=== PATIENT | female | born 1995 | race Caucasian/White ===

== ENCOUNTER 2016-11-11 06:00 | Inpatient (IN) | payer OTHER ==
[2016-11-11] MEDS ORDERED: CARBOPROST TROMETHAMINE 250 MCG/ML 1 ML AMP IM PRN (07:31)
[2016-11-11] MEDS ORDERED: LIDOCAINE 1% (PF) 10 MG/ML (30 ML SDV) SQ PRN (07:31)
[2016-11-11] MEDS ORDERED: OXYTOCIN 10 UNIT/ML 1 ML VIAL IM PRN (07:31)
[2016-11-11] MEDS ORDERED: TERBUTALINE 1 MG/ML VIAL SQ PRN (07:31)
[2016-11-11] MEDS ORDERED: METHYLERGONOVINE 0.2 MG/ML 1 ML AMP IM PRN (07:31)
[2016-11-11] MEDS: LACTATED RINGERS 1,000 ML IV SCH ×4 (07:44→23:07)
[2016-11-11] MEDS ORDERED: OXYTOCIN 30 UNITS/500 ML NS 30 UNIT in SALINE 1 500ML.BAG IV SCH ×2 (07:45→20:45)
[2016-11-11 08:23] VITALS: BMI 33.2
[2016-11-11 08:43] LABS: Basophils % (A) 0 %; Eosinophils # (A) 0.2 k/uL (0-0.7); Eosinophils % (A) 2 %; HCT 36.8 % (34.0-46.0); HDW 2.55; HGB 11.9 gm/dL (11.4-16.0); Large Platelets Flag Moderate; Luc # (Auto) 0.24; Luc % (Auto) 3; Lymphocytes # (A) 2.8 k/uL (1.0-4.8); Lymphocytes % (A) 30 %; MCH 29.5 pg (25.0-35.0); MCHC 32.3 g/dL (31.0-37.0); MCV 91.3 fL (80.0-100.0); Monocytes # (A) 0.5 k/uL (0-1.0); Monocytes % (A) 5 %; Neutrophils # (A) 5.6 k/uL (1.3-7.7); Neutrophils % (A) 60 %; RBC 4.03 m/uL (3.80-5.40); RDW 14.2 % (11.5-15.5); WBC 9.3 k/uL (3.8-10.6); WBC (Perox) 10.04
--- NOTE | 2016-11-11 08:46 | P.HPOB ---
History of Present Illness H&P Date: 11/11/16 Chief Complaint: IUP term: grade III placenta Jennifer is a 21-year-old at 39 weeks gestation arise for induction of labor. Her cervix is dilated to 1 cm she's 8% effaced -2 station. Artificial rupture membranes was performed and clear fluid is noted. Her course has been, K by a great 3 placenta in the latter part of the for which she is receiving nonstress tests. Otherwise she is feeling well at this time and had no other significant problems with the . Her pertinent labs did include A- blood type Rh antibody was negative rubella was nonimmune hepatitis B surface antigen as well as RPR were both negative. Group B strep was also negative. Assessment intrauterine at term. Plan expect spontaneous vaginal delivery and she plans use epidural for analgesia. Past Medical History Past Medical History: Asthma Additional Past Medical History / Comment(s): allergies History of Any Multi-Drug Resistant Organisms: None Reported Past Surgical History: No Surgical Hx Reported Past Anesthesia/Blood Transfusion Reactions: No Reported Reaction Past Psychological History: No Psychological Hx Reported Smoking Status: Former smoker Past Alcohol Use History: None Reported Past Drug Use History: None Reported - Past Family History Mother Family Medical History: Asthma Medications and Allergies Home Medications Medication Instructions Recorded Confirmed Type Albuterol Sulfate [Proair Hfa] 2 puff INHALATION RT-QID PRN 04/15/16 10/10/16 History Fluticasone/Salmeterol [Advair 1 puff INHALATION RT-BID 04/15/16 10/10/16 History 500-50 Diskus] Pnv with Ca,No.72/Iron/FA 1 tab PO DAILY 10/10/16 10/10/16 History [ Plus Tablet] Allergies Allergy/AdvReac Type Severity Reaction Status Date / Time cat dander Allergy Unknown Verified 10/10/16 00:42 dandelion (Taraxacum Allergy Unknown Verified 10/10/16 00:42 officinale) dog dander Allergy Unknown Verified 10/10/16 00:42 grass pollen Allergy Unknown Verified 10/10/16 00:42 mold Allergy Unknown Verified 10/10/16 00:42 oak Allergy Unknown Verified 10/10/16 00:42 peanut Allergy Unknown Verified 10/10/16 00:42 peas Allergy Unknown Verified 10/10/16 00:42 DUST Allergy Unknown Uncoded 10/10/16 00:42 PINE TREES Allergy Unknown Uncoded 10/10/16 00:42 Exam Osteopathic Statement: *. No significant issues noted on an osteopathic structural exam other than those noted in the History and Physical/Consult. - Vital Signs Vital signs: Vital Signs Temp Pulse Resp BP 11/11/16 07:30 97.0 F L 74 16 103/65 Intake and Output 11/10/16 11/11/16 11/11/16 22:59 06:59 14:59 Other: Weight 72.121 kg Patient Weight 11/12/16 06:59 Weight 72.121 kg - OBG Physical Exam Breast: both: normal (no masses) Abdomen: bowel sounds normal, no diffuse tenderness, no bruit present, no guarding noted, no hepatomegaly, no splenomegaly, no mass Vulva: both: normal Vagina: normal moisture, no discharge Cervix: no lesion, no discharge Uterus: normal size, normal contour Adnexa: both: normal Anus/Rectum: normal perianal skin, no rectal mass, no hemorrhoids, heme negative
[2016-11-11 09:18] LABS: Large Platelets Present; Manual Review Performed
[2016-11-11] MEDS: BUTORPHANOL 1 MG/ML 1 ML VIAL IV PRN ×3 (11:49→18:32)
[2016-11-11] MEDS ORDERED: ceFAZolin 2 GM in SODIUM CHLORIDE 0.9% 100 ML IVPB ONE (19:44)
[2016-11-11] MEDS ORDERED: CITRIC ACID-SODIUM CITRATE 15 ML CUP PO ONE (19:44)
[2016-11-11] MEDS ORDERED: MORPHINE SULFATE (PF) 0.3 MG/0.3 ML SYR ONE (20:01)
[2016-11-11] MEDS ORDERED: ePHEDrine 50 MG/ML 1 ML AMP ONE (20:01)
[2016-11-11] MEDS ORDERED: fentaNYL (PF) 50 MCG/ML 2 ML AMP ONE (20:01)
[2016-11-11] MEDS ORDERED: ONDANSETRON 4 MG/2 ML VIAL ONE (20:01)
[2016-11-11] MEDS ORDERED: OXYTOCIN 10 UNIT/ML 1 ML VIAL IM ONE (20:01)
[2016-11-11] MEDS ORDERED: Acetaminophen-Codeine 300-30mg TAB PO PRN (20:40)
[2016-11-11] MEDS ORDERED: SIMETHICONE 80 MG CHEWABLE PO PRN (20:40)
[2016-11-11] MEDS ORDERED: diphenhydrAMINE 50 MG/ML 1 ML VIAL IVP PRN ×2 (20:40)
[2016-11-11] MEDS ORDERED: diphenhydrAMINE 25 MG CAP PO PRN (20:40)
[2016-11-11] MEDS ORDERED: MEASLES-MUMPS-RUBELLA VACC/PF 12,500 UNIT/0.5 ML VIAL SQ ONE (20:40)
[2016-11-11] MEDS ORDERED: ACETAMINOPHEN TAB 325 MG TAB PO PRN (20:40)
[2016-11-11] MEDS ORDERED: diphenhydrAMINE 50 MG CAP PO PRN (20:40)
[2016-11-11] MEDS ORDERED: ZOLPIDEM 5 MG TAB PO PRN (20:40)
[2016-11-11] MEDS ORDERED: METOCLOPRAMIDE 5 MG/ML 2 ML VIAL IVP PRN (20:40)
--- NOTE | 2016-11-11 20:45 | P.OP ---
Date of Procedure: 11/11/16 Preoperative Diagnosis: Intrauterine at 39 weeks with grade 3 placenta: Arrested dilatation Postoperative Diagnosis: Same Procedure(s) Performed: Primary low transverse section from Pfannenstiel Anesthesia: spinal Surgeon: Evan Verdin Edi Specialist #1: Kelli Krause Estimated Blood Loss (ml): 400 IV fluids (ml): 1,000 Urine output (ml): 100 Pathology: other (Placenta) Condition: stable Disposition: floor Operative Findings: Female scores of 9 and 10 at one and 5 minutes Plover weight was 6 lbs. 15 oz. baby was delivered from left occiput transverse position with a cord around the body Description of Procedure: Patient was taken to the operating suite where a spinal anesthetic was found to be adequate. She was prepped and draped in the normal sterile fashion and placed in the dorsal supine position with leftward tilt. Initially a Pfannenstiel skin incision was made and this incision was then carried through to underlying layer of the fashion with second knife. Fascia was then nicked in the midline and this opening was extended laterally with Torrez scissors. Superior and inferior aspect of this incision were then grasped tented up and bluntly and sharply dissected off the rectus muscles. Rectus muscles were then divided the midline and sharp dissection through the peritoneum was made. This opening was then extended superiorly and inferiorly with good visualization of both bowel bladder. Bladder blade was then placed vesicouterine peritoneum was identified and grasped with pickups. Was entered sharply with Metzenbaum scissors and extended across face of the uterus. Bladder flap was then digitally created. Knife was then used to incise uterus this opening was then created fully with hemostat and then was bluntly extended. Head was then atraumatically delivered and mouth nares were bulb suctioned. Interim posterior shoulders were then delivered gentle downward and upward traction followed by the remainder the baby. Umbilical cord was clamped and cut in usual fashion an nursery personnel was present to assume care. Placenta was then delivered intact Pitocin was added to the IV uterus was exteriorized cleared of clots and debris and closed in 2 layers with 0 Vicryl suture. Once excellent hemostasis was obtained 3-0 Vicryl was used to reapproximate the bladder flap. Blood and debris was suctioned from the posterior cul-de-sac and the uterus was reinserted into the abdomen. Peritoneal layer was then closed with 0 Vicryl suture fascial layer was closed with 0 Vicryl suture one layer of 3-0 Vicryl was placed in deep subcuticular tissues reapproximate the skin and close the space and skin was closed with 3-0 Vicryl on a Shabbir needle. Sponge, lap, needle counts were all correct 2 and patient was taken to the recovery room in stable and satisfactory condition.
[2016-11-12] MEDS ORDERED: Rhogam IMMUNE GLOBULIN 1,500 UNIT/1 ML IM ONE (03:59)
[2016-11-12] MEDS: KETOROLAC 30 MG/ML 1 ML VIAL IVP PRN ×4 (04:28→23:38)
[2016-11-12] MEDS: LACTATED RINGERS 1,000 ML IV SCH (07:59)
[2016-11-12] MEDS: SENNOSIDES-DOCUSATE SODIUM 1 EACH TAB PO SCH ×2 (08:28→20:30)
--- NOTE | 2016-11-12 08:46 | P.PNOBGPC ---
Subjective - Subjective Principal diagnosis: Postop day 1 Interval history: Jennifer seen and evaluated. She is ambulating, voiding and she is tolerating her diet this time. Vital signs are stable and she is afebrile. Her regular, lungs clear, extremities without pain. Assessment postop day 1. Plan continue current care. Objective - Vital Signs Latest vital signs: Vital Signs Temp Pulse Resp BP Pulse Ox 11/12/16 08:00 97.4 F L 68 17 106/64 97 11/12/16 03:30 99.0 F 73 14 99/69 11/11/16 22:55 97.5 F L 75 16 105/58 11/11/16 22:25 100 16 135/61 11/11/16 21:55 87 16 101/57 11/11/16 21:40 82 16 119/67 11/11/16 21:25 88 16 112/54 11/11/16 21:10 108 H 16 126/66 11/11/16 20:55 97.5 F L 96 16 120/69 Intake and Output 11/11/16 11/12/16 11/12/16 22:59 06:59 14:59 Intake Total 1000 Output Total 2000 Balance -1000 Intake: IV 1000 Lactated Ringers 1,000 ml 1000 @ 125 mls/hr IV .Q8H KAYODE Rx#:[id number] Output: Urine 2000 Uretheral ([place]) 1400 Other: # Voids 0 - Exam Lungs: bilateral: normal Chest: Normal S1, Normal S2 Extremities: Present: normal Abdomen: Present: normal appearance, soft. Absent: distention, tenderness Incision: Present: normal, dry, intact Uterus: Present: normal, firm
[2016-11-12 09:56] LABS: Basophils % (A) 0 %; CH 29.9; CHCM 32.6; Eosinophils # (A) 0.1 k/uL (0-0.7); Eosinophils % (A) 1 %; HCT 33.9 % (34.0-46.0); HDW 2.48; HGB 11.1 gm/dL (11.4-16.0); Large Platelets Flag Moderate; Luc # (Auto) 0.16; Luc % (Auto) 2; Lymphocytes # (A) 1.7 k/uL (1.0-4.8); Lymphocytes % (A) 19 %; MCH 30.1 pg (25.0-35.0); MCHC 32.7 g/dL (31.0-37.0); Mean Platelet Volume 11.5; Monocytes # (A) 0.5 k/uL (0-1.0); Monocytes % (A) 6 %; Neutrophils # (A) 6.4 k/uL (1.3-7.7); Neutrophils % (A) 72 %; RBC 3.68 m/uL (3.80-5.40); RDW 14.2 % (11.5-15.5); WBC (Perox) 9.23
--- NOTE | 2016-11-12 10:12 | P.PN ---
Progress Note - Text 0720 Anesthesia POD 1. Patient is status post section under final anesthesia with intra-thecal preservative free morphine re-100 g. Moderate pruritus, good post-op analgesia, and O headache or other complications.
[2016-11-12 11:24] LABS: Large Platelets Present; Manual Review Performed
[2016-11-12] MEDS: Acetaminophen-Codeine 300-30mg TAB PO PRN (20:30)
[2016-11-13] MEDS: Acetaminophen-Codeine 300-30mg TAB PO PRN (03:51)
[2016-11-13] MEDS: SENNOSIDES-DOCUSATE SODIUM 1 EACH TAB PO SCH ×2 (07:50→20:49)
[2016-11-13] MEDS: IBUPROFEN 600 MG TAB PO PRN ×2 (08:12→17:00)
--- NOTE | 2016-11-13 08:44 | P.PNOBGPC ---
Subjective - Subjective Principal diagnosis: Postoperative day 2 Interval history: Overall Jennifer is doing well. She is able to ambulate and void. She is tolerating her diet. She does report pain pills that she is on her not controlled her pain is well she would like we'll therefore switch her to [place]. Otherwise her vital signs are stable and she is afebrile. Objective - Vital Signs Latest vital signs: Vital Signs Temp Pulse Resp BP Pulse Ox 11/13/16 07:48 98.2 F 66 16 111/68 11/13/16 04:00 97.5 F L 84 16 114/69 11/13/16 00:00 98.1 F 78 16 97/56 11/12/16 20:00 98.4 F 62 16 99/59 11/12/16 16:00 97.4 F L 77 17 99/63 96 11/12/16 12:00 97.9 F 71 19 99/52 96 Intake and Output 11/12/16 11/13/16 11/13/16 22:59 06:59 14:59 Other: # Voids 2 2 - Exam Lungs: bilateral: normal Chest: Normal S1, Normal S2 Extremities: Present: normal Abdomen: Present: normal appearance, soft. Absent: distention, tenderness Incision: Present: normal, dry, intact Uterus: Present: normal, firm - Labs Labs: Abnormal Lab Results - Last 24 Hours (Table) 11/12/16 Range/Units 09:13 RBC 3.68 L (3.80-5.40) m/uL Hgb 11.1 L (11.4-16.0) gm/dL Hct 33.9 L (34.0-46.0) % Plt Count 123 L (150-450) k/uL
[2016-11-13] MEDS ORDERED: HYDROcodone/APAP 5-325MG 1 EACH TAB PO PRN (08:45)
[2016-11-13] MEDS: HYDROcodone/APAP 5-325MG 1 EACH TAB PO PRN ×2 (12:39→20:48)
[2016-11-14] MEDS: HYDROcodone/APAP 5-325MG 1 EACH TAB PO PRN ×3 (01:03→22:05)
[2016-11-14] MEDS: SENNOSIDES-DOCUSATE SODIUM 1 EACH TAB PO SCH ×2 (07:27→19:56)
--- NOTE | 2016-11-14 10:40 | P.PNOBGPC ---
Subjective - Subjective Principal diagnosis: Postop day 3 Interval history: Patient overall is doing well. She is ambulating, voiding and tolerating her diet. However she does voice that she still has significant pain that she has difficulty after meeting hour after to our's after taking pain medicine as pain comes back is very bad. She would like to stay until tomorrow and see if we get her pain is better under control. Vital signs otherwise stable she is afebrile. Heart regular, lungs clear, extremities without pain. Abdomen is soft uterus is firm incision is clean dry and intact. Objective - Vital Signs Latest vital signs: Vital Signs Temp Pulse Resp BP Pulse Ox 11/14/16 07:27 97.8 F 76 16 110/71 11/14/16 00:00 97.8 F 66 16 120/69 97 11/13/16 15:42 98.0 F 63 16 102/60 - Exam Lungs: bilateral: normal Chest: Normal S1, Normal S2 Extremities: Present: normal Abdomen: Present: normal appearance, soft. Absent: distention, tenderness Incision: Present: normal, dry, intact Uterus: Present: normal, firm
[2016-11-14] MEDS: IBUPROFEN 600 MG TAB PO PRN ×2 (10:48→15:41)
[2016-11-15] MEDS: IBUPROFEN 600 MG TAB PO PRN ×2 (03:43→12:56)
--- NOTE | 2016-11-15 05:45 | P.DS ---
Providers Date of admission: 11/11/16 07:09 Expected date of discharge: 11/15/16 Attending physician: Evan Verdin Primary care physician: Andrew Loja - Discharge Diagnosis(es) (1) delivery delivered Current Visit: Yes Status: Acute Hospital Course: Pt underwent primary low transverse . She had an uncomplicated post operative course. Her pain is controlled with po meds. Tolerating reg diet. Denies N/V, F/C, CP, SOB, calf pain. She will be discharged home POD #4 in stable condition to follow up with Dr Verdin in 1 week. Plan - Discharge Summary New Discharge Prescriptions: HYDROcodone/APAP 5-325MG [[place] 5-325] 1 tab PO Q4HR PRN #30 tab PRN Reason: Pain Ibuprofen [Motrin] 600 mg PO Q6HR PRN #30 tab PRN Reason: Pain Discharge Medication List Albuterol Sulfate [Proair Hfa] 2 puff INHALATION RT-QID PRN 04/15/16 [History] Fluticasone/Salmeterol [Advair 500-50 Diskus] 1 puff INHALATION RT-BID 04/15/16 [History] Pnv with Ca,No.72/Iron/FA [ Plus Tablet] 1 tab PO DAILY 10/10/16 [ History] HYDROcodone/APAP 5-325MG [[place] 5-325] 1 tab PO Q4HR PRN #30 tab 11/14/16 [Rx] Ibuprofen [Motrin] 600 mg PO Q6HR PRN #30 tab 11/14/16 [Rx] Follow up Appointment(s)/Referral(s): Evan Verdin DO [Doctor of Osteopathic Medicine] - 1 Week Activity/Diet/Wound Care/Special Instructions: No heavy lifting limited stairs and driving and pelvic rest. If any high temperatures, heavy bleeding, or severe pain, Discharge Disposition: HOME SELF-CARE
[2016-11-15] MEDS: HYDROcodone/APAP 5-325MG 1 EACH TAB PO PRN (08:22)
[2016-11-15] MEDS: SENNOSIDES-DOCUSATE SODIUM 1 EACH TAB PO SCH (08:22)
[2016-11-15 08:58] VITALS: BP 110/70; PULSE 68; RESP 20; TEMP 97.2
== END 2016-11-15 15:15 | disposition home or self-care (01) | DRG 766 ==
LOC: 4FBP 07:09
PROVIDERS: ADMIT Obstetrics & Gynecology; ATTEND Obstetrics & Gynecology
PROC: 3E0R3CZ (ICD-10-PCS; principal; 2016-11-11 20:00)
PROC: 00HU33Z Insertion of Infusion Device into Spinal Canal, Percutaneous Approach (ICD-10-PCS; principal; 2016-11-11 20:00)
PROC: 10D00Z1 Extraction of Products of Conception, Low, Open Approach (ICD-10-PCS; principal; 2016-11-11 20:00)
PROC: 3E033VJ Introduction of Other Hormone into Peripheral Vein, Percutaneous Approach (ICD-10-PCS; principal; 2016-11-11 20:00)
PROC: 10907ZC Drainage of Amniotic Fluid, Therapeutic from Products of Conception, Via Natural or Artificial Opening (ICD-10-PCS; principal; 2016-11-11 20:00)
DX: O62.1 Secondary uterine inertia (principal); J45.909 Unspecified asthma, uncomplicated; O43.893 Other placental disorders, third trimester; Z37.0 Single live birth; Z87.891 Personal history of nicotine dependence; Z3A.39 39 weeks gestation of pregnancy; O99.52 Diseases of the respiratory system complicating childbirth; Z79.899 Other long term (current) drug therapy
CPT/HCPCS: 85025; 85461; 88307; 90707

== ENCOUNTER 2017-03-15 23:01 | Emergency (ER) | payer OTHER ==
[2017-03-15 23:40] VITALS: BP 104/64; PULSE 72; RESP 18; TEMP 97.3
--- NOTE | 2017-03-16 01:14 | ED ---
ENT HPI - General Chief complaint: ENT Stated complaint: wants tonsils checked Time Seen by Provider: 03/16/17 00:31 Source: patient, RN notes reviewed, old records reviewed Mode of arrival: ambulatory Limitations: no limitations - History of Present Illness Initial comments: 21 year old female with sore throat for 2 days, chills no recorded fever. PAtient is concerned because she has a baby and does not want it to be sick. Patient reports difficult and painful to swallow, denies any history of sick contacts. Patient has no cough, shortness of breath, nausea, vomiting, chest pain, headache, dizziness. - Related Data Home Medications Medication Instructions Recorded Confirmed Albuterol Sulfate [Proair Hfa] 2 puff INHALATION RT-QID PRN 04/15/16 03/15/17 Fluticasone/Salmeterol [Advair 1 puff INHALATION RT-BID 04/15/16 03/15/17 500-50 Diskus] Pnv,Calcium 72/Iron/Folic Acid 1 tab PO DAILY 10/10/16 03/15/17 [ Plus Tablet] Previous Rx's Medication Instructions Recorded Azithromycin [Zithromax Z-pack] 250 mg PO DIRECTED #6 tab 03/16/17 Allergies Allergy/AdvReac Type Severity Reaction Status Date / Time cat dander Allergy Unknown Verified 10/10/16 00:42 dandelion (Taraxacum Allergy Unknown Verified 10/10/16 00:42 officinale) dog dander Allergy Unknown Verified 10/10/16 00:42 grass pollen Allergy Unknown Verified 10/10/16 00:42 mold Allergy Unknown Verified 10/10/16 00:42 oak Allergy Unknown Verified 10/10/16 00:42 peanut Allergy Unknown Verified 10/10/16 00:42 peas Allergy Unknown Verified 10/10/16 00:42 DUST Allergy Unknown Uncoded 10/10/16 00:42 PINE TREES Allergy Unknown Uncoded 10/10/16 00:42 Review of Systems ROS Statement: Those systems with pertinent positive or pertinent negative responses have been documented in the HPI. ROS Other: All systems not noted in ROS Statement are negative. Past Medical History Past Medical History: Asthma Additional Past Medical History / Comment(s): allergies History of Any Multi-Drug Resistant Organisms: None Reported Past Surgical History: Section Past Anesthesia/Blood Transfusion Reactions: No Reported Reaction Past Psychological History: No Psychological Hx Reported Smoking Status: Former smoker Past Alcohol Use History: Occasional Past Drug Use History: None Reported - Past Family History Mother Family Medical History: Asthma General Exam - General Exam Comments Initial Comments: This is a well appearing 21 year old female, no distress. Limitations: no limitations General appearance: alert, in no apparent distress Head exam: Present: atraumatic, normocephalic, normal inspection Eye exam: Present: normal appearance, PERRL, EOMI. Absent: scleral icterus, conjunctival injection, periorbital swelling ENT exam: Present: normal oropharynx, mucous membranes moist. Absent: normal exam (erythematous oropharynx, white exudates. ) Neck exam: Present: normal inspection. Absent: tenderness, meningismus, lymphadenopathy Respiratory exam: Present: normal lung sounds bilaterally. Absent: respiratory distress, wheezes, rales, rhonchi, stridor Cardiovascular Exam: Present: regular rate, normal rhythm, normal heart sounds. Absent: systolic murmur, diastolic murmur, rubs, gallop, clicks GI/Abdominal exam: Present: soft, normal bowel sounds. Absent: distended, tenderness, guarding, rebound, rigid Extremities exam: Present: normal inspection, full ROM, normal capillary refill. Absent: tenderness, pedal edema, joint swelling, calf tenderness Back exam: Present: normal inspection Neurological exam: Present: alert, oriented X3, CN II-XII intact Psychiatric exam: Present: normal affect, normal mood Skin exam: Present: warm, dry, intact, normal color. Absent: rash Course Vital Signs 03/15/17 03/16/17 23:36 01:30 Temperature 97.3 F L 97.3 F L Pulse Rate 72 72 Respiratory 18 18 Rate Blood Pressure 104/64 104/64 O2 Sat by Pulse 97 97 Oximetry Medical Decision Making - Medical Decision Making This is a 21 year old female, with 2 days of sore throat and chills. Patient has erytheatous oropharynx with white exudates. Patient rapid strep is negative , given appearance of tonsils, patient will be started on azithromycin. Discussed follow up with PCP. Return parameters discussed. - Lab Data Lab Results 03/16/17 Range/Units 00:51 Group A Strep Rapid Negative (Negative) Disposition Clinical Impression: Pharyngitis Disposition: HOME SELF-CARE Condition: Good Instructions: Pharyngitis (ED) Additional Instructions: Patient advised to rest, increase fluids. Take cough drops and throat lozenges as needed. Completely anabiotic prescription. Follow-up with primary care provider if symptoms continue to persist. Prescriptions: Azithromycin [Zithromax Z-pack] 250 mg PO DIRECTED #6 tab Referrals: Andrew Loja DO [Primary Care Provider] - 1-2 days Time of Disposition: 01:14
== END 2017-03-16 01:30 | disposition home or self-care (01) ==
LOC: EC 23:01
DX: J02.9 Acute pharyngitis, unspecified (principal); J45.909 Unspecified asthma, uncomplicated; Z79.51 Long term (current) use of inhaled steroids; Z91.010 Allergy to peanuts; Z91.048 Other nonmedicinal substance allergy status
CPT/HCPCS: 87081; 87430; 99283

== ENCOUNTER → 2018-03-31 | Outpatient (CLI) | payer OTHER ==
[2018-03-31 20:24] LABS: Hepatitis A Antibody IgM Non-Reactive (Non-Reactive); Hepatitis B Core IgM Non-Reactive (Non-Reactive)
[2018-03-31 21:14] LABS: HIV AB P24 Non-Reactive (Non-Reactive); HIV P24 AG Non-Reactive (Non-Reactive)
== END | disposition home or self-care (01) ==
LOC: LABWHC1 14:53
PROVIDERS: ATTEND Physician Assistant
DX: Z11.3 Encounter for screening for infections with a predominantly sexual mode of transmission (principal)
CPT/HCPCS: 36415; 80074; 86780; 87390

== ENCOUNTER 2018-04-06 18:06 | Emergency (ER) | payer OTHER ==
[2018-04-06 18:34] VITALS: BP 124/82; PULSE 77; RESP 18; TEMP 98.2
--- NOTE | 2018-04-06 19:21 | ED ---
General Adult HPI - General Chief complaint: Urogenital Stated complaint: POSS STD Time Seen by Provider: 04/06/18 19:04 Source: patient, RN notes reviewed Mode of arrival: ambulatory Limitations: no limitations - History of Present Illness Initial comments: 22-year-old female presents to the emergency department for STD testing patient had complete STD panel drawn last week. Patient was prophylactically treated for gonorrhea and Chlamydia already. Patient states she only tested positive for a blood draw of herpes simplex virus. Patient is wondering if this means she has genital herpes and is here for a second opinion. She states the people at her doctor's office who told her she had herpes simplex virus left eye her and did not explain to her what it meant. Patient denies any symptoms at this time. Patient denies burning with urination or any pain. No discharge. Patient has no other complaints at this time including shortness of breath, chest pain, abdominal pain, nausea or vomiting, headache, or visual changes. - Related Data Home Medications Medication Instructions Recorded Confirmed Albuterol Sulfate [Proair Hfa] 2 puff INHALATION RT-QID PRN 04/15/16 03/15/17 Fluticasone/Salmeterol [Advair 1 puff INHALATION RT-BID 04/15/16 03/15/17 500-50 Diskus] Pnv,Calcium 72/Iron/Folic Acid 1 tab PO DAILY 10/10/16 03/15/17 [ Plus Tablet] Previous Rx's Medication Instructions Recorded Azithromycin [Zithromax Z-pack] 250 mg PO DIRECTED #6 tab 03/16/17 Allergies Allergy/AdvReac Type Severity Reaction Status Date / Time cat dander Allergy Unknown Verified 10/10/16 00:42 dandelion (Taraxacum Allergy Unknown Verified 10/10/16 00:42 officinale) dog dander Allergy Unknown Verified 10/10/16 00:42 grass pollen Allergy Unknown Verified 10/10/16 00:42 mold Allergy Unknown Verified 10/10/16 00:42 oak Allergy Unknown Verified 10/10/16 00:42 peanut Allergy Unknown Verified 10/10/16 00:42 peas Allergy Unknown Verified 10/10/16 00:42 DUST Allergy Unknown Uncoded 10/10/16 00:42 PINE TREES Allergy Unknown Uncoded 10/10/16 00:42 Review of Systems ROS Statement: Those systems with pertinent positive or pertinent negative responses have been documented in the HPI. ROS Other: All systems not noted in ROS Statement are negative. Past Medical History Past Medical History: Asthma Additional Past Medical History / Comment(s): allergies History of Any Multi-Drug Resistant Organisms: None Reported Past Surgical History: Section Past Anesthesia/Blood Transfusion Reactions: No Reported Reaction Past Psychological History: No Psychological Hx Reported Smoking Status: Former smoker Past Alcohol Use History: Occasional Past Drug Use History: None Reported - Past Family History Mother Family Medical History: Asthma General Exam Limitations: no limitations General appearance: alert, in no apparent distress Head exam: Present: atraumatic, normocephalic, normal inspection Eye exam: Present: normal appearance, PERRL, EOMI. Absent: scleral icterus, conjunctival injection, periorbital swelling ENT exam: Present: normal exam, mucous membranes moist Neck exam: Present: normal inspection. Absent: tenderness, meningismus, lymphadenopathy Respiratory exam: Present: normal lung sounds bilaterally. Absent: respiratory distress, wheezes, rales, rhonchi, stridor Cardiovascular Exam: Present: regular rate, normal rhythm, normal heart sounds. Absent: systolic murmur, diastolic murmur, rubs, gallop, clicks Course Vital Signs 04/06/18 18:31 Temperature 98.2 F Pulse Rate 77 Respiratory 18 Rate Blood Pressure 124/82 O2 Sat by Pulse 99 Oximetry Medical Decision Making - Medical Decision Making 22-year-old female presents to the emergency department for STD testing. Patient has been treated prophylactically for gonorrhea and Chlamydia 1 week ago. Patient has no symptoms at this time. Patient had a complete STD testing done including HIV. Patient tested positive for a blood draw of HSV and is concerned she might have genital herpes. Patient denies any sores. Patient states her doctor's office told her she tested positive for HSV in her blood but did not describe what it meant. I educated patient that if she develops sores she needs to get a swab of a sore. Otherwise, a blood draw for HSV does not differentiate genital herpes from different strain of herpes. I offered to redraw blood to retest for STDs which she had originally come to the ER for. Patient declines at this time because she now understands the HSV testing. She also declines because she does not want to pay for all the testing again. She does not want repeat prophylactic treatment because she is not having any symptoms. She will come back if she develops any symptoms or any other concerns. Otherwise she will follow-up with primary care or health department in one to 2 days. Disposition Clinical Impression: Normal exam Disposition: HOME SELF-CARE Condition: Good Additional Instructions: Please follow up with primary care provider in one to 2 days. You may also go to the health department if you have any other concerns. Return to the emergency department if you have any worsening symptoms. Is patient prescribed a controlled substance at d/c from ED?: No Referrals: Andrew Loja DO [Primary Care Provider] - 1-2 days Time of Disposition: 19:21
== END 2018-04-06 19:27 | disposition home or self-care (01) ==
LOC: EC 18:06
DX: Z03.89 Encounter for observation for other suspected diseases and conditions ruled out (principal); J45.909 Unspecified asthma, uncomplicated; Z87.891 Personal history of nicotine dependence; Z79.51 Long term (current) use of inhaled steroids; Z91.010 Allergy to peanuts; Z91.018 Allergy to other foods; Z91.048 Other nonmedicinal substance allergy status; Z91.09 Other allergy status, other than to drugs and biological substances
CPT/HCPCS: 99282

== ENCOUNTER → 2018-11-28 | Outpatient (CLI) | payer OTHER ==
[2018-11-28 17:02] LABS: Basophils % (A) 1 %; Eosinophils # (A) 0.1 k/uL (0-0.7); Eosinophils % (A) 2 %; HCT 45.2 % (34.0-46.0); HGB 15.1 gm/dL (11.4-16.0); Lymphocytes # (A) 1.3 k/uL (1.0-4.8); Lymphocytes % (A) 19 %; MCH 30.6 pg (25.0-35.0); MCHC 33.4 g/dL (31.0-37.0); MCV 91.6 fL (80.0-100.0); Mean Platelet Volume 9.6; Monocytes # (A) 0.4 k/uL (0-1.0); Monocytes % (A) 6 %; Neutrophils % (A) 72 %; Platelet Count 175 k/uL (150-450); RBC 4.93 m/uL (3.80-5.40); RDW 12.7 % (11.5-15.5)
[2018-11-28 17:13] LABS: ALT 23 U/L (9-52); AST 16 U/L (14-36); Albumin 4.9 g/dL (3.5-5.0); Alkaline Phosphatase 51 U/L (38-126); Anion Gap 9 mmol/L; Blood Urea Nitrogen 10 mg/dL (7-17); Calcium 10.1 mg/dL (8.4-10.2); Carbon Dioxide 26 mmol/L (22-30); Chloride 105 mmol/L (98-107); Glucose 94 mg/dL (74-99); Potassium 3.9 mmol/L (3.5-5.1); Sodium 140 mmol/L (137-145); Total Bilirubin 0.3 mg/dL (0.2-1.3); Total Protein 7.8 g/dL (6.3-8.2)
[2018-11-28 17:31] LABS: T4, Free (Free Thyroxine) 0.92 ng/dL (0.78-2.19)
--- NOTE | 2018-11-29 09:26 | XR ---
EXAMINATION TYPE: XR chest 2V DATE OF EXAM: 11/28/2018 COMPARISON: NONE TECHNIQUE: PA and lateral views submitted. HISTORY: Cough FINDINGS: The lungs are clear and there is no pneumothorax, pleural effusion, or focal pneumonia. IMPRESSION: 1. No acute process.
== END | disposition home or self-care (01) ==
LOC: RADXRMAIN 16:23
PROVIDERS: ATTEND Physician Assistant
DX: R05 Cough (principal); R82.79 Other abnormal findings on microbiological examination of urine; R63.4 Abnormal weight loss
CPT/HCPCS: 71046; 80053; 84439; 84443; 85025; 87086

== ENCOUNTER 2019-01-18 17:17 | Emergency (ER) | payer OTHER ==
[2019-01-18 17:26] VITALS: BP 122/83; PULSE 100; RESP 18; TEMP 97.8
[2019-01-18 17:52] LABS: Amorphous Sediment,Urine Rare /hpf; Appearance,Urine Clear (Clear); Bilirubin,Urine Negative (Negative); Blood,Urine Negative (Negative); Color,Urine Yellow; Glucose,Urine (UA) Negative (Negative); Ketones,Urine Negative (Negative); Leukocyte Esterase,Urine Small (Negative); Mucus,Urine Many /hpf; Nitrite,Urine Negative (Negative); PH, Urine 6.5 (5.0-8.0); Protein,Urine Negative (Negative); RBC,Urine <1 /hpf (0-5); Specific Gravity,Urine 1.019 (1.001-1.035); Squamous Epithelial Cell,Urine 4 /hpf (0-4); Urobilinogen,Urine <2.0 mg/dL (<2.0); WBC,Urine 1 /hpf (0-5)
--- NOTE | 2019-01-18 17:56 | ED ---
Female Urogenital HPI - General Chief complaint: Vaginal Bleeding Stated complaint: Poss Miscarriage Time Seen by Provider: 01/18/19 17:31 Source: patient Mode of arrival: ambulatory Limitations: no limitations - History of Present Illness Initial comments: 23-year-old female with no past medical history presents today for chief complaint of vaginal bleeding. Patient states that she had her period at the end of December about a month ago. She states she began having abdominal cramping yesterday bilaterally she states he felt similar to period cramps. Patient denies any severe abdominal pain. Patient states she began to bleed, for the past 2 days shortly after the cramping. Patient states she passed something that looked like it could possibly have been a baby, and she said she experienced clotting. Patient presented for test. Patient denies taking test prior to arrival. Patient denies any skin pain today. Patient denies heavy vaginal bleeding. Patient states she goes through 3 pads a day. Patient denies any recent fever, chills, shortness of breath, chest pain, back pain, abdominal pain, nausea or vomiting, numbness or tingling, vaginal discharge, dysuria or hematuria, constipation or diarrhea, headaches or visual changes, or any other complaints. - Related Data Home Medications Medication Instructions Recorded Confirmed Albuterol Sulfate [Proair Hfa] 2 puff INHALATION RT-QID PRN 04/15/16 01/18/19 Fluticasone/Salmeterol [Advair 1 puff INHALATION RT-BID 04/15/16 01/18/19 500-50 Diskus] Fluticasone Nasal [place] [Flonase 2 spray EA NOSTRIL BID 01/18/19 01/18/19 Nasal [place]] Montelukast [Singulair] 10 mg PO HS 01/18/19 01/18/19 Allergies Allergy/AdvReac Type Severity Reaction Status Date / Time cat dander Allergy Unknown Verified 01/18/19 17:40 dandelion (Taraxacum Allergy Unknown Verified 01/18/19 17:40 officinale) dog dander Allergy Unknown Verified 01/18/19 17:40 grass pollen Allergy Unknown Verified 01/18/19 17:40 mold Allergy Unknown Verified 01/18/19 17:40 oak Allergy Unknown Verified 01/18/19 17:40 peanut Allergy Unknown Verified 01/18/19 17:40 peas Allergy Unknown Verified 01/18/19 17:40 DUST Allergy Unknown Uncoded 01/18/19 17:26 PINE TREES Allergy Unknown Uncoded 01/18/19 17:26 Review of Systems ROS Statement: Those systems with pertinent positive or pertinent negative responses have been documented in the HPI. ROS Other: All systems not noted in ROS Statement are negative. Past Medical History Past Medical History: Asthma Additional Past Medical History / Comment(s): allergies History of Any Multi-Drug Resistant Organisms: None Reported Past Surgical History: Section Past Anesthesia/Blood Transfusion Reactions: No Reported Reaction Past Psychological History: No Psychological Hx Reported Smoking Status: Former smoker Past Alcohol Use History: Occasional Past Drug Use History: None Reported - Past Family History Mother Family Medical History: Asthma General Exam - General Exam Comments Initial Comments: General: The patient is awake and alert, in no distress, and does not appear acutely ill. Eye: Pupils are equal, round and reactive to light, extra-ocular movements are intact. No nystagmus. There is normal conjunctiva bilaterally. No signs of icterus. Ears, nose, mouth and throat: There are moist mucous membranes and no oral lesions. Neck: The neck is supple, there is no tenderness or JVD. Cardiovascular: There is a regular rate and rhythm. No murmur, rub or gallop is appreciated. Respiratory: Lungs are clear to auscultation, respirations are non-labored, breath sounds are equal. No wheezes, stridor, rales, or rhonchi. Gastrointestinal: Soft, non-distended, non-tender abdomen without masses or organomegaly noted. There is no rebound or guarding present. No CVA tenderness. Bowel sounds are unremarkable. Musculoskeletal: Normal ROM, no tenderness. Strength 5/5. Sensation intact. Radial pulses equal bilaterally 2+. Neurological: A&O x 3. CN II-XII intact, There are no obvious motor or sensory deficits. Coordination appears grossly intact. Speech is normal. Skin: Skin is warm and dry and no rashes or lesions are noted. Psychiatric: Cooperative, appropriate mood & affect, normal judgment. Limitations: no limitations Course Vital Signs 01/18/19 17:23 Temperature 97.8 F Pulse Rate 100 Respiratory 18 Rate Blood Pressure 122/83 O2 Sat by Pulse 100 Oximetry Medical Decision Making - Medical Decision Making 23-year-old female presenting for vaginal bleeding. No significant tenderness on examination. Patient. About a month prior. Patient states cramping is similar to previous periods. She showed temperature from abnormal tissue. Appeared to be blood clot. Vital signs within normal limits. Patient's urine hCG negative. Patient will be discharged with outpatient primary care follow- up. Discussed the case attempted prior Dr. Munoz prior to patient's discharge. Agreeable plan. Patient denies any questions, states she has satisfied with care and agreeable discharge. - Lab Data Lab Results 01/18/19 01/18/19 Range/Units 17:32 17:32 Urine Color Yellow Urine Appearance Clear (Clear) Urine pH 6.5 (5.0-8.0) Ur Specific [place] 1.019 (1.001-1.035) Urine Protein Negative (Negative) Urine Glucose (UA) Negative (Negative) Urine Ketones Negative (Negative) Urine Blood Negative (Negative) Urine Nitrite Negative (Negative) Urine Bilirubin Negative (Negative) Urine Urobilinogen <2.0 (<2.0) mg/dL Ur Leukocyte Esterase Small H (Negative) Urine RBC <1 (0-5) /hpf Urine WBC 1 (0-5) /hpf Ur Squamous Epith Cells 4 (0-4) /hpf Amorphous Sediment Rare H (None) /hpf Urine Mucus Many H (None) /hpf Urine HCG, Qual Not Detected (Not Detectd) Disposition Clinical Impression: Vaginal bleeding Disposition: HOME SELF-CARE Condition: Good Instructions (If sedation given, give patient instructions): Menstruation (ED) Additional Instructions: Please use medication as discussed. Please follow-up with family doctor in the next 2 days. Please return to emergency room if the symptoms increase or worsen or for any other concerns. Is patient prescribed a controlled substance at d/c from ED?: No Referrals: Andrew Loja DO [Primary Care Provider] - 1-2 days Time of Disposition: 17:56
== END 2019-01-18 18:13 | disposition home or self-care (01) ==
LOC: EC 17:17
DX: N93.9 Abnormal uterine and vaginal bleeding, unspecified (principal); Z32.02 Encounter for pregnancy test, result negative; J45.909 Unspecified asthma, uncomplicated; Z79.51 Long term (current) use of inhaled steroids; Z79.899 Other long term (current) drug therapy; Z91.09 Other allergy status, other than to drugs and biological substances; Z91.018 Allergy to other foods; Z88.8 Allergy status to other drugs, medicaments and biological substances; Z91.010 Allergy to peanuts; Z87.891 Personal history of nicotine dependence
CPT/HCPCS: 81001; 81025; 99284

== ENCOUNTER 2019-02-11 18:33 | Emergency (ER) | payer OTHER ==
[2019-02-11 18:39] VITALS: BP 101/63; PULSE 100; RESP 18; TEMP 98.3
[2019-02-11] MEDS ORDERED: CEPHALEXIN 500MG STARTER PACK 4 CAP BTL PO STA (19:02)
[2019-02-11] MEDS ORDERED: SULFAMETH-TMP DS STARTER PACK 2 TAB BTL PO STA (19:02)
--- NOTE | 2019-02-11 19:06 | ED ---
General Adult HPI - General Chief complaint: Recheck/Abnormal Lab/Rx Stated complaint: poss infected suture rt ring finger Time Seen by Provider: 02/11/19 18:42 Source: patient, RN notes reviewed Mode of arrival: ambulatory Limitations: no limitations - History of Present Illness Initial comments: 23-year-old female presents to the emergency department for a chief complaint of infection noted to the right fourth digit. Patient states she had a laceration sutured and came to have the sutures removed. Patient states it has looked infected and a few days after sutures were applied. Patient has had sutures in for 13 days, stated she did not realize it was that long. She states this laceration occurred when she cut her finger on sharp edge of a plate when she was doing dishes. Denies any spreading redness up the finger. Denies any difficulty moving the finger. denies fevers or chills. Patient has no other complaints at this time including shortness of breath, chest pain, abdominal pain, nausea or vomiting, headache, or visual changes. - Related Data Home Medications Medication Instructions Recorded Confirmed Albuterol Sulfate [Proair Hfa] 2 puff INHALATION RT-QID PRN 04/15/16 01/18/19 Fluticasone/Salmeterol [Advair 1 puff INHALATION RT-BID 04/15/16 01/18/19 500-50 Diskus] Fluticasone Nasal [place] [Flonase 2 spray EA NOSTRIL BID 01/18/19 01/18/19 Nasal [place]] Montelukast [Singulair] 10 mg PO HS 01/18/19 01/18/19 Previous Rx's Medication Instructions Recorded Cephalexin [Keflex] 500 mg PO Q6HR 10 Days cap 02/11/19 Sulfamethox-Tmp 800-160Mg [Bactrim 1 tab PO Q12HR #20 tab 02/11/19 DS 800-160 mg] Allergies Allergy/AdvReac Type Severity Reaction Status Date / Time cat dander Allergy Unknown Verified 02/11/19 18:39 dandelion (Taraxacum Allergy Unknown Verified 02/11/19 18:39 officinale) dog dander Allergy Unknown Verified 02/11/19 18:39 grass pollen Allergy Unknown Verified 02/11/19 18:39 mold Allergy Unknown Verified 02/11/19 18:39 oak Allergy Unknown Verified 04/13/19 18:39 peanut Allergy Unknown Verified 02/11/19 18:39 peas Allergy Unknown Verified 02/11/19 18:39 DUST Allergy Unknown Uncoded 02/11/19 18:39 PINE TREES Allergy Unknown Uncoded 02/11/19 18:39 Review of Systems ROS Statement: Those systems with pertinent positive or pertinent negative responses have been documented in the HPI. ROS Other: All systems not noted in ROS Statement are negative. Past Medical History Past Medical History: Asthma Additional Past Medical History / Comment(s): allergies History of Any Multi-Drug Resistant Organisms: None Reported Past Surgical History: Section Past Anesthesia/Blood Transfusion Reactions: No Reported Reaction Past Psychological History: No Psychological Hx Reported Smoking Status: Former smoker Past Alcohol Use History: Occasional Past Drug Use History: None Reported - Past Family History Mother Family Medical History: Asthma General Exam Limitations: no limitations General appearance: alert, in no apparent distress Head exam: Present: atraumatic Eye exam: Present: normal appearance, PERRL, EOMI. Absent: scleral icterus, conjunctival injection, periorbital swelling ENT exam: Present: normal exam, mucous membranes moist Neck exam: Present: normal inspection. Absent: tenderness, meningismus, lymph adenopathy Respiratory exam: Present: normal lung sounds bilaterally. Absent: respiratory distress, wheezes, rales, rhonchi, stridor Cardiovascular Exam: Present: regular rate, normal rhythm, normal heart sounds. Absent: systolic murmur, diastolic murmur, rubs, gallop, clicks GI/Abdominal exam: Present: soft, normal bowel sounds. Absent: distended, tenderness, guarding, rebound, rigid Extremities exam: Present: full ROM (Full range motion of the right third digit including the DIP, PIP, MCP without pain.), tenderness (There is tenderness over the site of infection however no tenderness noted over the flexor tendon.), normal capillary refill (Capillary refill less than 2 seconds of the right fourth digit), other (There is a small laceration noted to the finger pad of the right fourth finger. There is purulent discharge from this area and localized erythema. No streaking or spreading redness. No evidence of cellulitis at this time. ) Neurological exam: Present: alert, oriented X3, CN II-XII intact Psychiatric exam: Present: normal affect, normal mood Course Vital Signs 02/11/19 18:34 Temperature 98.3 F Pulse Rate 100 Respiratory 18 Rate Blood Pressure 101/63 O2 Sat by Pulse 98 Oximetry Medical Decision Making - Medical Decision Making 23-year-old female presents to the emergency department for a chief complaint of infected laceration site over the right fourth finger pad. This does have purulent material as well as some localized edema and erythema. No spreading or streaking redness, no evidence of tendon involvement. First stitch was removed in triage. I personally removed the second stitch without complications or difficulty.X-ray shows mild soft tissue swelling without fracture or evidence of osteomyelitis. No evidence of foreign body when reviewed. Patient was started on Keflex and Bactrim. Discussed strict return parameters including those for cellulitis or tendon involvement or lymphangitis. Discussed returning if she has any worsening symptoms of following up with primary care in 1-2 days for recheck. Disposition Clinical Impression: Infected finger laceration Disposition: HOME SELF-CARE Condition: Good Instructions (If sedation given, give patient instructions): Laceration (ED), Cellulitis (ED) Additional Instructions: Please take antibiotics as directed. Monitor for streaking or spreading redness or pain with bending the finger and return immediately if this occurs. Please follow-up with primary care in 1-2 days for recheck. Return to the emergency department if you have any worsening symptoms. Prescriptions: Sulfamethox-Tmp 800-160Mg [Bactrim DS 800-160 mg] 1 tab PO Q12HR #20 tab Cephalexin [Keflex] 500 mg PO Q6HR 10 Days cap Is patient prescribed a controlled substance at d/c from ED?: No Referrals: Andrew Loja DO [Primary Care Provider] - 1-2 days Time of Disposition: 19:10
--- NOTE | 2019-02-11 19:24 | XR ---
EXAMINATION TYPE: XR finger RT DATE OF EXAM: 02/11/2019 COMPARISON: NONE HISTORY: Infection TECHNIQUE: 3 views FINDINGS: There is soft tissue swelling at the end of the ring finger. I see no fracture nor dislocat ion. There is no focal bone destruction. IMPRESSION: Mild soft tissue swelling. No fracture. No evidence of osteomyelitis.
== END 2019-02-11 19:41 | disposition home or self-care (01) ==
LOC: EC 18:33
DX: T81.41XA Infection following a procedure, superficial incisional surgical site, initial encounter (principal); J45.909 Unspecified asthma, uncomplicated; Z87.891 Personal history of nicotine dependence; Z79.51 Long term (current) use of inhaled steroids; Z79.899 Other long term (current) drug therapy; Z91.048 Other nonmedicinal substance allergy status; Z91.010 Allergy to peanuts; Z91.018 Allergy to other foods
CPT/HCPCS: 99283

== ENCOUNTER → 2019-08-09 | Outpatient (CLI) | payer OTHER ==
[2019-08-09 17:27] LABS: Basophils # (A) 0.1 k/uL (0-0.2); Basophils % (A) 1 %; Eosinophils # (A) 0.2 k/uL (0-0.7); Eosinophils % (A) 3 %; HCT 44.5 % (34.0-46.0); HGB 13.7 gm/dL (11.4-16.0); Lymphocytes # (A) 2.3 k/uL (1.0-4.8); Lymphocytes % (A) 31 %; MCH 29.7 pg (25.0-35.0); MCHC 30.7 g/dL (31.0-37.0); MCV 96.5 fL (80.0-100.0); Mean Platelet Volume 8.9; Monocytes # (A) 0.2 k/uL (0-1.0); Monocytes % (A) 3 %; Neutrophils # (A) 4.3 k/uL (1.3-7.7); Neutrophils % (A) 60 %; Platelet Count 228 k/uL (150-450); RBC 4.61 m/uL (3.80-5.40); RDW 12.4 % (11.5-15.5); WBC 7.3 k/uL (3.8-10.6)
[2019-08-09 17:39] LABS: HCG,Qualitative Serum Not Detected
[2019-08-10 01:10] LABS: ALT 12 U/L (8-44); AST 17 U/L (13-35); African American GFR (CKD) 140.6 (60.0-200.0); Albumin/Globulin Ratio 2.29 (1.60-3.17); Alkaline Phosphatase 45 U/L (41-126); BUN/Creat Ratio 12.86 Ratio (12.00-20.00); Calcium 9.7 mg/dL (8.7-10.3); Carbon Dioxide 26.2 mmol/L (21.6-31.8); Chloride 109 mmol/L (96-109); Globulin 2.1 g/dL (1.6-3.3); Glucose 87 mg/dL (70-110); Potassium 4.3 mmol/L (3.5-5.5); Sodium 141 mmol/L (135-145); Total Bilirubin 0.4 mg/dL (0.3-1.2); Total Protein 6.9 g/dL (6.2-8.2)
[2019-08-10 02:36] LABS: HIV 1 AB Non-Reactive (Non-Reactive); HIV 2 AB Non-Reactive (Non-Reactive); HIV AB P24 Non-Reactive (Non-Reactive); HIV P24 AG Non-Reactive (Non-Reactive)
[2019-08-10 15:09] LABS: C. trachomatis,PCR Negative (Neg,Equiv); Chlamydia trachomatis Source Urine; N. gonorrhoeae,PCR Negative (Neg,Equiv); Neisseria Source Urine
== END ==
LOC: LABWHC1 16:11
PROVIDERS: ATTEND Family Medicine
DX: Z11.3 Encounter for screening for infections with a predominantly sexual mode of transmission (principal); R63.4 Abnormal weight loss
CPT/HCPCS: 36415; 80053; 81025; 84439; 84443; 84703; 85025; 86780; 87390; 87491; 87591

== ENCOUNTER 2020-08-28 16:45 | Inpatient (IN) | payer MEDICAID, OTHER ==
--- NOTE | 2020-08-28 18:03 | ED ---
Psych HPI - General Chief Complaint: Psychiatric Symptoms Stated Complaint: Mental Health Time Seen by Provider: 08/28/20 17:14 Source: patient, RN notes reviewed Mode of arrival: wheelchair - History of Present Illness Initial Comments: this is a 25-year-old female history depression and anxiety who is here today because she states her medications are not working. He states she's been on for quite a while she still feels depressed. Per her mother was present patient locked herself in a room has not been eating very well. His been shaking somewhat. Patient is a 3-year-old child concerned about the mother again taking care of the child. Place modifying factors she denies any drugs or MD Complaint: feels depressed - Related Data Home Medications Medication Instructions Recorded Confirmed Albuterol Sulfate [Proair Hfa] 2 puff INHALATION RT-QID PRN 04/15/16 08/28/20 Montelukast [Singulair] 10 mg PO HS 01/18/19 08/28/20 Escitalopram Oxalate [Lexapro] 15 mg PO DAILY 08/28/20 08/28/20 FLUoxetine HCL [PROzac] 20 mg PO DAILY 08/28/20 08/28/20 Allergies Allergy/AdvReac Type Severity Reaction Status Date / Time cat dander Allergy Unknown Verified 08/28/20 19:26 dandelion (Taraxacum Allergy Unknown Verified 08/28/20 19:26 officinale) dog dander Allergy Unknown Verified 08/28/20 19:26 grass pollen Allergy Unknown Verified 08/28/20 19:26 mold Allergy Unknown Verified 08/28/20 19:26 oak Allergy Unknown Verified 08/28/20 19:26 peanut Allergy Unknown Verified 08/28/20 19:26 peas Allergy Unknown Verified 08/28/20 19:26 DUST Allergy Unknown Uncoded 08/28/20 17:07 PINE TREES Allergy Unknown Uncoded 08/28/20 17:07 Review of Systems ROS Statement: Those systems with pertinent positive or pertinent negative responses have been documented in the HPI. ROS Other: All systems not noted in ROS Statement are negative. Past Medical History Past Medical History: Asthma Additional Past Medical History / Comment(s): allergies History of Any Multi-Drug Resistant Organisms: None Reported Past Surgical History: Section Past Anesthesia/Blood Transfusion Reactions: No Reported Reaction Past Psychological History: No Psychological Hx Reported Smoking Status: Current every day smoker Past Alcohol Use History: Occasional Past Drug Use History: Marijuana - Past Family History Mother Family Medical History: Asthma General Exam - General Exam Comments Initial Comments: this is a well-developed well-nourished awake alert oriented 3 female Limitations: no limitations General appearance: alert, in no apparent distress Head exam: Present: atraumatic, normocephalic, normal inspection Eye exam: Present: normal appearance, PERRL, EOMI. Absent: scleral icterus, conjunctival injection, periorbital swelling ENT exam: Present: normal exam, mucous membranes moist Neck exam: Present: normal inspection. Absent: tenderness, meningismus, lymphadenopathy Respiratory exam: Present: normal lung sounds bilaterally. Absent: respiratory distress, wheezes, rales, rhonchi, stridor Cardiovascular Exam: Present: regular rate, normal rhythm, normal heart sounds. Absent: systolic murmur, diastolic murmur, rubs, gallop, clicks GI/Abdominal exam: Present: soft, normal bowel sounds. Absent: distended, tenderness, guarding, rebound, rigid Extremities exam: Present: normal inspection, full ROM, normal capillary refill. Absent: tenderness, pedal edema, joint swelling, calf tenderness Back exam: Present: normal inspection Neurological exam: Present: alert, oriented X3, CN II-XII intact Psychiatric exam: Present: depressed, flat affect Skin exam: Present: warm, dry, intact, normal color. Absent: rash Course Vital Signs 08/28/20 17:02 Temperature 98.1 F Pulse Rate 106 H Respiratory 18 Rate Blood Pressure 130/86 O2 Sat by Pulse 100 Oximetry Medical Decision Making - Medical Decision Making The patient was evaluated by psychiatric service and will be admitted for inpatient treatment. - Lab Data Lab Results 08/28/20 08/28/20 Range/Units 18:43 18:43 Urine HCG, Qual Not Detected (Not Detectd) Urine Opiates Screen Not Detected (NotDetected) Ur Oxycodone Screen Not Detected (NotDetected) Urine Methadone Screen Not Detected (NotDetected) Ur Propoxyphene Screen Not Detected (NotDetected) Ur Barbiturates Screen Not Detected (NotDetected) U Tricyclic Antidepress Not Detected (NotDetected) Ur Phencyclidine Scrn Not Detected (NotDetected) Ur Amphetamines Screen Not Detected (NotDetected) U Methamphetamines Scrn Not Detected (NotDetected) U Benzodiazepines Scrn Not Detected (NotDetected) Urine Cocaine Screen Not Detected (NotDetected) U Marijuana (THC) Screen Detected H (NotDetected) Disposition Clinical Impression: Depression, Suicidal ideation Disposition: TRANSFER TO PSYCH HOSP/UNIT Condition: Stable
[2020-08-28 19:12] LABS: Amphetamine Screen,Urine Not Detected (NotDetected); Barbiturate Screen,Urine Not Detected (NotDetected); Benzodiazepines Screen,Urine Not Detected (NotDetected); Cocaine Screen,Urine Not Detected (NotDetected); Methadone Screen, Urine Not Detected (NotDetected); Opiate Screen,Urine Not Detected (NotDetected); Oxycodone Screen, Urine Not Detected (NotDetected); Phencyclidine Screen,Urine Not Detected (NotDetected); Tricyclic Antidepressant,Urine Not Detected (NotDetected); Urn Cannabinoid Scrn Detected (NotDetected)
[2020-08-28] MEDS ORDERED: MAGNESIUM HYDROXIDE 2,400 MG/10 ML CUP PO PRN (20:33)
[2020-08-28] MEDS: MONTELUKAST 10 MG TAB PO SCH (21:57)
[2020-08-28] MEDS: ZIPRASIDONE 20 MG VIAL IM PRN (22:26)
--- NOTE | 2020-08-29 01:02 | P.CONS ---
History of Present Illness - Reason for Consult Consult date: 08/29/20 - History of Present Illness Patient is a 25-year-old female with a PMH of mild intermittent asthma and tobacco abuse and depression who presented to the emergency room with complaints of ongoing depressive thoughts. The patient was seen in the mental health unit. She reports that despite taking her medications at home, she continues to feel depressed and wishes to change her medications. She reports smoking 2 packs of cigarettes per day. Denied any additional complaints. Denied any illicit drug use. Reports only social drinking. Denied chest pain, shortness of breath, palpitations, nausea, vomiting. Denied fever, chills, cough, abdominal pain, or diarrhea. Urine toxicology was positive for marijuana Review of Systems Pertinent positives and negatives as discussed in HPI, a complete review of systems was performed and all other systems are negative. Past Medical History Past Medical History: Asthma Additional Past Medical History / Comment(s): allergies History of Any Multi-Drug Resistant Organisms: None Reported Past Surgical History: Section Past Anesthesia/Blood Transfusion Reactions: No Reported Reaction Past Psychological History: No Psychological Hx Reported Smoking Status: Current every day smoker Past Alcohol Use History: Occasional Past Drug Use History: Marijuana - Past Family History Mother Family Medical History: Asthma Medications and Allergies Home Medications Medication Instructions Recorded Confirmed Type Albuterol Sulfate [Proair Hfa] 2 puff INHALATION RT-QID PRN 04/15/16 08/28/20 History Montelukast [Singulair] 10 mg PO HS 01/18/19 08/28/20 History Escitalopram Oxalate [Lexapro] 15 mg PO DAILY 08/28/20 08/28/20 History FLUoxetine HCL [PROzac] 20 mg PO DAILY 08/28/20 08/28/20 History Allergies Allergy/AdvReac Type Severity Reaction Status Date / Time cat dander Allergy Unknown Verified 08/28/20 19:26 dandelion (Taraxacum Allergy Unknown Verified 08/28/20 19:26 officinale) dog dander Allergy Unknown Verified 08/28/20 19:26 grass pollen Allergy Unknown Verified 08/28/20 19:26 mold Allergy Unknown Verified 08/28/20 19:26 oak Allergy Unknown Verified 08/28/20 19:26 peanut Allergy Unknown Verified 08/28/20 19:26 peas Allergy Unknown Verified 08/28/20 19:26 DUST Allergy Unknown Uncoded 08/28/20 17:07 PINE TREES Allergy Unknown Uncoded 08/28/20 17:07 Physical Exam Vitals: Vital Signs Temp Pulse Pulse Resp BP BP Pulse Ox 08/29/20 00:04 98.5 F 68 16 109/83 98 08/28/20 20:51 18 08/28/20 17:02 98.1 F 106 H 18 130/86 100 Intake and Output 08/28/20 08/28/20 08/29/20 14:59 22:59 06:59 Other: Weight 54.431 kg General: non toxic, no distress, appears at stated age, normal weight Derm: no unusual rashes/lesions no unusual ecchymoses, warm, dry Head: atraumatic, normocephalic, symmetric Eyes: EOMI, no lid lag, anicteric sclera, pupils equal round reactive to light ENT: Nose and ears atraumatic, no thrush, no pharyngeal erythema Neck: No thyromegaly, no cervical lymphadenopathy, trachea midline, supple Mouth: no lip lesion, mucus membranes moist Cardiovascular: S1S2 reg, no murmur, positive posterior tibial pulse bilateral, no edema, capillary refill less than 2 seconds Lungs: CTA bilateral, no rhonchi, no rales , no accessory muscle use Abdominal: soft, nontender to palpation, no guarding, no appreciable organomegaly, normal bowel sounds Ext: no gross muscle atrophy, muscle strength 5 out of 5 in all 4 extremities grossly, no contractures, Neuro: CN II-XI grossly intact, light touch intact all 4 extremities, finger to nose within normal limits, Psych: Alert, oriented, flat affect Results Labs: Abnormal Lab Results - Last 24 Hours (Table) 08/28/20 Range/Units 18:43 U Marijuana (THC) Screen Detected H (NotDetected) Assessment and Plan Plan: Tobacco and marijuana abuse -Advised strongly on the importance of cessation Mild intermittent asthma -Albuterol when necessary Depression -as per psychiatry Thank you for allowing us to participate in the care of this patient. We will follow peripherally. Do not hesitate to contact us with questions. Someone can be reached from the [facility] hospitalist group at all hours of the day at [phone].
[2020-08-29] MEDS ORDERED: FLUoxetine HCL 20 MG CAP PO SCH (09:00)
[2020-08-29 09:41] LABS: ALT 11 U/L (4-34); AST 21 U/L (14-36); African American GFR (CKD) >90 (>60 ml/min/1.73 sqM); Albumin 4.6 g/dL (3.5-5.0); Alkaline Phosphatase 48 U/L (38-126); Anion Gap 10 mmol/L; Blood Urea Nitrogen 12 mg/dL (7-17); Calcium 9.9 mg/dL (8.4-10.2); Carbon Dioxide 23 mmol/L (22-30); Chloride 107 mmol/L (98-107); Glucose 117 mg/dL (74-99); Non-African American GFR(CKD) >90 (>60 ml/min/1.73 sqM); Potassium 4.3 mmol/L (3.5-5.1); Sodium 140 mmol/L (137-145); Total Bilirubin 0.6 mg/dL (0.2-1.3); Total Protein 7.6 g/dL (6.3-8.2)
[2020-08-29 09:43] LABS: Basophils # (A) 0.1 k/uL (0-0.2); Basophils % (A) 1 %; Eosinophils # (A) 0.4 k/uL (0-0.7); Eosinophils % (A) 6 %; HCT 46.6 % (34.0-46.0); HGB 14.8 gm/dL (11.4-16.0); Lymphocytes # (A) 3.2 k/uL (1.0-4.8); Lymphocytes % (A) 48 %; MCH 30.4 pg (25.0-35.0); MCHC 31.8 g/dL (31.0-37.0); MCV 95.6 fL (80.0-100.0); Mean Platelet Volume 10.3; Monocytes # (A) 0.3 k/uL (0-1.0); Monocytes % (A) 5 %; Neutrophils # (A) 2.6 k/uL (1.3-7.7); Neutrophils % (A) 38 %; Platelet Count 188 k/uL (150-450); RBC 4.87 m/uL (3.80-5.40); RDW 12.7 % (11.5-15.5); WBC 6.8 k/uL (3.8-10.6)
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
[2020-08-29 11:52] LABS: Cholesterol 117 mg/dL (<200); HDL Cholesterol 33 mg/dL (40-60); LDL Cholesterol,Calculated 70 mg/dL (0-99); Triglycerides 69 mg/dL (<150)
[2020-08-29] MEDS: ZIPRASIDONE 20 MG VIAL IM PRN (15:11)
[2020-08-29] MEDS: LORazepam 2 MG/ML INJ IM PRN (15:13)
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
[2020-08-29 17:36] LABS: Hemoglobin A1C 4.9 % (4.0-6.0)
[2020-08-29] MEDS: MONTELUKAST 10 MG TAB PO SCH (20:45)
[2020-08-29] MEDS ORDERED: OLANZapine 2.5 MG TAB PO SCH (21:00)
[2020-08-29] MEDS ORDERED: HALOPERIDOL LACTATE 5 MG/ML 1 ML VIAL IM STA (21:51)
[2020-08-29] MEDS ORDERED: LORazepam 2 MG/ML INJ IM STA (21:51)
[2020-08-29] MEDS ORDERED: diphenhydrAMINE 50 MG/ML 1 ML VIAL IM STA (21:52)
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
[2020-08-30] MEDS: OLANZapine 5 MG TAB PO SCH ×2 (09:05→21:34)
[2020-08-30] MEDS: ESCITALOPRAM 10 MG TAB PO SCH (09:05)
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
[2020-08-30] MEDS: MONTELUKAST 10 MG TAB PO SCH (21:34)
[2020-08-31] MEDS: ESCITALOPRAM 10 MG TAB PO SCH (07:53)
[2020-08-31] MEDS: OLANZapine 5 MG TAB PO SCH (07:53)
[2020-08-31] MEDS: LORazepam 1 MG TAB PO PRN (12:01)
[2020-08-31] MEDS: NICOTINE 21MG/24HR PATCH TRANSDERM SCH (13:33)
[2020-08-31] MEDS ORDERED: LORazepam 1 MG TAB PO STA (16:31)
[2020-08-31] MEDS: OLANZapine 7.5 MG TAB PO SCH (21:04)
[2020-08-31] MEDS: MONTELUKAST 10 MG TAB PO SCH (21:04)
[2020-09-01] MEDS: NICOTINE 21MG/24HR PATCH TRANSDERM SCH ×2 (08:38→15:19)
[2020-09-01] MEDS: ESCITALOPRAM 10 MG TAB PO SCH (08:38)
[2020-09-01] MEDS: OLANZapine 5 MG TAB PO SCH (08:38)
[2020-09-01] MEDS: LORazepam 1 MG TAB PO PRN ×2 (08:38→16:34)
[2020-09-01] MEDS: ALBUTEROL HFA INHALER INHALATION PRN ×2 (09:49→16:35)
--- NOTE | 2020-09-01 13:06 | P.PN ---
Subjective Progress Note Date: 09/01/20 Principal diagnosis: DIAGNOSIS:Major depression recurrent with psychotic features SUBJECTIVE:"I'm here for medications" When I asked her if she had any questions, problems or requests she stared blankly at the table. She did admit to mild anticholinergic symptoms of dry mouth and dizziness but not blurred vision, constipation or trouble urinating. She says that she does feel less frightened OBJECTIVE: not done due to patients' anxiety Labs:nothing new STAFF REPORT:group report: she wandered in and out with blunted affect and very slow responses She seems confused and disoriented she is not insightful as to why she is here MENTAL STATUS: Appearance: basic ADL'S adequate Gait and station:normal Speech:soft slow and one word responses with frequent thought blocking Eye contact: none Behavior: cooperative Affect:flat No evidence or acknowlegment of voices or delusions Orientation: good to person place and time but not circumstance MEDICATIONS:lexapro 10 Zyprexa 5mg qam and 15 qhs started last night and she slept better and is slightly less anxious. Yesterday she would not come to my office, today she came and asked to be seen. ASSESSMENT:patient is cooperative and still too anxious and frightened and confused but not lethargic PLAN: no change Objective - Vital Signs Vital signs: Vital Signs Temp 98.4 F 08/31/20 18:13 Pulse 80 08/31/20 12:00 Resp 14 08/31/20 06:58 BP 120/70 08/31/20 12:00 Pulse Ox 97 08/29/20 21:55 Intake & Output 08/31/20 09/01/20 09/01/20 19:59 06:59 18:59 Weight 50.6 kg - Labs CBC & Chem 7: 08/29/20 08:42 08/29/20 08:42
[2020-09-01] MEDS: OLANZapine 7.5 MG TAB PO SCH (21:30)
[2020-09-01] MEDS: MONTELUKAST 10 MG TAB PO SCH (21:30)
[2020-09-02] MEDS: OLANZapine 5 MG TAB PO SCH (08:46)
[2020-09-02] MEDS: ESCITALOPRAM 10 MG TAB PO SCH (08:46)
[2020-09-02] MEDS: NICOTINE 21MG/24HR PATCH TRANSDERM SCH (08:46)
[2020-09-02] MEDS: ALBUTEROL HFA INHALER INHALATION PRN (08:51)
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
[2020-09-02] MEDS: LORazepam 1 MG TAB PO PRN (19:02)
[2020-09-02] MEDS: MONTELUKAST 10 MG TAB PO SCH (21:07)
[2020-09-02] MEDS: OLANZapine 7.5 MG TAB PO SCH (21:07)
[2020-09-03] MEDS: ESCITALOPRAM 10 MG TAB PO SCH (08:13)
[2020-09-03] MEDS: OLANZapine 5 MG TAB PO SCH (08:13)
[2020-09-03] MEDS: NICOTINE 21MG/24HR PATCH TRANSDERM SCH ×2 (08:14→21:05)
--- NOTE | 2020-09-03 11:26 | P.PN ---
Progress Note - Text Progress Note Date: 09/03/20 Clinical Problems: Unspecified psychotic disorder, rule out major depressive disorder with psychotic features, rule out schizoaffective disorder, rule out schizophrenia Interim history: I reviewed the medical record, interviewed the patient and discuss her treatment and treatment plan during team meeting. She remained suspicious, guarded and withdrawn. She intermittently attends therapeutic groups and activities. She has been compliant with both Lexapro and Zyprexa. Her father called yesterday and informed nursing staff that her fianc was positive for COVID when he came to the unit over the weekend. She denies symptoms of URI infection. Her temperatures have ranged from 97.9-99.3. Her rapid covert test was negative. Mental status exam: She presented as a short, thin and pale appearing female who had marked psychomotor slowing. She made eye contact and appeared to attend to the interview. She spoke little and had long pauses in response to questions. She appeared guarded but did not express delusional thoughts or beliefs. She showed poverty of thought and poverty of thought content. She did not appear to be responding to internal stimuli. Assessment: The differential diagnosis remains unchanged where her symptom picture milligrams related to a severe depression or nuances of a psychotic disorder. Plan: continue inpatient treatment. Ovtain COVID PCR. continue to monitor temperature every 6 hours. ontinue Lexapro 10 mg daily and Zyprexa 5 mg a.m. and 15 mg at bedtime. ncourage participation in therapeutic groups and activities. Evaluate clinical status response to treatment daily basis.
[2020-09-03] MEDS: ALBUTEROL HFA INHALER INHALATION PRN (11:27)
[2020-09-03] MEDS: ACETAMINOPHEN TAB 325 MG TAB PO PRN (16:50)
[2020-09-03] MEDS: LORazepam 1 MG TAB PO PRN (16:51)
[2020-09-03] MEDS: OLANZapine 7.5 MG TAB PO SCH (20:58)
[2020-09-03] MEDS: MONTELUKAST 10 MG TAB PO SCH (20:58)
[2020-09-04] MEDS: NICOTINE 21MG/24HR PATCH TRANSDERM SCH (08:18)
[2020-09-04] MEDS: ESCITALOPRAM 10 MG TAB PO SCH (08:18)
[2020-09-04] MEDS: OLANZapine 5 MG TAB PO SCH (08:23)
--- NOTE | 2020-09-04 11:12 | P.PN ---
Progress Note - Text Progress Note Date: 09/04/20 Clinical Problems: Unspecified psychotic disorder, rule out major depressive disorder with psychotic features, rule out schizoaffective disorder, rule out schizophrenia Interim history: I reviewed the medical record, interviewed the patient and discuss treatment and treatment plan during team meeting. I also spoke with his mother on the telephone. Her only concern was discharged and she came to my office with a paper bag filled with personal belongings and items such as random bits of paper and used styroform cups. She alleged that "nurse" told her that she can go home today. She did not appear to understand my explanation that we have petitioned the probate Court for involuntary hospitalization. She provided little information during the interview. She seldom answered questions using more than a single word or fragment of a sentence. Nursing reported that she hadn't been compliant with prescribed medications until this morning when she attempted to "cheek" the morning dose of olanzapine. She has a deferral for her probate hearing scheduled for 09/05/2020 Her mother stated that she was doing well until "a couple months ago". The changes that another noticed is that she was more angry. She was scaring less for her personal hygiene and was not maintaining her home. Her mother also complained that she was swearing more. Jennifer also began to refuse to allow her mother to come into her home. Her mother denied that she has had mental health problems in the past. Mental status exam: She presented as a short disheveled-appearing 25-year-old female with long dark unkept hair. She had marked psychomotor slowing. She showed about his speech and poverty of content of speech. She only uttered single words or fragments of sentences. Her affect was labile and she would fluctuate between laughing, smiling and crying. Her thinking was not organized, coherent or goal directed. She did not appear to be responding to internal stimuli. Assessment: She remains confused, labile and has no insight or understanding of her illness or need for treatment. She continues to require inpatient treatment due to the severity of her symptoms and inability to care for herself. Plan: Continue inpatient treatment. Probate hearing pending. Continue olanzapine 15 mg at bedtime and 5 mg in the morning. Continue Lexapro 10 mg daily. Continue to monitor for elopement. Encourage participation in therapeutic groups to activities. Evaluate clinical status response to treatment on a daily basis.
[2020-09-04] MEDS: MONTELUKAST 10 MG TAB PO SCH (19:39)
[2020-09-04] MEDS: OLANZapine 7.5 MG TAB PO SCH (19:40)
[2020-09-05] MEDS: NICOTINE 21MG/24HR PATCH TRANSDERM SCH (08:36)
[2020-09-05] MEDS: ESCITALOPRAM 10 MG TAB PO SCH (08:36)
[2020-09-05] MEDS: OLANZapine 5 MG TAB PO SCH ×2 (08:37→20:35)
[2020-09-05] MEDS: ALBUTEROL HFA INHALER INHALATION PRN ×2 (09:17→20:35)
--- NOTE | 2020-09-05 11:24 | P.PN ---
Progress Note - Text Progress Note Date: 09/05/20 Clinical Problems: Unspecified psychotic disorder, rule out schizoaffective disorder, rule out schizophrenia, rule out major depressive disorder with psychotic features Interim history: I reviewed the medical record, interviewed the patient and discussed her treatment and treatment plan during team meeting. She had a deferral hearing this morning and agreed to treatment. We discussed her noncompliance with prescribed antipsychotic medications. She complained of side effects to the 20 mg dose of Zyprexa. She agreed to comply with a lower dose of 5 mg twice a day. Her stepfather came to the unit unexpectedly yesterday because she called him and told him that we are discharging her. She remains preoccupied about discharge. She is unable to explain the reason for this hospitalization and is unable to explain the agitation and aggressive behavior she demonstrated when she first arrived on the unit. She acknowledged that she felt scared but could not or would not articulate her thoughts or feelings. According to medication record she would only take 7.5 mg of Zyprexa last night. She seldom attends therapeutic groups and activities. During the one activity groups yesterday she left after 30 minutes and demonstrated poor attention and focus. Mental status exam: She presented as a short frail-appearing young female with a thick dark hair. She made eye contact and attended to the interview. She had marked psychomotor slowing and poverty of speech and content of speech. She volunteers little information and her answers to questions were brief. She was anxious and guarded. She did not cry or laughed during this interview. She denied suicidal or homicidal ideation. She did not express clear ideas reference, paranoid ideation or delusions. His thinking was very concrete. Due to the poverty of speech was difficult to evaluate her thought process. She denied hallucinations and did not appear to be responding to internal stimuli. Assessment: She is less labile than on prior encounters but she continued to appear confused, anxious guarded and suspicious. Due to her unusual presentation I'm concerned that her condition may be related more to a psychotic disorder and a mood disorder. Plan: Continue inpatient treatment. Safety precautions. Decrease Zyprexa to 5 mg twice a day. Continue Lexapro 10 mg daily. Encourage participation in therapeutic groups and activities. Evaluate clinical status response to treatment daily basis.
[2020-09-05] MEDS: ACETAMINOPHEN TAB 325 MG TAB PO PRN (15:42)
[2020-09-05] MEDS: MONTELUKAST 10 MG TAB PO SCH (20:35)
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
[2020-09-06] MEDS: ACETAMINOPHEN TAB 325 MG TAB PO PRN ×4 (00:46→22:36)
[2020-09-06] MEDS: ESCITALOPRAM 10 MG TAB PO SCH (09:21)
[2020-09-06] MEDS: OLANZapine 5 MG TAB PO SCH ×2 (09:21→20:47)
[2020-09-06] MEDS: NICOTINE 21MG/24HR PATCH TRANSDERM SCH (09:22)
--- NOTE | 2020-09-06 11:22 | P.PN ---
Progress Note - Text Progress Note Date: 09/06/20 Clinical Problems: Unspecified psychotic disorder, rule out schizoaffective disorder, rule out schizophrenia, rule out major depressive disorder with psychotic features Interim history: I reviewed the medical record, interviewed the patient and discuss her treatment and treatment plan during team meeting. She was withdrawn and childlike today. She refused to get out of bed for the interview. She pulled her blanket up covering her mouth. She answered questions with single words or nodding her head. Her only concern was "going home." She denied side effects to the 5 mg dose of Zyprexa. Treatment staff report that she is childlike during group where she has a need to hug staff and other patients. Staff express concern that her psychosis may be related to to use kratom. Mental status exam: She presented as a short disheveled appearing and pale young female She made eye contact and appeared to attend to interview. She has marked psychomotor slowing and long delays when answering questions. She had a blunted facial expression. Her speech was not spontaneous and had decreased rate, rhythm and volume. Her affect was guarded She did not express suicidal ideation or wishes. She denied depressed clear ideas reference, paranoid ideation or delusions. Her thinking was concrete but her associations appeared goal directed. She did not appear to be responding to internal stimuli. Assessment: She is minimally improve from admission and continues to have poor personal hygiene, marked psychomotor retardation and poor insight. Treatment staff questioning whether her presentation was related to the use of drugs not measured by our standard drug screen. I suspect that her presentation is related to a new onset schizophrenia. Plan: Continue inpatient treatment. Continue seeing precautions. Continue olanzapine 5 mg twice a day. Continue inquire about use of drugs prior to admission. Encourage participation in therapeutic groups and activities. Evaluate clinical status response to treatment on a daily basis.
[2020-09-06 12:55] VITALS: BMI 22.5
[2020-09-06] MEDS: MONTELUKAST 10 MG TAB PO SCH (20:47)
[2020-09-07] MEDS: NICOTINE 21MG/24HR PATCH TRANSDERM SCH (09:09)
[2020-09-07] MEDS: ESCITALOPRAM 10 MG TAB PO SCH (09:09)
[2020-09-07] MEDS: OLANZapine 5 MG TAB PO SCH ×2 (09:10→21:12)
[2020-09-07] MEDS: ACETAMINOPHEN TAB 325 MG TAB PO PRN ×2 (12:35→15:57)
--- NOTE | 2020-09-07 17:02 | PN ---
PROGRESS NOTE DATE OF SERVICE: 09/07/2020 CHIEF COMPLAINT: The patient was still anxious and depressed and feeling overwhelmed. She had suicidal thinking. INTERVAL HISTORY: Patient has been doing fair. She continues with disorganized behavior and thoughts. Yesterday she was out on the unit. She wandered about. She did not attend groups. She would withdrawal at times and choose not to communicate. She slept well last night. Today she has been up. Overall, she has been doing the same. She comes out in the day area. Communication is intermittent. Sometimes she will make disorganized statements. Her main focus is on discharge. When I saw her today initially she declined coming into the office. When I approached her in the jimenez, she said her only concern was the papers that she had, which said she is ready to be discharged. She asked me when she would be discharged. I told her she would not be discharged this weekend and she essentially ended the conversation. Over the next half hour she came to the office door or came into the office 4 or 5 times asking various questions mostly around the idea of discharge. She would respond when ending the conversation. She would leave the office without any hesitation or reluctance, only to come back to the office a few minutes later. Her mood was a little dysphoric relating to the idea that she would not be discharged this weekend. She appears to tolerate her psychotropic medications. MENTAL STATUS: Patient gave fairly good eye contact. At times she had a staring gaze. She did not really answer questions directly, though made repeated comments about discharge. Her affect was intense at times and calmer at other times. Her mood was dysphoric though she could present in a calm manner. She was distressed about being on the unit. Her thoughts continued to be disorganized. She voiced no thoughts of harm. It was difficult to assess for level of orientation, though she was aware of her circumstances and surroundings. ASSESSMENT: I will continue the current diagnosis and treatment plan. I will increase Zyprexa to 10 mg twice a day. It is noted that Dr. James had reduced Zyprexa due to her apparent complaint of side effects, though it is not clear what her specific concerns were. The patient continues to show significant signs of disordered thinking. We will focus on stabilization and discharge planning. MMODL / IJN: [id number] / SHIELA
[2020-09-07] MEDS: MONTELUKAST 10 MG TAB PO SCH (21:12)
[2020-09-07] MEDS: ZIPRASIDONE 20 MG VIAL IM PRN (21:27)
[2020-09-08] MEDS: NICOTINE 21MG/24HR PATCH TRANSDERM SCH (09:15)
[2020-09-08] MEDS: OLANZapine 5 MG TAB PO SCH ×2 (09:15→21:43)
[2020-09-08] MEDS: ESCITALOPRAM 10 MG TAB PO SCH (09:15)
[2020-09-08] MEDS: ACETAMINOPHEN TAB 325 MG TAB PO PRN ×2 (12:33→19:50)
[2020-09-08] MEDS: MONTELUKAST 10 MG TAB PO SCH (21:42)
--- NOTE | 2020-09-09 02:41 | PN ---
PROGRESS NOTE DATE OF SERVICE: 09/08/2020. CHIEF COMPLAINT: The patient was still anxious, depressed and feeling overwhelmed. She had suicidal thinking. INTERVAL HISTORY: The patient continues to remain about the same. She had a quiet day yesterday. She comes out on the unit. She wanders about. 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 She will engage with peers. As far as her interactions with staff, she will insist on the idea that she needs to be discharged "today." She carries her petition papers and believes that is her pathway to be discharged believing the papers say she can be discharged "today." She slept well last night. Today she has been up. She continues to wander. She did attend two groups today. She tends to show some regressive behavior in groups. Overall she seems to have a little quieter manner today compared to yesterday. She seems to be a little less insistent on the idea of needing to leave the hospital immediately. She had no specific complaint or concern when I made efforts to talk with her on the other hand she did not voice any complaints, concerns, questions or issues. For the most part she was more avoidant than anything else of engaging in any kind of conversation. She appears to tolerate her psychotropic medications. MENTAL STATUS: Patient mostly was in the jimenez. I saw her at several different times in the day. I asked her at each time if she would like to come into the office and go through some issues, though she declined. I made efforts to talk to her in the jimenez and asked various questions though she did not engage much in any conversation. Her affect was a little constricted. Overall, she seemed to have a quieter manner today and was less intense about the idea of discharge. Her mood was dysphoric. She seemed somewhat distressed. She continues to show disordered thoughts and behavior. She voiced no thoughts of harm. She was oriented to circumstances and surroundings. ASSESSMENT: I will continue the current diagnosis and treatment plan. I will increase Zyprexa to 5 mg twice a day at 0900 and 1400 hours along with Zyprexa 15 mg at bedtime. The patient continues to show significant thought disorder. It is unclear that she had specific side effects related to the Zyprexa, even though she had made those comments. I attempted to clarify with the patient what concerns she had about her medications. I was not able to get any reliable information. She clearly needs to be on a more therapeutic dose of her antipsychotic. We will focus on stabilization and discharge planning. ELIAZAR / FRANCESCO: [id number] /
[2020-09-09] MEDS: OLANZapine 5 MG TAB PO SCH ×3 (08:40→21:38)
[2020-09-09] MEDS: ESCITALOPRAM 10 MG TAB PO SCH (08:40)
[2020-09-09] MEDS: NICOTINE 21MG/24HR PATCH TRANSDERM SCH (08:40)
[2020-09-09] MEDS ORDERED: OLANZapine 7.5 MG TAB PO SCH (09:00)
--- NOTE | 2020-09-09 11:23 | P.PN ---
Progress Note - Text Progress Note Date: 09/09/20 Clinical Problems: Unspecified psychotic disorder, rule out schizoaffective disorder, rule out schizophrenia, rule out major depressive disorder with psychotic features Interim history: I reviewed the medical record, interviewed the patient and discussed her treatment and treatment plan during team meeting. She complained of depressed and anxious. Her only other concerns was discharge. I attempted to engage in a conversation about the circumstances that led to this hospitalization and the episodes of agitation that resulted in the seclusion or restraint she first arrived on the unit. She was more conversant than on prior interviews. She stated that her mother wanted him hospital because she wasn't doing well. She remembers feeling lonely and depressed. She has limited recollection of the events that transpired when she first arrived on the unit. The covering psychiatrist increased her olanzapine from 10 mg daily to 25 mg daily over the weekend. She denied side effects to the increased dose and remarked that her mood has improved with the increased dose. She denied experie ncing auditory, visual or olfactory hallucinations. She denied experiencing ideas reference, thought insertion, thought broadcasting or thought control. Mental status exam: She presented as a short frail-appearing female who looked her stated age. She was dressed in casual clothes. She made eye contact contact and mostly appeared to be responding to internal stimuli. She had one episode where she became internally preoccupied. Her speech was spontaneous, soft with decreased rate and rhythm. Unlike prior encounters, she spoke in full sentences. Her affect was depressed and not reactive. She did not express suicidal ideation or wishes. She was not paranoid, guarded or suspicious. Her thinking was concrete but her associations appeared goal directed. She demonstrated occasional thought blocking and impairment in attention. I was uncertain whether she was experiencing auditory hallucinations during the brief period where she became internally preoccupied. As mentioned above, she denied experiencing auditory hallucinations. Assessment: She appears moderately improved from admission with decreased confusion and improve verbal expression. She appears depressed and withdrawn. She has no insight or understanding of her illness but is accepting of treatment. Plan: Continue inpatient treatment. She deferred the probate hearing last week. Continue current dose of Zyprexa. Discontinue Lexapro and begin a trial of Effexor for the treatment for depression and depressive symptoms. Encouraged continued participation in therapeutic groups and activities. Evaluate clinical status response to treatment daily basis.
[2020-09-09] MEDS: ACETAMINOPHEN TAB 325 MG TAB PO PRN (17:40)
[2020-09-09] MEDS: MAG HYDROX/AL HYDROX/SIMETH 30 ML CUP PO PRN (17:40)
[2020-09-09] MEDS: ZIPRASIDONE 20 MG VIAL IM PRN (19:57)
[2020-09-09] MEDS: LORazepam 2 MG/ML INJ IM PRN (19:58)
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
[2020-09-09] MEDS: MONTELUKAST 10 MG TAB PO SCH (21:39)
[2020-09-10] MEDS: ACETAMINOPHEN TAB 325 MG TAB PO PRN ×4 (09:21→23:11)
[2020-09-10] MEDS: NICOTINE 21MG/24HR PATCH TRANSDERM SCH (09:21)
[2020-09-10] MEDS: VENLAFAXINE HCL ER 37.5 MG CAP PO SCH (09:21)
[2020-09-10] MEDS: OLANZapine 5 MG TAB PO SCH ×3 (09:22→21:48)
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
[2020-09-10] MEDS: MONTELUKAST 10 MG TAB PO SCH (21:48)
[2020-09-11] MEDS: NICOTINE 21MG/24HR PATCH TRANSDERM SCH (08:58)
[2020-09-11] MEDS: OLANZapine 5 MG TAB PO SCH ×3 (08:59→21:18)
[2020-09-11] MEDS: VENLAFAXINE HCL ER 37.5 MG CAP PO SCH (08:59)
[2020-09-11] MEDS: ACETAMINOPHEN TAB 325 MG TAB PO PRN ×4 (09:19→21:17)
--- NOTE | 2020-09-11 12:09 | P.PN ---
Progress Note - Text Progress Note Date: 09/11/20 Clinical Problems: Unspecified psychotic disorder, rule out schizoaffective disorder, rule out schizophrenia, rule out major depressive disorder with psychotic features Interim history: I reviewed the medical record, interviewed the patient and discussed her treatment and treatment plan during team meeting. She denied problems or concerns alleged that she is feeling "well". She admitted to having a "vague" recollection of the episode of seclusion and restraint but appeared unwilling to discuss her memory. Other than feeling "frustrated" she was unable to explain the reason for having become agitated and aggressive. She intermittently attends therapeutic groups and activities. She slept 4 hours last night. She's been complaining of a headache and has received when necessary doses of Tylenol. Mental status exam: She was casually groomed and pleasant on approach. She made eye contact and attended the interview. Her voice was soft but understandable. She spoke in full sentences and appeared more willing to engage in a conversation. She continues to show moderate psychomotor retardation but did not have long positives in response to questions.. She denied suicidal ideation, wishes or homicidal ideation. She did not express ideas reference, paranoid ideation or delusions. She did not appear paranoid or guarded. Her thinking was concrete. Her thinking was slow but not disorganized. She denied hallucinations and did not appear to responding to internal stimuli. Assessment: She has no insight or understanding. Her mental illness but is cooperating with treatment.. She continues to have signs and symptoms of psychosis with psychomotor source following, thought blocking and concrete thinking. Plan: Continue inpatient treatment. Continue Zyprexa 5 mg twice a day and 50 mg at bedtime. Continue Effexor with titration to a therapeutic dose. Continue Ativan and/or Geodon for agitation or aggression. Encourage participation in therapeutic groups and activities. Evaluate clinical status response to treatment daily basis.
[2020-09-11] MEDS: LORazepam 1 MG TAB PO PRN (16:56)
[2020-09-11] MEDS: MONTELUKAST 10 MG TAB PO SCH (21:17)
[2020-09-12] MEDS: LORazepam 1 MG TAB PO PRN ×2 (00:39→16:06)
[2020-09-12] MEDS: NICOTINE 21MG/24HR PATCH TRANSDERM SCH (09:06)
[2020-09-12] MEDS: VENLAFAXINE HCL ER 75 MG CAP PO SCH (09:06)
[2020-09-12] MEDS: OLANZapine 5 MG TAB PO SCH (09:06)
--- NOTE | 2020-09-12 11:32 | P.PN ---
Progress Note - Text Progress Note Date: 09/12/20 Clinical Problems: Unspecified psychotic disorder, rule out schizoaffective disorder, rule out schizophrenia, rule out major depressive disorder with psychotic features Interim history: I reviewed the medical record, interviewed the patient and discussed her treatment and treatment plan during team meeting. She complained of feeling anxious and tired during the daytime. He was difficult to engage in conversation and she appeared to have difficulty expressing herself. She attributed her increased anxiety to her worries about life. She was unable to identify a particular issue, stress or concern that is contributing to increased anxiety. She alleges she was unable to sleep last night because of her anxiety (according to the nurses report she slept 1 hour last night). She received a note 1 mg dose of Ativan this morning for insomnia. She described feeling increasingly tired and sedated after taking the daytime dose of olanzapine. We discussed treatment options and agreed to modify the dosing so she is only taking 1 in the morning and the majority dose at nighttime. Mental status exam: She was pleasant on approach. She appeared more Judson than on prior encounters. She made eye contact and appeared to attended the interview. Her voice was soft but understandable. She spoke in full sentences and appeared more willing to engage in a conversation. She continues to show moderate psychomotor retardation but did not have long positives in response to questions. She denied suicidal ideation, wishes or homicidal ideation. She did not express ideas reference, paranoid ideation or delusions. She did not appear paranoid or guarded. Her thinking was concrete and slow but not disorganized. She denied hallucinations and did not appear to responding to internal stimuli. Assessment: She has no insight or understanding into her mental illness but has been cooperative with treatment. The daytime sedation is likely due to the daytime dosing of olanzapine. She continues to have signs and symptoms of psychosis with psychomotor source following, thought blocking and concrete thinking. Plan: Continue inpatient treatment. Change Zyprexa to 5 mg morning and 20 mg at bedtime. Hold titration of Effexor to 75 mg daily. Continue Ativan and/or Geodon for agitation or aggression. Encourage participation in therapeutic groups and activities. Evaluate clinical status response to treatment daily basis.
[2020-09-12] MEDS: ACETAMINOPHEN TAB 325 MG TAB PO PRN ×2 (13:44→17:41)
[2020-09-12] MEDS: MONTELUKAST 10 MG TAB PO SCH (20:58)
[2020-09-12] MEDS ORDERED: OLANZapine 10 MG TAB PO SCH (21:00)
[2020-09-13] MEDS: NICOTINE 21MG/24HR PATCH TRANSDERM SCH (08:58)
[2020-09-13] MEDS: VENLAFAXINE HCL ER 75 MG CAP PO SCH (08:58)
[2020-09-13] MEDS ORDERED: OLANZapine 5 MG TAB PO SCH (09:00)
[2020-09-13] MEDS: ACETAMINOPHEN TAB 325 MG TAB PO PRN ×3 (10:35→21:11)
--- NOTE | 2020-09-13 12:10 | P.PN ---
Progress Note - Text Progress Note Date: 09/13/20 Clinical Problems: Unspecified psychotic disorder, rule out schizoaffective disorder, rule out schizophrenia, rule out major depressive disorder with psychotic features Interim history: I reviewed the medical record, interviewed the patient and discussed her treatment and treatment plan during team meeting. Her only concern was discharge and she became tearful when I would not agree to discharge her today. I told her that she appears to be doing better but we are concerned that she is not sleeping very much at night. She complained that she has difficulty sleeping because she is "anxious". When asked her what she was anxious about she replied "being in the hospital." We discussed her discharge and discharge plan during team meeting. health worker was unable to proceed with discharge planning because Jennifer has so far refused to sign a release of information to allow the hospital social worker to speak with her mother. She slept 4 hours last night. According to nursing, she is not napping during the day. She intermittently attends therapeutic groups and activities. She requested Ativan twice for complaints of subjective anxiety. The hospital social worker and I met with her regarding discharge and discharge planning. She signed a release of information for the hospital social worker to speak with her mother. The hospital social worker also spoke to her biological father. Apparently she called her father last night and told him that she has her "paperwork" and requested that a pick her up. Her father also expressed concern about compliance. Mental status exam: She was pleasant on approach, made eye contact and appeared to attend to the interview. Her voice was soft but understandable. She spoke in full sentences and appeared more willing to engage in a conversation. She continues to show moderate psychomotor retardation but did not have long positives in response to questions. She was occasionally tearful during the interview. She complained of subjective anxiety but did not appear tense, nervous or restless. She denied suicidal ideation, wishes or homicidal ideation. She did not express ideas reference, paranoid ideation or delusions. She did not appear paranoid or guarded. Her thinking was concrete and slow but not disorganized. She denied hallucinations and did not appear to responding to internal stimuli. Assessment: She has no insight or understanding into her mental illness but has been cooperative with treatment. I agree with her father's concerned that she will not be compliant with oral medications once she is discharged. She continues to have signs and symptoms of psychosis with psychomotor source following, thought blocking and concrete thinking. Plan: Continue inpatient treatment. Reduce Ativan by mouth 2.5 mg 3 times a day when necessary for anxiety. Begin Abilify 10mg daily with a plan to transition to Maintenna prior to discharge. Taper then discontinue olanzapine. Continue Ativan and/or Geodon for agitation or aggression. Encourage participation in therapeutic groups and activities. Evaluate clinical status response to treatment daily basis.
[2020-09-13] MEDS: MONTELUKAST 10 MG TAB PO SCH (20:08)
[2020-09-13] MEDS: LORazepam 0.5 MG TAB PO PRN (21:11)
[2020-09-13] MEDS: ALBUTEROL HFA INHALER INHALATION PRN (23:07)
[2020-09-14] MEDS: NICOTINE 21MG/24HR PATCH TRANSDERM SCH (09:38)
[2020-09-14] MEDS: OLANZapine 5 MG TAB PO SCH (09:39)
[2020-09-14] MEDS: ACETAMINOPHEN TAB 325 MG TAB PO PRN (09:39)
[2020-09-14] MEDS: VENLAFAXINE HCL ER 75 MG CAP PO SCH (09:39)
[2020-09-14] MEDS: ARIPiprazole 10 MG TAB PO SCH (09:39)
--- NOTE | 2020-09-14 10:18 | P.PN ---
Progress Note - Text Progress Note Date: 09/14/20 Interval history: Patient was seen resting in bed and was agreeable to speak with group underwriter in her room with no one also present. Patient is reporting that she is doing well. She is not reporting any auditory or visualizations. She denies any paranoia or delusions. She reports no delusions of thought insertion, thought projection, or ideas of reference. She has been adherent with her medications is not reporting any significant side effects at this time. She is not reporting any suicidal or homicidal ideation, intention, and/or plan. She reports that she has been eating well and sleeping well. She did receive Ativan 1 time dose last night for elevated anxiety which was effective. Mental status exam: General Appearance: Patient appears to be stated age is alert, directable, and cooperative. Behavior: No agitated behavior. Patient is calm and directable Speech: Patient's speech is nonspontaneous but fluent and nonpressured. Mood/Affect: Mood is "doing okay", affect is congruent and constricted. Suicidality/Homicidality: Patient denies having any suicidal or homicidal ideation intent or plan. Perceptions: Patient denies any auditory or visual hallucinations. Though content/process: There is no evidence of any delusional thought content and thought process is linear and goal-directed. Memory and concentration: AOX3, grossly intact for the purposes of this session Judgment and insight: improving mildly Assessment/Plan: Continue with current diagnosis. Patient continues to meet criteria for inpatient psychiatric admission for symptom stabilization and safety.Patient will be maintained on current psychotropic medication regimen. Monitor for medication compliance and for any psychotropic medication side effects. Will continue to monitor ongoing response to treatment. Encouraged participation in milieu.
[2020-09-14] MEDS: MAG HYDROX/AL HYDROX/SIMETH 30 ML CUP PO PRN (16:40)
[2020-09-14] MEDS: MONTELUKAST 10 MG TAB PO SCH (21:37)
[2020-09-14] MEDS ORDERED: SODIUM CHLORIDE 0.9% 1,000 ML IV ONE (22:33)
[2020-09-15] MEDS: NICOTINE 21MG/24HR PATCH TRANSDERM SCH ×2 (08:46→10:55)
[2020-09-15] MEDS: ARIPiprazole 10 MG TAB PO SCH (08:46)
[2020-09-15] MEDS: VENLAFAXINE HCL ER 75 MG CAP PO SCH (08:46)
[2020-09-15] MEDS: OLANZapine 5 MG TAB PO SCH (08:56)
--- NOTE | 2020-09-15 09:04 | P.PN ---
Progress Note - Text Progress Note Date: 09/15/20 Interval history: Patient was seen resting wandering the halls and was agreeable to speak with the blog writer in the office. Patient is reporting that she is doing well. She is not reporting any auditory or visualizations. She denies any paranoia or delusions. She reports no delusions of thought insertion, thought projection, or ideas of reference. She has been adherent with her medications but reports an episode of emesis last night. The patient also received 1 bolus of normal saline at 2230 on 09/14/2020 over 1 hour due to feeling dizzy and nauseated. She reports that she is feeling better today. She is not reporting any suicidal or homicidal ideation, intention, and/or plan. She reports that she has been eating well and sleeping well. Patient's blood pressure has been also noted to be hypotensive with blood pressure around 84/58. Mental status exam: General Appearance: Patient appears to be stated age is alert, directable, and cooperative. Behavior: No agitated behavior. Patient is calm and directable Speech: Patient's speech is nonspontaneous but fluent and nonpressured. Mood/Affect: Mood is "doing okay", affect is congruent and constricted. Suicidality/Homicidality: Patient denies having any suicidal or homicidal ideation intent or plan. Perceptions: Patient denies any auditory or visual hallucinations. Though content/process: There is no evidence of any delusional thought content and thought process is linear and goal-directed. Memory and concentration: AOX3, grossly intact for the purposes of this session Judgment and insight: improving mildly Assessment/Plan: Continue with current diagnosis. Patient continues to meet joe calix for inpatient psychiatric admission for symptom stabilization and safety. Patient will be maintained on current psychotropic medication regimen. We will hold morning and evening dose of Zyprexa today. Monitor for medication compliance and for any psychotropic medication side effects. Will continue to monitor ongoing response to treatment. Encouraged participation in milieu.
[2020-09-15] MEDS: ACETAMINOPHEN TAB 325 MG TAB PO PRN ×2 (13:02→17:03)
[2020-09-15] MEDS: MONTELUKAST 10 MG TAB PO SCH (20:57)
[2020-09-16] MEDS: ARIPiprazole 10 MG TAB PO SCH ×2 (08:50→09:52)
[2020-09-16] MEDS: NICOTINE 21MG/24HR PATCH TRANSDERM SCH (08:50)
[2020-09-16] MEDS: VENLAFAXINE HCL ER 75 MG CAP PO SCH (08:50)
[2020-09-16] MEDS ORDERED: OLANZapine 10 MG TAB PO SCH (09:00)
[2020-09-16] MEDS: ACETAMINOPHEN TAB 325 MG TAB PO PRN ×3 (10:36→21:10)
[2020-09-16] MEDS ORDERED: ARIPiprazole IM 400 MG VIAL (NO COST) PHARMACY STOCK IM SCH (11:15)
[2020-09-16] MEDS ORDERED: ARIPiprazole IM SYRINGE 400 MG (NO CHARGE) PHARMACY STOCK IM SCH (11:30)
--- NOTE | 2020-09-16 12:07 | P.PN ---
Progress Note - Text Progress Note Date: 09/16/20 Clinical Problems: Unspecified psychotic disorder, rule out schizoaffective disorder, rule out schizophrenia, rule out major depressive disorder with psychotic features Interim history: I reviewed the medical record, interviewed the patient and discussed her treatment and treatment plan during team meeting. Yesterday evening she experienced dizziness and nausea. The accounting consultant rn allergy recommended a bolus of 100 mL of normal saline. After the bolus she reported feeling absence of nausea. This morning she complained of lightheadedness and her blood pressure was 94/52. She refused the 10 mg doses Zyprexa but took the 10 mg dose of Abilify. Her last episodes of behavioral dyscontrol was 09/09/2020. The long term care social worker spoke with her mother after the patient signed a release. Her mother is concerned about the welfare of Jennifer's child and whether Jennifer will have an apartment to return to after she is discharged. Her biological father told the long term care social worker that he is pursuing guardianship. Jennifer's only concern was discharge. She denied other problems or concerns. She agreed to start Abilify Maintena Mental status exam: She presented as a disheveled, short and pale appearing 25-year-old female. She was pleasant on approach, made eye contact and appeared to attend to the interview. Her voice was soft but understandable. She spoke in full sentences and appeared more willing to engage in a conversation. Her affect was dysphoric. She denied suicidal ideation, wishes or homicidal ideation. She did not express ideas reference, paranoid ideation or delusions. She did not appear paranoid or guarded. Her thinking was concrete and slow but not disorganized. She denied hallucinations and did not appear to responding to internal stimuli. Assessment: Her overall clinical condition has improved from admission. She is most likely experiencing hypotension from receiving 2 antipsychotics-Zyprexa and Abilify. Plan: Work towards discharge either for tomorrow or nightly on Wednesday. Discontinue Zyprexa due to hypotension. Continue Abilify 10 mg daily. Begin Abilify Maintena 400 mg IM monthly. Continue Ativan and/or Geodon for agitation or aggression. Encourage participation in therapeutic groups and activities. Evaluate clinical status response to treatment daily basis.
[2020-09-16] MEDS: MONTELUKAST 10 MG TAB PO SCH (21:11)
[2020-09-16] MEDS: ALBUTEROL HFA INHALER INHALATION PRN (21:31)
[2020-09-16] MEDS: LORazepam 0.5 MG TAB PO PRN (23:13)
[2020-09-17 02:40] VITALS: BP 110/76; PULSE 92; RESP 17
[2020-09-17] MEDS: LORazepam 0.5 MG TAB PO PRN (02:55)
[2020-09-17] MEDS: ACETAMINOPHEN TAB 325 MG TAB PO PRN ×2 (03:00→09:24)
[2020-09-17] MEDS: NICOTINE 21MG/24HR PATCH TRANSDERM SCH (08:55)
[2020-09-17] MEDS: VENLAFAXINE HCL ER 75 MG CAP PO SCH (08:55)
[2020-09-17] MEDS: ARIPiprazole 10 MG TAB PO SCH (08:55)
--- NOTE | 2020-09-17 11:52 | P.DS ---
Providers Date of admission: 08/28/20 20:31 Attending physician: Ashkan James MD Consults: 08/28/20 20:33 Consult Physician Routine Consulting Provider: Indira Lucas Consult Reason/Comments: medical management Do you want consulting provider notified?: Yes Primary care physician: Andrew Loja - Alexei Diagnosis(es) (1) Unspecified psychosis Current Visit: Yes Status: Acute Priority: High (2) Involuntary commitment Current Visit: Yes Status: Acute Priority: Medium (3) Developmental disability Current Visit: Yes Status: Chronic Priority: Low Hospital Course: HISTORY: She is a 25-year-old single female initially admitted to the psychiatric unit voluntarily with increasing depression and anxiety in the context of multiple psychosocial stressors. However after admission she demanded to leave the hospital and became increasing agitated and aggressive to where she required IM injections of psychotropic medications and seclusion or restraint. Following the episode of agitation, aggression, seclusion or restraint Dr. Michele initiated the involuntary admission process. On admission to unit she expressed feelings of hopelessness and helplessness as well as suicidal ideation without a specific plan. The psychosocial stressors include possible unemployment and possible loss of her apartment. She is struggling financially and had difficulty finding work during dependent. She verbalizes issues of paranoia and suspiciousness talked about not being able to trust people. Her history is significant for a learning disability and special education HOSPITAL COURSE: We initially admitted her to the unit involuntarily but due to the aggression and agitation were initiated involuntary process. She deferred the probate hearing and compliant with treatment. She had 3 episodes of seclusion or restraint during this hospitalization; the last was on September 09. She spent much of her time on the unit alone seldom interacting with staff or peers. She attended therapeutic groups and activities intermittently. We treated her agitation and confusion with increasing dose of olanzapine up to 30 mg per day. After the director social welfare spoke with the father we determined that she would not comply with oral medications and changed her antipsychotic from olanzapine to Abilify. She received the first injection of Abilify Maintena 40 mg on 09/16/2020. Her mood gradually improved but she continued to demonstrate poor insight or understanding of her hospitalization or the reasons for the episodes of seclusion and restraint. During his hospitalizations her parents petitioned for guardianship of her daughter and her father is considering applying for guardianship of her. MENTAL STATUS ON DISCHARGE: At time of discharge she presented short pale appearing young female with slightly disheveled hair. She made eye contact and attended to the interview. She had a bright facial expression and smiled during the encounter. Her speech was not spontaneous and was soft with low volume. Affect was bright and stable. She denied suicidal ideation or wishes. She denied homicidal ideation. She denied feeling hopeless, helpless or worthless. She ruminated about discharge, return to her apartment and taking care of her daughter. She did not express ideas reference, paranoid ideation or delusions. Her thinking was concrete but her associations were goal-directed. She denied hallucinations and did not appear to be responding to internal stimuli. DISPOSITION: She'll discharge to our department with follow-up from [facility]. Her discharge medications include Effexor XL or 75 mg daily, Abilify 10 mg daily (14 day supply) and Abilify Mainena a 400 mg monthly Patient Condition at Discharge: Stable Plan - Discharge Summary New Discharge Prescriptions: New ARIPiprazole [Abilify] 10 mg PO DAILY #14 tab ARIPiprazole IM SYRINGE [Abilify Maintena Syringe] 400 mg IM QMONTHLY #1 syringe Venlafaxine HCl ER [Effexor XR] 75 mg PO DAILY #30 cap.er.24h Nicotine 21Mg/24Hr Patch [Habitrol] 1 patch TRANSDERM DAILY #28 patch Continue Albuterol Sulfate [Proair Hfa] 2 puff INHALATION RT-QID PRN PRN Reason: Shortness Of Breath Discontinued FLUoxetine HCL [PROzac] 20 mg PO DAILY Escitalopram Oxalate [Lexapro] 15 mg PO DAILY No Action Montelukast [Singulair] 10 mg PO HS Discharge Medication List Albuterol Sulfate [Proair Hfa] 2 puff INHALATION RT-QID PRN 04/15/16 [History] Montelukast [Singulair] 10 mg PO HS 01/18/19 [History] ARIPiprazole IM SYRINGE [Abilify Maintena Syringe] 400 mg IM QMONTHLY #1 syringe 09/17/20 [Rx] ARIPiprazole [Abilify] 10 mg PO DAILY #14 tab 09/17/20 [Rx] Nicotine 21Mg/24Hr Patch [Habitrol] 1 patch TRANSDERM DAILY #28 patch 09/17/20 [Rx] Venlafaxine HCl ER [Effexor XR] 75 mg PO DAILY #30 cap.er.24h 09/17/20 [Rx] Follow up Appointment(s)/Referral(s): None,Stated [REFERRING] - 1-2 days Activity/Diet/Wound Care/Special Instructions: Activity and diet as tolerated. Avoid the use of street drugs and alcohol. Take all medications as prescribed. When you are in need of refills on your medications please contact your medical provider and/or outpatient psychiatrist to have this done. Please go to scheduled outpatient appointment for aftercare treatment. If symptoms return or become worse, call the crisis line at and/or go to the nearest emergency room for evaluation. Discharge Disposition: HOME SELF-CARE
[2020-09-17 12:55] VITALS: TEMP 98.6
[2020-09-18] MEDS ORDERED: OLANZapine 5 MG TAB PO SCH (21:00)
== END 2020-09-17 16:00 | disposition home or self-care (01) | DRG 885 ==
LOC: EC 16:45 → 3MHU 20:31
PROVIDERS: ADMIT Psychiatry & Neurology Psychiatry; ATTEND Psychiatry & Neurology Psychiatry
DX: F33.3 Major depressive disorder, recurrent, severe with psychotic symptoms (principal); R45.851 Suicidal ideations; F12.10 Cannabis abuse, uncomplicated; F17.210 Nicotine dependence, cigarettes, uncomplicated; Z71.6 Tobacco abuse counseling; Z20.828 Contact with and (suspected) exposure to other viral communicable diseases; F41.9 Anxiety disorder, unspecified; F60.9 Personality disorder, unspecified; G47.00 Insomnia, unspecified; J45.20 Mild intermittent asthma, uncomplicated; Z56.0 Unemployment, unspecified; Z78.1 Physical restraint status; Z79.899 Other long term (current) drug therapy; Z81.8 Family history of other mental and behavioral disorders; Z82.5 Family history of asthma and other chronic lower respiratory diseases; Z91.19 Patient's noncompliance with other medical treatment and regimen; T43.96XA Underdosing of unspecified psychotropic drug, initial encounter; Z91.128 Patient's intentional underdosing of medication regimen for other reason; Z91.83 Wandering in diseases classified elsewhere; R45.1 Restlessness and agitation; Z91.010 Allergy to peanuts
CPT/HCPCS: 80053; 80061; 80299; 80306; 81025; 82075; 83036; 84443; 85025; 87635; 99285

== ENCOUNTER 2020-10-29 12:34 | Inpatient (IN) | payer MEDICAID, OTHER ==
--- NOTE | 2020-10-29 13:11 | ED ---
General Adult HPI - General Chief complaint: Psychiatric Symptoms Stated complaint: mental health Time Seen by Provider: 10/29/20 12:44 Source: patient, RN notes reviewed, old records reviewed Mode of arrival: ambulatory Limitations: no limitations - History of Present Illness Initial comments: 25 yo female presenting for evaluation of depression and suicidal ideation. Patient has dealt with depression for some time. She additionally believes that she currently may be and she had a positive home test. She has no vaginal bleeding or vaginal discharge, no lower abdominal pain. Denies suicide attempt, denies physical complaint. - Related Data Home Medications Medication Instructions Recorded Confirmed buPROPion [Wellbutrin] 100 mg PO DAILY 10/29/20 10/29/20 Previous Rx's Medication Instructions Recorded ARIPiprazole [Abilify] 10 mg PO DAILY #14 tab 09/17/20 Venlafaxine HCl ER [Effexor XR] 75 mg PO DAILY #30 cap.er.24h 09/17/20 Allergies Allergy/AdvReac Type Severity Reaction Status Date / Time cat dander Allergy Unknown Verified 10/29/20 13:41 dandelion (Taraxacum Allergy Unknown Verified 10/29/20 13:41 officinale) dog dander Allergy Unknown Verified 10/29/20 13:41 grass pollen Allergy Unknown Verified 10/29/20 13:41 mold Allergy Unknown Verified 10/29/20 13:41 oak Allergy Unknown Verified 10/29/20 13:41 peanut Allergy Unknown Verified 10/29/20 13:41 peas Allergy Unknown Verified 10/29/20 13:41 pine nut Allergy Unknown Verified 10/29/20 13:41 DUST Allergy Unknown Uncoded 10/29/20 13:41 PINE TREES Allergy Unknown Uncoded 10/29/20 13:41 Review of Systems ROS Statement: Those systems with pertinent positive or pertinent negative responses have been documented in the HPI. ROS Other: All systems not noted in ROS Statement are negative. Past Medical History Past Medical History: Asthma Additional Past Medical History / Comment(s): allergies History of Any Multi-Drug Resistant Organisms: None Reported Past Surgical History: Section Past Anesthesia/Blood Transfusion Reactions: No Reported Reaction Past Psychological History: No Psychological Hx Reported Smoking Status: Current every day smoker Past Alcohol Use History: None Reported Past Drug Use History: None Reported - Past Family History Mother Family Medical History: Asthma General Exam Limitations: no limitations General appearance: alert, in no apparent distress Head exam: Present: atraumatic, normocephalic Eye exam: Present: normal appearance, PERRL ENT exam: Present: normal exam Neck exam: Present: normal inspection. Absent: tenderness, meningismus Respiratory exam: Present: normal lung sounds bilaterally. Absent: respiratory distress, wheezes Cardiovascular Exam: Present: regular rate, normal rhythm GI/Abdominal exam: Present: soft. Absent: distended, tenderness, guarding Extremities exam: Present: normal inspection, normal capillary refill. Absent: pedal edema Neurological exam: Present: alert, oriented X3 Psychiatric exam: Present: depressed, flat affect, suicidal ideation Skin exam: Present: warm, dry, intact. Absent: cyanosis, diaphoretic Course Vital Signs 10/29/20 10/29/20 12:36 15:50 Temperature 97.8 F Pulse Rate 81 96 Respiratory 16 18 Rate Blood Pressure 123/79 100/59 O2 Sat by Pulse 98 100 Oximetry - Reevaluation(s) Reevaluation #1: 10/29/20 1500 Patient's care is signed out at shift change to Dr. Mcintosh, awaiting EPS evaluation. Medical Decision Making - Medical Decision Making By review the medical record it does appear this patient was admitted to the mental health unit. - Lab Data Result diagrams: 10/30/20 08:24 10/30/20 08:24 Lab Results 10/29/20 10/29/20 10/29/20 Range/Units 12:52 12:52 15:49 Urine HCG, Qual Not Detected (Not Detectd) Urine Opiates Screen Detected H (NotDetected) Ur Oxycodone Screen Not Detected (NotDetected) Urine Methadone Screen Not Detected (NotDetected) Ur Propoxyphene Screen Not Detected (NotDetected) Ur Barbiturates Screen Not Detected (NotDetected) U Tricyclic Antidepress Not Detected (NotDetected) Ur Phencyclidine Scrn Not Detected (NotDetected) Ur Amphetamines Screen Not Detected (NotDetected) U Methamphetamines Scrn Not Detected (NotDetected) U Benzodiazepines Scrn Not Detected (NotDetected) Urine Cocaine Screen Not Detected (NotDetected) U Marijuana (THC) Screen Detected H (NotDetected) Coronavirus (PCR) Not Detected (Not Detectd) Disposition Clinical Impression: Depression, Suicidal ideation Disposition: ADMITTED IP TO THIS HOSP Condition: Stable Is patient prescribed a controlled substance at d/c from ED?: No Decision to Admit Reason: Admit from EC
[2020-10-29 13:25] LABS: Amphetamine Screen,Urine Not Detected (NotDetected); Barbiturate Screen,Urine Not Detected (NotDetected); Benzodiazepines Screen,Urine Not Detected (NotDetected); Cocaine Screen,Urine Not Detected (NotDetected); Methadone Screen, Urine Not Detected (NotDetected); Opiate Screen,Urine Detected (NotDetected); Oxycodone Screen, Urine Not Detected (NotDetected); Phencyclidine Screen,Urine Not Detected (NotDetected); Tricyclic Antidepressant,Urine Not Detected (NotDetected); Urn Cannabinoid Scrn Detected (NotDetected)
[2020-10-29] MEDS ORDERED: MAG HYDROX/AL HYDROX/SIMETH 30 ML CUP PO PRN (17:06)
[2020-10-29] MEDS ORDERED: MAGNESIUM HYDROXIDE 2,400 MG/10 ML CUP PO PRN (17:06)
[2020-10-29] MEDS ORDERED: HALOPERIDOL LACTATE 5 MG/ML 1 ML VIAL IM PRN (17:09)
[2020-10-29] MEDS ORDERED: LORazepam 2 MG/ML INJ IM PRN (17:09)
[2020-10-29] MEDS ORDERED: haloperidoL 5 MG TAB PO PRN (17:09)
[2020-10-29] MEDS: ACETAMINOPHEN TAB 325 MG TAB PO PRN (17:43)
[2020-10-29 18:56] LABS: Appearance,Urine Clear (Clear); Bilirubin,Urine Negative (Negative); Blood,Urine Negative (Negative); Color,Urine Yellow; Glucose,Urine (UA) Negative (Negative); Ketones,Urine Negative (Negative); Leukocyte Esterase,Urine Negative (Negative); Nitrite,Urine Negative (Negative); Protein,Urine Negative (Negative); Specific Gravity,Urine 1.017 (1.001-1.035); Urobilinogen,Urine <2.0 mg/dL (<2.0)
[2020-10-29] MEDS: LORazepam 1 MG TAB PO PRN (21:30)
[2020-10-30] MEDS: ACETAMINOPHEN TAB 325 MG TAB PO PRN ×2 (04:12→15:05)
[2020-10-30 08:55] LABS: Basophils # (A) 0.1 k/uL (0-0.2); Basophils % (A) 1 %; Eosinophils # (A) 0.5 k/uL (0-0.7); Eosinophils % (A) 6 %; HCT 42.9 % (34.0-46.0); HGB 14.5 gm/dL (11.4-16.0); Lymphocytes # (A) 3.6 k/uL (1.0-4.8); Lymphocytes % (A) 46 %; MCH 30.7 pg (25.0-35.0); MCHC 33.8 g/dL (31.0-37.0); Monocytes # (A) 0.3 k/uL (0-1.0); Monocytes % (A) 4 %; Neutrophils # (A) 3.2 k/uL (1.3-7.7); Neutrophils % (A) 41 %; Platelet Count 217 k/uL (150-450); RBC 4.71 m/uL (3.80-5.40); RDW 12.4 % (11.5-15.5); WBC 7.7 k/uL (3.8-10.6)
[2020-10-30 09:05] LABS: ALT 10 U/L (4-34); AST 18 U/L (14-36); African American GFR (CKD) >90 (>60 ml/min/1.73 sqM); Albumin 4.7 g/dL (3.5-5.0); Alkaline Phosphatase 50 U/L (38-126); Anion Gap 8 mmol/L; Blood Urea Nitrogen 13 mg/dL (7-17); Calcium 10.3 mg/dL (8.4-10.2); Carbon Dioxide 28 mmol/L (22-30); Chloride 103 mmol/L (98-107); Cholesterol 151 mg/dL (<200); Glucose 91 mg/dL (74-99); HDL Cholesterol 45 mg/dL (40-60); LDL Cholesterol,Calculated 90 mg/dL (0-99); Non-African American GFR(CKD) >90 (>60 ml/min/1.73 sqM); Potassium 4.7 mmol/L (3.5-5.1); Sodium 139 mmol/L (137-145); Total Bilirubin 0.5 mg/dL (0.2-1.3); Total Protein 7.7 g/dL (6.3-8.2); Triglycerides 80 mg/dL (<150)
[2020-10-30] MEDS: VENLAFAXINE HCL ER 37.5 MG CAP PO SCH (11:28)
[2020-10-30] MEDS ORDERED: HALOPERIDOL LACTATE 5 MG/ML 1 ML VIAL IM PRN (12:11)
--- NOTE | 2020-10-30 12:12 | P.HP ---
Psychiatric H&P - . H&P Date: 10/30/20 History & Physical: Allergies Allergy/AdvReac Type Severity Reaction Status Date / Time cat dander Allergy Unknown Verified 10/29/20 13:41 dandelion (Taraxacum Allergy Unknown Verified 10/29/20 13:41 officinale) dog dander Allergy Unknown Verified 10/29/20 13:41 grass pollen Allergy Unknown Verified 10/29/20 13:41 mold Allergy Unknown Verified 10/29/20 13:41 oak Allergy Unknown Verified 10/29/20 13:41 peanut Allergy Unknown Verified 10/29/20 13:41 peas Allergy Unknown Verified 10/29/20 13:41 pine nut Allergy Unknown Verified 10/29/20 13:41 DUST Allergy Unknown Uncoded 10/29/20 13:41 PINE TREES Allergy Unknown Uncoded 10/29/20 13:41 Vital Signs Temp 97.4 F L 10/30/20 01:46 Pulse 106 H 10/30/20 01:46 Resp 16 10/30/20 01:46 BP 123/77 10/30/20 01:46 Pulse Ox 100 10/29/20 17:39 Intake & Output 10/29/20 10/30/20 10/30/20 18:59 06:59 18:59 Weight 53.127 kg Laboratory Last Values WBC 7.7 k/uL (3.8-10.6) 10/30/20 08:24 RBC 4.71 m/uL (3.80-5.40) 10/30/20 08:24 Hgb 14.5 gm/dL (11.4-16.0) 10/30/20 08:24 Hct 42.9 % (34.0-46.0) 10/30/20 08:24 MCV 91.0 fL (80.0-100.0) 10/30/20 08:24 MCH 30.7 pg (25.0-35.0) 10/30/20 08:24 MCHC 33.8 g/dL (31.0-37.0) 10/30/20 08:24 RDW 12.4 % (11.5-15.5) 10/30/20 08:24 Plt Count 217 k/uL (150-450) 10/30/20 08:24 MPV 9.0 10/30/20 08:24 Neutrophils % 41 % 10/30/20 08:24 Lymphocytes % 46 % 10/30/20 08:24 Monocytes % 4 % 10/30/20 08:24 Eosinophils % 6 % 10/30/20 08:24 Basophils % 1 % 10/30/20 08:24 Neutrophils # 3.2 k/uL (1.3-7.7) 10/30/20 08:24 Lymphocytes # 3.6 k/uL (1.0-4.8) 10/30/20 08:24 Monocytes # 0.3 k/uL (0-1.0) 10/30/20 08:24 Eosinophils # 0.5 k/uL (0-0.7) 10/30/20 08:24 Basophils # 0.1 k/uL (0-0.2) 10/30/20 08:24 Sodium 139 mmol/L (137-145) 10/30/20 08:24 Potassium 4.7 mmol/L (3.5-5.1) 10/30/20 08:24 Chloride 103 mmol/L (98-107) 10/30/20 08:24 Carbon Dioxide 28 mmol/L (22-30) 10/30/20 08:24 Anion Gap 8 mmol/L 10/30/20 08:24 BUN 13 mg/dL (7-17) 10/30/20 08:24 Creatinine 0.79 mg/dL (0.52-1.04) 10/30/20 08:24 Est GFR (CKD-EPI)AfAm >90 (>60 ml/min/1.73 sqM) 10/30/20 08:24 Est GFR (CKD-EPI)NonAf >90 (>60 ml/min/1.73 sqM) 10/30/20 08:24 Glucose 91 mg/dL (74-99) 10/30/20 08:24 Calcium 10.3 mg/dL (8.4-10.2) H 10/30/20 08:24 Total Bilirubin 0.5 mg/dL (0.2-1.3) 10/30/20 08:24 AST 18 U/L (14-36) 10/30/20 08:24 ALT 10 U/L (4-34) 10/30/20 08:24 Alkaline Phosphatase 50 U/L (38-126) 10/30/20 08:24 Total Protein 7.7 g/dL (6.3-8.2) 10/30/20 08:24 Albumin 4.7 g/dL (3.5-5.0) 10/30/20 08:24 Triglycerides 80 mg/dL (<150) 10/30/20 08:24 Cholesterol 151 mg/dL (<200) 10/30/20 08:24 LDL Cholesterol, Calc 90 mg/dL (0-99) 10/30/20 08:24 HDL Cholesterol 45 mg/dL (40-60) 10/30/20 08:24 TSH 4.330 mIU/L (0.465-4.680) 10/30/20 08:24 Urine Color Yellow 10/29/20 18:45 Urine Appearance Clear (Clear) 10/29/20 18:45 Urine pH 6.0 (5.0-8.0) 10/29/20 18:45 Ur Specific [place] 1.017 (1.001-1.035) 10/29/20 18:45 Urine Protein Negative (Negative) 10/29/20 18:45 Urine Glucose (UA) Negative (Negative) 10/29/20 18:45 Urine Ketones Negative (Negative) 10/29/20 18:45 Urine Blood Negative (Negative) 10/29/20 18:45 Urine Nitrite Negative (Negative) 10/29/20 18:45 Urine Bilirubin Negative (Negative) 10/29/20 18:45 Urine Urobilinogen <2.0 mg/dL (<2.0) 10/29/20 18:45 Ur Leukocyte Esterase Negative (Negative) 10/29/20 18:45 Urine HCG, Qual Not Detected (Not Detectd) 10/29/20 12:52 Urine Opiates Screen Detected (NotDetected) H 10/29/20 12:52 Ur Oxycodone Screen Not Detected (NotDetected) 10/29/20 12:52 Urine Methadone Screen Not Detected (NotDetected) 10/29/20 12:52 Ur Propoxyphene Screen Not Detected (NotDetected) 10/29/20 12:52 Ur Barbiturates Screen Not Detected (NotDetected) 10/29/20 12:52 U Tricyclic Antidepress Not Detected (NotDetected) 10/29/20 12:52 Ur Phencyclidine Scrn Not Detected (NotDetected) 10/29/20 12:52 Ur Amphetamines Screen Not Detected (NotDetected) 10/29/20 12:52 U Methamphetamines Scrn Not Detected (NotDetected) 10/29/20 12:52 U Benzodiazepines Scrn Not Detected (NotDetected) 10/29/20 12:52 Urine Cocaine Screen Not Detected (NotDetected) 10/29/20 12:52 U Marijuana (THC) Screen Detected (NotDetected) H 10/29/20 12:52 Coronavirus (PCR) Not Detected (Not Detectd) 10/29/20 15:49 10/30/20 10:04 IDENTIFYING DATA: Patient is a 25-year-old female who currently lives alone in an apartment is single and has 1 daughter. She is currently unemployed. HPI: Patient presented to the hospital yesterday with complaints of depression and suicidal thoughts. Patient also had stated in the ER that she believes that she may have been however her beta-hCG was negative. Patient's UDS is positive for opiates and THC. Patient was recently discharged from [facility] in early September 2020 under the care of Dr. James. At that time patient was placed on Effexor and Abilify Maintenna. Patient was seen on the unit today and was laying in her bed and initially resistant to being interviewed this morning. She states that she was feeling tired however was agreeable to speak with selling underwriter in the office. Patient had a soft tone of voice and appeared to be constricted in her affect. She spoke about feeling depressed and anxious. She claims that she has been off of her medications for the past 2-3 weeks as she had a " scare". She states that she has been feeling more depressed as her parents "went behind my back" and got temporary custody of her daughter for 3 months. She states that "they are making me feel bad about being a bad mother". She claims that she is not able to see her daughter as frequently as before and has been tough for her. She states that she had a phone appointment with [facility] however has not seen them since her discharge. She claims that her last Abilify Maintenna injection was prior to discharge last time she was on the unit. She denies any paranoia at this time and does not endorse any delusions. She claims that her sleep is poor. Patient denies any suicidal or homicidal ideations intent or plan. At this time patient denies any auditory or visual hallucinations. Patient denies any flight of ideas racing thoughts and increased in goal directed behavior. Patient admits to using cigarettes and occasional marijuana and denies any other recreational drug use. PAST PSYCHIATRIC HISTORY: Patient states that she has a history of depression and anxiety. Patient was previously on Abilify Maintenna, Effexor on her previous hospitalization. Patient's last hospitalization to the mental health unit was in August 2020. Patient states that she has been following up with [facility]. Patient denies any history of suicide attempts in the past. PMH: Asthma ALLERGIES: as per EMR CHEMICAL DEPENDENCY HISTORY: as per HPI FAMILY PSYCHIATRIC/SUBSTANCE USE HISTORY:. Mother suffers from depression. SOCIAL HISTORY: Patient was born and raised in [facility]. Patient currently lives alone in apartment is single has 1 daughter and is currently unemployed. She states that she completed high school. She denies ever being to fdc or nursing home in the past. MENTAL STATUS EXAM: General Appearance: Patient appears to be short in stature, thin stated age is alert, constricted, isolative. Patient appears to have poor hygiene and grooming. Behavior: Patient is seated without any agitated behavior. And guarded. Speech: Patient's speech is fluent and nonpressured. [place]. Mood/Affect: Patient reports their mood is depressed, affect is congruent and constricted. Suicidality/Homicidality: Patient denies having any homicidal ideation intent or plan. Denies any suicidal ideations intent or plan Perceptions: Patient denies any visual hallucinations and denies any auditory hallucinations Though content/process: Patient is concrete, has poverty of content. Not endorsing any delusions or paranoia. Memory and concentration: AOX3, grossly intact for the purposes of this session. Can spell "WORLD" backwards Judgment and insight: poor STRENGTHS/WEAKNESSES: strength is that patient is resilient. Weakness is that patient has poor judgment and poor social support INTELLECT: average IMPRESSIONS: Major depressive disorder, recurrent, without psychotic features Cannabis use disorder Nicotine dependence PLAN: -Patient is admitted under voluntary status to MHU for stabilization of psy chiatric symptoms and safety. Patient has signed adult voluntary form and medication consent and is placed in patient's chart. -Medications : Will start patient on Effexor 37.5 mg daily for mood/anxiety. We'll also start trazodone 25 mg daily at bedtime for insomnia/mood. -Ativan and Haldol PRN for agitation/aggression -Patient was counselled on substance abuse and desired to cut back on use -Patient was informed of the risks, benefits and side effects of the medication and patient verbally consented to taking the medications. Patient signed med consent form and was placed in chart. -Internal Medicine consult to perform medical evaluation and physical. -NRT - nicotine gum - on board for discharge planning. Encourage patient to participate in groups to work on coping skills. 10/30/20 12:12
[2020-10-30] MEDS: NICOTINE POLACRILEX 2 MG GUM BUCCAL PRN (15:05)
[2020-10-30] MEDS: LORazepam 1 MG TAB PO PRN (15:09)
[2020-10-30] MEDS: traZODone HCL 50 MG TAB PO SCH (21:07)
[2020-10-31] MEDS: VENLAFAXINE HCL ER 37.5 MG CAP PO SCH (08:54)
--- NOTE | 2020-10-31 09:09 | P.PN ---
Progress Note - Text Progress Note Date: 10/31/20 Interval History: Patient was seen after taking her medications this morning and was directable and agreeable to speak with mortgage loan underwriter in the office. Patient continues to have a soft tone of voice and is concrete and vague. She denied any improvement since yesterday however did state that she was able to sleep last night better on the medication trazodone. She continues to state that she is feeling depressed and anxious while on the unit. She claims that she signed an AMA form yesterday and states that "I'll only stay 3 more days". She claims that she wants to go home to her daughter and does not think that she needs to be in the hospital. She continues to minimize her condition. She states that she did not go to any groups however we'll try to go to groups today. At this time patient denies any suicidal or homical ideations, intent or plan. Patient denies any auditory, visual hallucinations and denies any paranoia or delusions. Patient denies any side effects from the medications and has been compliant with meds. Mental Status Exam: General Appearance: Patient appears to be short in stature, thin stated age is alert, constricted, uncooperative. Patient appears to have poor hygiene and grooming. Behavior: Patient is seated without any agitated behavior. Evasive and guarded. Speech: Patient's speech is fluent and nonpressured. [place]. Monotone Mood/Affect: Patient reports their mood is depressed and anxious, affect is congruent and constricted. Suicidality/Homicidality: Patient denies having any homicidal ideation intent or plan. Denies any suicidal ideations intent or plan Perceptions: Patient denies any visual hallucinations and denies any auditory hallucinations Though content/process: Patient is concrete, has poverty of content. Not endorsing any delusions or paranoia. Minimizing her condition. Memory and concentration: AOX3, grossly intact for the purposes of this session Judgment and insight: poor Assessment Major depressive disorder, recurrent, without psychotic features Cannabis use disorder Nicotine dependence Plan: -Patient continues to meet criteria for inpatient psychiatric admission for symptom stabilization and safety. Patient has signed adult voluntary form and medication consent and was placed in patient's chart. -Medications: Increased Effexor XRT 75 mg daily for mood/anxiety. Continue trazodone 25 mg daily at bedtime for insomnia/mood. -When necessary Ativan and Haldol for agitation/aggression. -NRT - nicotine gum -SW on board for discharge planning. Encouraged the patient to participate in milieu. Patient has signed AMA. Patient is currently on a deferral from her previous hospitalization. Will be filing for demand for hearing due to patient's noncompliance with her medication and follow-up and also poor insight into her condition and poor judgment.
[2020-10-31] MEDS: NICOTINE POLACRILEX 2 MG GUM BUCCAL PRN ×2 (12:12→20:16)
[2020-10-31] MEDS: LORazepam 1 MG TAB PO PRN (12:49)
[2020-10-31] MEDS: traZODone HCL 50 MG TAB PO SCH (20:16)
[2020-10-31] MEDS: ACETAMINOPHEN TAB 325 MG TAB PO PRN ×2 (21:02→23:57)
[2020-11-01 02:55] VITALS: RESP 17
[2020-11-01] MEDS: LORazepam 1 MG TAB PO PRN ×2 (02:58→19:33)
[2020-11-01] MEDS: VENLAFAXINE HCL ER 75 MG CAP PO SCH (08:44)
[2020-11-01] MEDS ORDERED: VENLAFAXINE HCL 75 MG TAB PO SCH (09:00)
--- NOTE | 2020-11-01 11:34 | P.PN ---
Progress Note - Text Progress Note Date: 11/01/20 Interval History: Patient was seen today wandering the hallways this morning and was directable and agreeable to speak with display card writer in the office. Patient continues to have a soft tone of voice and is concrete and shares minimal information with display card writer. She appears to be fairly withdrawn and timid. She claims that she was having a difficult time falling asleep last night and asked if she could have her trazodone increased. She states that she only slept about 4 hours. She claims that she did watch the TV yesterday for [employer] [place]. She continues to state that she is feeling depressed while on the unit however does state that this has been mildly improving. She continues to claim that she wants to go home to her daughter and does not think that she needs to be in the hospital. She claims that she did go to some groups yesterday and only "played some games". She states that she has not been sharing her thoughts and feelings in group. At this time patient denies any suicidal or homical ideations, intent or plan. Patient denies any auditory, visual hallucinations and denies any paranoia or delusions. Patient denies any side effects from the medications and has been compliant with meds. Mental Status Exam: General Appearance: Patient appears to be short in stature, thin stated age is alert, constricted, withdrawn. Patient appears to have improving hygiene and grooming. Behavior: Patient is seated without any agitated behavior. Evasive and guarded. Speech: Patient's speech is fluent and nonpressured. [place]. Monotone. Soft tone of voice. Mood/Affect: Patient reports their mood is depressed and anxious, improving mildly, affect is congruent and constricted. Suicidality/Homicidality: Patient denies having any homicidal ideation intent or plan. Denies any suicidal ideations intent or plan Perceptions: Patient denies any visual hallucinations and denies any auditory hallucinations Though content/process: Patient is concrete, has poverty of content. Not endorsing any delusions or paranoia. Memory and concentration: AOX3, grossly intact for the purposes of this session Judgment and insight: poor, improving mildly Assessment Major depressive disorder, recurrent, without psychotic features Cannabis use disorder Nicotine dependence Plan: -Patient continues to meet criteria for inpatient psychiatric admission for symptom stabilization and safety. Patient has signed adult voluntary form and medication consent and was placed in patient's chart. -Medications: Continue with Effexor XRT 75 mg daily for mood/anxiety. The dose of Effexor can be increased possibly over the weekend to 150 mg if needed/tolerated. Increased trazodone 50 mg daily at bedtime for insomnia/mood. -When necessary Ativan and Haldol for agitation/aggression. -NRT - nicotine gum -SW on board for discharge planning. Encouraged the patient to participate in milieu. Patient has signed AMA. Patient is currently on a deferral from her previous hospitalization. Will be filing for demand for hearing due to patient's noncompliance with her medication and follow-up and also poor insight into her condition and poor judgment.
[2020-11-01] MEDS: ACETAMINOPHEN TAB 325 MG TAB PO PRN ×2 (12:05→18:57)
[2020-11-01] MEDS: NICOTINE POLACRILEX 2 MG GUM BUCCAL PRN (18:57)
[2020-11-01] MEDS: traZODone HCL 50 MG TAB PO SCH (22:56)
[2020-11-02] MEDS: VENLAFAXINE HCL ER 75 MG CAP PO SCH (08:59)
[2020-11-02] MEDS: NICOTINE POLACRILEX 2 MG GUM BUCCAL PRN ×2 (09:00→16:07)
[2020-11-02] MEDS: LORazepam 1 MG TAB PO PRN ×2 (09:02→16:51)
[2020-11-02] MEDS: ACETAMINOPHEN TAB 325 MG TAB PO PRN ×2 (13:01→20:13)
--- NOTE | 2020-11-02 14:27 | P.PN ---
Progress Note - Text Progress Note Date: 11/02/20 Clinical Problems: Major depressive disorder recurrent without psychotic features, cannabis use disorder unspecified, tobacco use Interim history: I reviewed the medical record and interviewed the patient. She is a 25-year-old single female readmitted to the psychiatric unit with complaints of depression and suicidal ideation. She apparently stopped her psychotropic medications because she developed a belief that she was . She maintained his belief despite negative urine hCG test. Note that he urine drug screen was positive for opiates and marijuana. She complained that she is feeling depressed because if she is not able to visit with her daughter as much as she would like. She was difficult interview because she had marked psychomotor retardation, soft almost and irritable speech and prominent poverty of thought. She does not want to withdraw her AMA requests. He denied feeling depressed or having thoughts of or suicide.. She denied experiencing auditory and visual hallucinations, ideas reference, thought insertion or thought broadcasting. Since admission to the unit she has had no episodes of behavioral dyscontrol. She intermittently attends therapeutic groups and activities. She slept 5 hours last night. Mental status exam: He has a short thin and frail-appearing 25-year-old female who was pleasant on approach. She made eye contact and appeared to attend to interview. She had a sad facial expression. She had psychomotor retardation but no abnormal involuntary movements. Her speech was not spontaneous and had decreased rate, volume and rhythm. Her affect was depressed but reactive. She denied current suicidal ideation or wishes. She did not express feelings of hopelessness or helplessness. She did not express ideas reference, paranoid ideation or delusions. Her thinking was concrete and she poverty of content. She denied hallucinations did not appear to responding to internal stimuli. Assessment: She appears more negative and depressed. She is denying suicidal thoughts and wishes. There is no apparent psychotic symptoms during this hospitalization. Plan: Continue inpatient treatment. Continue safety precautions. Continue Effexor XR 75 mg daily and titrated clinical response and tolerance. Trazodone 50 mg at bedtime for insomnia. The attending psychiatrist decide whether to proceed with involuntary or discharge home with outpatient care. Ativan and/or Haldol for agitation or aggression. Encourage participation in therapeutic groups and activities. Evaluate clinical status and response to treatment daily basis.
[2020-11-02] MEDS: traZODone HCL 50 MG TAB PO SCH (20:13)
[2020-11-03] MEDS: VENLAFAXINE HCL ER 75 MG CAP PO SCH (08:09)
[2020-11-03] MEDS: NICOTINE POLACRILEX 2 MG GUM BUCCAL PRN (09:04)
--- NOTE | 2020-11-03 12:28 | P.PN ---
Progress Note - Text Progress Note Date: 11/03/20 Clinical Problems: Major depressive disorder recurrent without psychotic features, cannabis use disorder unspecified, tobacco use Interim history: I reviewed the medical record and interviewed the patient. She complained of rhinorrhea and nasal congestion and requested a prescription for an ALLERGY medication She denied shortness of breath or cough and her temperature is normal. She complains of continued feelings depression that she attributes to not having guardianship of her daughter. She acknowledged that she stopped taking her psychotropic medications because she thought she was . Her affect brightened considerably when she talked about the possibility of becoming pregna nt. She became disheartened when she learned that the test was inaccurate. Mental status exam: She presented as a short casually groomed female who was pleasant on approach. She made eye contact and attended the interview. She has psychomotor slowing and no abnormal movements. Her speech was slow, soft and monotone. Her affect was depressed and only moderately reactive. She denied feeling hopeless or helpless. She denied having suicidal thoughts or wishes. She denied experiencing ideas reference, paranoid ideation and did not express paranoid delusional beliefs. She denied hallucinations didn't appear to be responding to internal stimuli. Assessment: Her affect is slightly more expressive than yesterday but she continued to show marked psychomotor slowing. Plan: Continue inpatient treatment. Continue safety precautions. Claritin 10 mg twice a day when necessary for ALLERGY symptoms. Continue Effexor XR 75 mg daily and titrated clinical response and tolerance. Trazodone 50 mg at bedtime for insomnia. The attending psychiatrist decide whether to proceed with involuntary or discharge home with outpatient care. Ativan and/or Haldol for agitation or aggression. Encourage participation in therapeutic groups and activities. Evaluate clinical status and response to treatment daily basis.
[2020-11-03] MEDS: LORATADINE-PSEUDOEPH 5-120 MG 1 EACH TAB.ER.12H PO PRN (15:06)
[2020-11-03] MEDS: LORazepam 1 MG TAB PO PRN ×2 (15:08→22:56)
[2020-11-03] MEDS: traZODone HCL 50 MG TAB PO SCH (21:01)
[2020-11-03 21:16] VITALS: BP 113/72; PULSE 86; TEMP 97.3
[2020-11-03] MEDS: ACETAMINOPHEN TAB 325 MG TAB PO PRN (22:56)
[2020-11-04] MEDS: VENLAFAXINE HCL ER 75 MG CAP PO SCH (08:54)
[2020-11-04] MEDS: NICOTINE POLACRILEX 2 MG GUM BUCCAL PRN (09:00)
[2020-11-04] MEDS ORDERED: hydrOXYzine pamoate 25 MG CAP PO PRN (10:12)
[2020-11-04] MEDS: LORATADINE-PSEUDOEPH 5-120 MG 1 EACH TAB.ER.12H PO PRN (10:20)
--- NOTE | 2020-11-04 10:29 | P.DS ---
Providers Date of admission: 10/29/20 16:59 Expected date of discharge: 11/04/20 Attending physician: Andrew Borges MD Consults: 10/29/20 17:06 Consult Physician Routine Consulting Provider: Sanjeev Lopez Consult Reason/Comments: H&P and medical Do you want consulting provider notified?: Yes Primary care physician: Andrew Loja - Discharge Diagnosis(es) (1) Major depressive disorder, recurrent severe without psychotic features Current Visit: Yes Status: Acute Priority: High (2) Cannabis use disorder, mild, abuse Current Visit: Yes Status: Acute Priority: Medium (3) Nicotine dependence Current Visit: Yes Status: Acute Priority: Low Hospital Course: Admission HPI: Admission note was completed by copywriter "Patient is a 25-year-old female who currently lives alone in an apartment is single and has 1 daughter. She is currently unemployed. Patient presented to the hospital yesterday with complaints of depression and suicidal thoughts. Patient also had stated in the ER that she believes that she may have been however her beta-hCG was negative. Patient's UDS is positive for opiates and THC. Patient was recently discharged from the mental health unit in early September 2020 under the care of Dr. James. At that time patient was placed on Effexor and Abilify Maintenna. Patient was seen on the unit today and was laying in her bed and initially resistant to being interviewed this morning. She states that she was feeling tired however was agreeable to speak with copywriter in the office. Patient had a soft tone of voice and appeared to be constricted in her affect. She spoke about feeling depressed and anxious. She claims that she has been off of her medications for the past 2-3 weeks as she had a " scare". She states that she has been feeling more depressed as her parents "went behind my back" and got temporary custody of her daughter for 3 months. She states that "they are making me feel bad about being a bad mother". She claims that she is not able to see her daughter as frequently as before and has been tough for her. She states that she had a phone appointment with [facility] however has not seen them since her discharge. She claims that her last Abilify Maintenna injection was prior to discharge last time she was on the unit. She denies any paranoia at this time and does not endorse any delusions. She claims that her sleep is poor. Patient denies any suicidal or homicidal ideations intent or plan. At th is time patient denies any auditory or visual hallucinations. Patient denies any flight of ideas racing thoughts and increased in goal directed behavior. Patient admits to using cigarettes and occasional marijuana and denies any other recreational drug use." Hospital course: Upon admission to the unit patient was initially depressed and suicidal. Patient was however directable and agreeable to commence treatment and signed adult voluntary form. Patient was previously on deferral from her last admission. Patient ended up signing an AMA form however did get along with other patients on the unit followed unit protocol and also was taking her medications. Patient was compliant with the medications and denied any side effects throughout hospital course. Patient was started on Effexor and titrate up the dose of 75 mg daily for mood/anxiety. Patient was also increased to 100 mg of trazodone daily at bedtime for insomnia/mood. Patient was also started on Vistaril 25 mg twice a day when necessary for anxiety. Patient spoke of her stressors and engaged in therapy both group and individual. Patient was also seen by medical team for history and physical exam. Throughout the course of the hospitalization patient gradually improved with regards to mood, anxiety, sleep and became more future oriented with improved insight and judgment. On the day of discharge patient denied any suicidal or homicidal ideations intent or plan denied any auditory or visual hallucinations. Patient endorsed wanting to live for her health, future and also her daughter. The patient denied any access to guns or weapons. Patient denied any paranoia and did not endorse any delusions. Patient does not have a significant history of substance abuse and was counseled on abstaining from all substances including alcohol and marijuana. Patient wanted to cut back on her marijuana use by herself. Patient was also counseled on the medications and need for regular compliance and was encouraged to follow-up with their outpatient appointment for mental health and also for primary care. Mental status exam: General Appearance: Patient appears to be short in stature, thin stated age is alert, pleasant, and attempts to be cooperative. Patient is in no acute distress and has improved hygiene and grooming Behavior: Patient is calmly seated without any agitated behavior. Speech: Patient's speech is fluent and nonpressured. Mood/Affect: Patient reports their mood is "good", affect is congruent and euthymic. Suicidality/Homicidality: Patient denies having any suicidal or homicidal ideation intent or plan. Perceptions: Patient denies any auditory or visual hallucinations. Though content/process: There is no evidence of any delusional thought content and thought process is linear and goal-directed. more future oriented Memory and concentration: AOX3, grossly intact for the purposes of this session. Can spell "WORLD" backwards correctly. Judgment and insight: improved with guarded prognosis Impression: Major depressive disorder, recurrent, severe without psychotic features Cannabis use disorder mild Nicotine dependence Plan: -Continue with discharge today as patient has improved and stabilized psychiatrically and is not currently an imminent threat to herself and/or others. -Continue medications: Continue with Effexor 75 mg daily for mood/anxiety, trazodone 100 mg daily at bedtime for insomnia/mood, Vistaril 25 mg twice a day when necessary for anxiety. -Patient was counseled on the need for medication compliance and appropriate follow-up at mental health and also primary care for medical issues. Patient verbalized understanding and agreed. -Social work to arrange for and conduct family meeting to ensure safety upon discharge and answer any questions/concerns. Patient will be discharged back home today. Social work also to arrange for patients follow up appointments for psychiatric care along with follow up with primary care provider. -Patient counseled on abstaining from recreational drugs and marijuana and alcohol. Was informed/educated on the adverse effects on their physical and mental health. Patient verbally agreed and understood. Patient wanted to cut back on her cannabis use on her own. -Patient was instructed to return to the hospital or seek immediate medical care if their psychiatric or medical symptoms do worsen or reoccur. Allergies Allergy/AdvReac Type Severity Reaction Status Date / Time cat dander Allergy Unknown Verified 10/29/20 13:41 dandelion (T[place]axacum Allergy Unknown Verified 10/29/20 13:41 officinale) dog dander Allergy Unknown Verified 10/29/20 13:41 grass pollen Allergy Unknown Verified 10/29/20 13:41 mold Allergy Unknown Verified 10/29/20 13:41 oak Allergy Unknown Verified 10/29/20 13:41 peanut Allergy Unknown Verified 10/29/20 13:41 peas Allergy Unknown Verified 10/29/20 13:41 pine nut Allergy Unknown Verified 10/29/20 13:41 DUST Allergy Unknown Uncoded 10/29/20 13:41 P[place]REES Allergy Unknown Uncoded 10/29/20 13:41 Laboratory Results WBC 7.7 k/uL (3.8-10.6) 10/30/20 08:24 RBC 4.71 m/uL (3.80-5.40) 10/30/20 08:24 Hgb 14.5 gm/dL (11.4-16.0) 10/30/20 08:24 Hct 42.9 % (34.0-46.0) 10/30/20 08:24 MCV 91.0 fL (80.0-100.0) 10/30/20 08:24 MCH 30.7 pg (25.0-35.0) 10/30/20 08:24 MCHC 33.8 g/dL (31.0-37.0) 10/30/20 08:24 RDW 12.4 % (11.5-15.5) 10/30/20 08:24 Plt Count 217 k/uL (150-450) 10/30/20 08:24 MPV 9.0 10/30/20 08:24 Neutrophils % 41 % 10/30/20 08:24 Lymphocytes % 46 % 10/30/20 08:24 Monocytes % 4 % 10/30/20 08:24 Eosinophils % 6 % 10/30/20 08:24 Basophils % 1 % 10/30/20 08:24 Neutrophils # 3.2 k/uL (1.3-7.7) 10/30/20 08:24 Lymphocytes # 3.6 k/uL (1.0-4.8) 10/30/20 08:24 Monocytes # 0.3 k/uL (0-1.0) 10/30/20 08:24 Eosinophils # 0.5 k/uL (0-0.7) 10/30/20 08:24 Basophils # 0.1 k/uL (0-0.2) 10/30/20 08:24 Sodium 139 mmol/L (137-145) 10/30/20 08:24 Potassium 4.7 mmol/L (3.5-5.1) 10/30/20 08:24 Chloride 103 mmol/L (98-107) 10/30/20 08:24 Carbon Dioxide 28 mmol/L (22-30) 10/30/20 08:24 Anion Gap 8 mmol/L 10/30/20 08:24 BUN 13 mg/dL (7-17) 10/30/20 08:24 Creatinine 0.79 mg/dL (0.52-1.04) 10/30/20 08:24 Est GFR (CKD-EPI)AfAm >90 (>60 ml/min/1.73 sqM) 10/30/20 08:24 Est GFR (CKD-EPI)NonAf >90 (>60 ml/min/1.73 sqM) 10/30/20 08:24 Glucose 91 mg/dL (74-99) 10/30/20 08:[address] Glu mg/dL 97 10/30/20 08:24 Hemoglobin A1c 5.0 % (4.0-6.0) 10/30/20 08:24 Calcium 10.3 mg/dL (8.4-10.2) H 10/30/20 08:24 Total Bilirubin 0.5 mg/dL (0.2-1.3) 10/30/20 08:24 AST 18 U/L (14-36) 10/30/20 08:24 ALT 10 U/L (4-34) 10/30/20 08:24 Alkaline Phosphatase 50 U/L (38-126) 10/30/20 08:24 Total Protein 7.7 g/dL (6.3-8.2) 10/30/20 08:24 Albumin 4.7 g/dL (3.5-5.0) 10/30/20 08:24 Triglycerides 80 mg/dL (<150) 10/30/20 08:24 Cholesterol 151 mg/dL (<200) 10/30/20 08:24 LDL Cholesterol, Calc 90 mg/dL (0-99) 10/30/20 08:24 HDL Cholesterol 45 mg/dL (40-60) 10/30/20 08:24 TSH 4.330 mIU/L (0.465-4.680) 10/30/20 08:24 Urine Color Yellow 10/29/20 18:45 Urine Appearance Clear (Clear) 10/29/20 18:45 Urine pH 6.0 (5.0-8.0) 10/29/20 18:45 Ur Specific [place] 1.017 (1.001-1.035) 10/29/20 18:45 Urine Protein Negative (Negative) 10/29/20 18:45 Urine Glucose (UA) Negative (Negative) 10/29/20 18:45 Urine Ketones Negative (Negative) 10/29/20 18:45 Urine Blood Negative (Negative) 10/29/20 18:45 Urine Nitrite Negative (Negative) 10/29/20 18:45 Urine Bilirubin Negative (Negative) 10/29/20 18:45 Urine Urobilinogen <2.0 mg/dL (<2.0) 10/29/20 18:45 Ur Leukocyte Esterase Negative (Negative) 10/29/20 18:45 Urine HCG, Qual Not Detected (Not Detectd) 10/29/20 12:52 Urine Opiates Screen Detected (NotDetected) H 10/29/20 12:52 Ur Oxycodone Screen Not Detected (NotDetected) 10/29/20 12:52 Urine Methadone Screen Not Detected (NotDetected) 10/29/20 12:52 Ur Propoxyphene Screen Not Detected (NotDetected) 10/29/20 12:52 Ur Barbiturates Screen Not Detected (NotDetected) 10/29/20 12:52 U Tricyclic Antidepress Not Detected (NotDetected) 10/29/20 12:52 Ur Phencyclidine Scrn Not Detected (NotDetected) 10/29/20 12:52 Ur Amphetamines Screen Not Detected (NotDetected) 10/29/20 12:52 U Methamphetamines Scrn Not Detected (NotDetected) 10/29/20 12:52 U Benzodiazepines Scrn Not Detected (NotDetected) 10/29/20 12:52 Urine Cocaine Screen Not Detected (NotDetected) 10/29/20 12:52 U Marijuana (THC) Screen Detected (NotDetected) H 10/29/20 12:52 Coronavirus (PCR) Not Detected (Not Detectd) 10/29/20 15:49 Vital Signs Temp 97.3 F L 11/03/20 21:15 Pulse 86 11/03/20 21:15 Resp 17 11/01/20 02:55 BP 113/72 11/03/20 21:15 Pulse Ox 96 11/01/20 02:55 Intake & Output 11/03/20 11/04/20 11/04/20 18:59 06:59 18:59 Weight 54.5 kg Patient Condition at Discharge: Stable Plan - Discharge Summary New Discharge Prescriptions: New Loratadine-Pseudoeph 5-120 mg [Claritin-D 12 Hour] 1 each PO Q12HR PRN 30 Days tab.er.12h PRN Reason: Allergy Symptoms traZODone HCL [Desyrel] 100 mg PO HS 30 Days tab Venlafaxine HCl ER [Effexor XR] 75 mg PO DAILY 30 Days cap.er.24h Nicotine Polacrilex [Nicorette] 2 mg BUCCAL Q4HR PRN 14 Days gum PRN Reason: Nicotine Cravings Acetaminophen Tab [Tylenol] 650 mg PO Q4HR PRN tab PRN Reason: Pain/Discomfort hydrOXYzine pamoate [Vistaril] 25 mg PO BID PRN 30 Days cap PRN Reason: Anxiety Discontinued ARIPiprazole [Abilify] 10 mg PO DAILY #14 tab Venlafaxine HCl ER [Effexor XR] 75 mg PO DAILY #30 cap.er.24h buPROPion [Wellbutrin] 100 mg PO DAILY Discharge Medication List Acetaminophen Tab [Tylenol] 650 mg PO Q4HR PRN tab 11/04/20 [Rx] Loratadine-Pseudoeph 5-120 mg [Claritin-D 12 Hour] 1 each PO Q12HR PRN 30 Days tab.er.12h 11/04/20 [Rx] Nicotine Polacrilex [Nicorette] 2 mg BUCCAL Q4HR PRN 14 Days gum 11/04/20 [Rx] Venlafaxine HCl ER [Effexor XR] 75 mg PO DAILY 30 Days cap.er.24h 11/04/20 [Rx] hydrOXYzine pamoate [Vistaril] 25 mg PO BID PRN 30 Days cap 11/04/20 [Rx] traZODone HCL [Desyrel] 100 mg PO HS 30 Days tab 11/04/20 [Rx] Follow up Appointment(s)/Referral(s): [facility] [Outside] - 11/11/20 1:00 pm (11-11-20 @ 1:00 with JIMMY Smith at [facility] office 11-14-20 @ 12:00 with Jacklyn Carlos by phone) Andrew Loja DO [Primary Care Provider] - 1-2 days Activity/Diet/Wound Care/Special Instructions: Activity and diet as tolerated. Avoid the use of street drugs and alcohol. Take all medications as prescribed. When you are in need of refills on your medications please contact your medical provider and/or outpatient psychiatrist to have this done. Please go to scheduled outpatient appointment for aftercare treatment. If symptoms return or become worse, call the crisis line at and/or go to the nearest emergency room for evaluation. Discharge Disposition: HOME SELF-CARE
[2020-11-04] MEDS ORDERED: traZODone HCL 100 MG TAB PO SCH (21:00)
--- NOTE | 2020-11-10 09:47 | P.HPMEDMHU ---
History of Present Illness H&P Date: 10/30/20 Chief Complaint: Medical management This is a 25-year-old female seen evaluated examined psychiatric unit, patient admitted into the hospital with suicidal thoughts and ideation and major depression, she was admitted through the emergency department, her drug screen was positive for opiates and cannabis, patient was initially hospitalized in psychiatric unit back in September 2020, her past medical history of fall asthma which is intermittent denies any asthma-like symptoms, patient does smoke however along with marijuana, her urinary test is negative, Review of Systems All systems: negative Past Medical History Past Medical History: Asthma Additional Past Medical History / Comment(s): allergies History of Any Multi-Drug Resistant Organisms: None Reported Past Surgical History: Section Past Anesthesia/Blood Transfusion Reactions: No Reported Reaction Past Psychological History: No Psychological Hx Reported Smoking Status: Current some day smoker Past Alcohol Use History: None Reported Past Drug Use History: None Reported - Past Family History Mother Family Medical History: Asthma Medications and Allergies Home Medications Medication Instructions Recorded Confirmed Type Acetaminophen Tab [Tylenol] 650 mg PO Q4HR PRN tab 11/04/20 Rx Loratadine-Pseudoeph 5-120 mg 1 each PO Q12HR PRN 30 Days 11/04/20 Rx [Claritin-D 12 Hour] tab.er.12h Nicotine Polacrilex [Nicorette] 2 mg BUCCAL Q4HR PRN 14 Days gum 11/04/20 Rx Venlafaxine HCl ER [Effexor XR] 75 mg PO DAILY 30 Days cap.er.24h 11/04/20 Rx hydrOXYzine pamoate [Vistaril] 25 mg PO BID PRN 30 Days cap 11/04/20 Rx traZODone HCL [Desyrel] 100 mg PO HS 30 Days tab 11/04/20 Rx Allergies Allergy/AdvReac Type Severity Reaction Status Date / Time cat dander Allergy Unknown Verified 10/29/20 13:41 dandelion (Taraxacum Allergy Unknown Verified 10/29/20 13:41 officinale) dog dander Allergy Unknown Verified 10/29/20 13:41 grass pollen Allergy Unknown Verified 10/29/20 13:41 mold Allergy Unknown Verified 10/29/20 13:41 oak Allergy Unknown Verified 10/29/20 13:41 peanut Allergy Unknown Verified 10/29/20 13:41 peas Allergy Unknown Verified 10/29/20 13:41 pine nut Allergy Unknown Verified 10/29/20 13:41 DUST Allergy Unknown Uncoded 10/29/20 13:41 PINE TREES Allergy Unknown Uncoded 10/29/20 13:41 Physical Exam Vitals: Vital Signs Temp Pulse Resp BP Pulse Ox 10/30/20 13:45 97.7 F 10/30/20 01:46 97.4 F L 106 H 16 123/77 10/29/20 17:39 97.8 F 80 16 109/69 100 10/29/20 17:20 97.8 F 80 16 109/69 100 - Constitutional General appearance: average body habitus - EENT Eyes: EOMI, PERRLA Ears: bilateral: normal - Neck Neck: normal ROM Carotids: bilateral: upstroke normal Thyroid: bilateral: normal size - Respiratory Respiratory: bilateral: CTA - Cardiovascular Rhythm: regular Heart sounds: normal: S1, S2 - Gastrointestinal General gastrointestinal: soft - Neurologic Neurologic: CNII-XII intact - Musculoskeletal Musculoskeletal: gait normal, generalized weakness, strength equal bilaterally - Psychiatric Psychiatric: A&O x's 3, appropriate affect, intact judgment & insight Cranial Nerve Examination - Cranial Nerves Cranial Nerve I- Olfactory: Intact Cranial Nerve II- Optic: Intact Cranial Nerve III- Oculomotor: Intact Cranial Nerve IV- Trochlear: Intact Cranial Nerve V- Trigeminal: Intact Cranial Nerve - Abducens: Intact Cranial Nerve VII- Facial: Intact Cranial Nerve VIII- Auditory: Intact Cranial Nerve IX- Glossopharyngeal: Intact Cranial Nerve X- Vagus: Intact Cranial Nerve XI- Accessory: Intact Cranial Nerve XII- Hypoglossal: Intact Results CBC & Chem 7: 10/30/20 08:24 10/30/20 08:24 Labs: Abnormal Lab Results - Last 24 Hours (Table) 10/30/20 Range/Units 08:24 Calcium 10.3 H (8.4-10.2) mg/dL Thrombosis Risk Factor Assmnt - Choose All That Apply Any of the Below Risk Factors Present?: No Other Risk Factors: No Other congenital or acquired thrombophilia - If yes, enter type in comment: No Thrombosis Risk Factor Assessment Level: Very Low Risk Assessment and Plan Assessment: Chronic intermittent asthma stable Major depression Suicidal ideation and thoughts Plan: Continue current psychiatric plan and care B2 agonist as needed like Ventolin 2 puffs 4 times a day when necessary Time with Patient: Greater than 30
== END 2020-11-04 11:58 | disposition home or self-care (01) | DRG 885 ==
LOC: EC 12:34 → 3MHU 16:59
PROVIDERS: ADMIT Psychiatry & Neurology Psychiatry; ATTEND Psychiatry & Neurology Psychiatry
DX: F33.2 Major depressive disorder, recurrent severe without psychotic features (principal); R45.851 Suicidal ideations; Z20.828 Contact with and (suspected) exposure to other viral communicable diseases; F41.9 Anxiety disorder, unspecified; F12.10 Cannabis abuse, uncomplicated; J45.20 Mild intermittent asthma, uncomplicated; T50.906A Underdosing of unspecified drugs, medicaments and biological substances, initial encounter; Z91.128 Patient's intentional underdosing of medication regimen for other reason; G47.00 Insomnia, unspecified; F17.210 Nicotine dependence, cigarettes, uncomplicated; Z71.6 Tobacco abuse counseling; Z79.899 Other long term (current) drug therapy; Z91.018 Allergy to other foods; Z91.010 Allergy to peanuts; Z91.048 Other nonmedicinal substance allergy status; Z98.891 History of uterine scar from previous surgery; Z56.0 Unemployment, unspecified; Z81.8 Family history of other mental and behavioral disorders; Z82.5 Family history of asthma and other chronic lower respiratory diseases; Y63.6 Underdosing and nonadministration of necessary drug, medicament or biological substance
CPT/HCPCS: 80053; 80061; 80306; 81003; 81025; 82075; 83036; 84443; 85025; 87635; 99285

== ENCOUNTER 2021-01-21 09:17 | Emergency (ER) | payer OTHER ==
[2021-01-21 09:20] VITALS: TEMP 98.1
[2021-01-21] MEDS ORDERED: SODIUM CHLORIDE 0.9% 500 ML 500 ML IV STA (09:53)
--- NOTE | 2021-01-21 10:15 | ED ---
General Adult HPI - General Chief complaint: Vaginal Bleeding Stated complaint: 9 wks preg/vaginal bleeding Time Seen by Provider: 01/21/21 09:37 Source: patient Limitations: no limitations - History of Present Illness Initial comments: 25-year-old female currently 9 weeks with a past medical history of asthma presents to the emergency room for a chief complaint of vaginal bleeding. Patient states she started to have light vaginal bleeding this morning. Patient admits to some abdominal cramping as well. Patient denies any vomiting diarrhea. Denies lightheadedness. Patient denies any heavy bleeding or passing clots.Patient has no other complaints at this time including shortness of breath, chest pain, nausea or vomiting, headache, or visual changes. - Related Data Home Medications Medication Instructions Recorded Confirmed Albuterol Sulfate [Proair Hfa] 1 - 2 puff INHALATION RT-Q6H PRN 01/21/21 01/21/21 Sertraline [Zoloft] 50 mg PO DAILY 01/21/21 01/21/21 Venlafaxine HCl [Effexor] 37.5 mg PO DAILY 01/21/21 01/21/21 traZODone HCL [Desyrel] 50 mg PO HS 01/21/21 01/21/21 Allergies Allergy/AdvReac Type Severity Reaction Status Date / Time cat dander Allergy Unknown Verified 01/21/21 09:56 dandelion (Taraxacum Allergy Unknown Verified 01/21/21 09:56 officinale) dog dander Allergy Unknown Verified 01/21/21 09:56 grass pollen Allergy Unknown Verified 01/21/21 09:56 mold Allergy Unknown Verified 01/21/21 09:56 oak Allergy Unknown Verified 01/21/21 09:56 peanut Allergy Unknown Verified 01/21/21 09:56 peas Allergy Unknown Verified 01/21/21 09:56 pine nut Allergy Unknown Verified 01/21/21 09:56 DUST Allergy Unknown Uncoded 10/29/20 13:41 PINE TREES Allergy Unknown Uncoded 10/29/20 13:41 Review of Systems ROS Statement: Those systems with pertinent positive or pertinent negative responses have been documented in the HPI. ROS Other: All systems not noted in ROS Statement are negative. Past Medical History Past Medical History: Asthma Additional Past Medical History / Comment(s): allergies History of Any Multi-Drug Resistant Organisms: None Reported Past Surgical History: Section Past Anesthesia/Blood Transfusion Reactions: No Reported Reaction Past Psychological History: No Psychological Hx Reported Smoking Status: Current some day smoker Past Alcohol Use History: None Reported Past Drug Use History: None Reported - Past Family History Mother Family Medical History: Asthma General Exam Limitations: no limitations General appearance: alert, in no apparent distress Head exam: Present: atraumatic, normocephalic, normal inspection Eye exam: Present: normal appearance, PERRL, EOMI. Absent: scleral icterus, conjunctival injection, periorbital swelling ENT exam: Present: normal exam, mucous membranes moist Neck exam: Present: normal inspection, full ROM. Absent: tenderness Respiratory exam: Present: normal lung sounds bilaterally. Absent: respiratory distress, wheezes Cardiovascular Exam: Present: regular rate, normal rhythm, normal heart sounds GI/Abdominal exam: Present: soft, normal bowel sounds. Absent: distended, tenderness, guarding, rebound, rigid Course Vital Signs 01/21/21 09:18 Temperature 98.1 F Pulse Rate 59 L Respiratory 16 Rate Blood Pressure 95/57 O2 Sat by Pulse 100 Oximetry Medical Decision Making - Medical Decision Making 25-year-old female presents for vaginal bleeding. Patient states she is about 9 weeks . Patient was seen at [facility] clinic on January 01 and did have a normal intrauterine with a heart rate of 103 which I did confirm over phone after I obtained patient's permission. CBC CMP unremarkable. HCG Quant is 15,000. Urinalysis is unremarkable. I did request to do a pelvic exam several times the patient refuses stating she does not want this done. ultrasound showed findings of normal intrauterine not identified. There is a oval lesion within the uterus that could be abnormal gestational sac. There is a suspected 4 mm pole. As discussed I did confirm the patient had a previous intrauterine with a heart rate of 103. This case was discussed with Dr. Mares who reviewed the ultrasound. He feels that patient should repeat her hCG on the and he will see her on the . She arty has an appointment scheduled that day. If she has any worsening symptoms such as worsening bleeding she will return to the emergency room. Patient was given RhoGAM given her negative blood type. - Lab Data Result diagrams: 01/21/21 10:07 01/21/21 10:07 Lab Results 01/21/21 01/21/21 01/21/21 Range/Units 10:00 10:07 10:07 WBC 5.5 (3.8-10.6) k/uL RBC 4.35 (3.80-5.40) m/uL Hgb 13.1 (11.4-16.0) gm/dL Hct 39.5 (34.0-46.0) % MCV 90.7 (80.0-100.0) fL MCH 30.1 (25.0-35.0) pg MCHC 33.2 (31.0-37.0) g/dL RDW 12.4 (11.5-15.5) % Plt Count 164 (150-450) k/uL MPV 9.8 Neutrophils % 50 % Lymphocytes % 39 % Monocytes % 5 % Eosinophils % 4 % Basophils % 0 % Neutrophils # 2.8 (1.3-7.7) k/uL Lymphocytes # 2.1 (1.0-4.8) k/uL Monocytes # 0.3 (0-1.0) k/uL Eosinophils # 0.2 (0-0.7) k/uL Basophils # 0.0 (0-0.2) k/uL Sodium (137-145) mmol/L Potassium (3.5-5.1) mmol/L Chloride (98-107) mmol/L Carbon Dioxide (22-30) mmol/L Anion Gap mmol/L BUN (7-17) mg/dL Creatinine (0.52-1.04) mg/dL Est GFR (CKD-EPI)AfAm (>60 ml/min/1.73 sqM) Est GFR (CKD-EPI)NonAf (>60 ml/min/1.73 sqM) Glucose (74-99) mg/dL Calcium (8.4-10.2) mg/dL Total Bilirubin (0.2-1.3) mg/dL AST (14-36) U/L ALT (4-34) U/L Alkaline Phosphatase (38-126) U/L Total Protein (6.3-8.2) g/dL Albumin (3.5-5.0) g/dL HCG, Quant mIU/mL Urine Color Light Yellow Urine Appearance Clear (Clear) Urine pH 6.5 (5.0-8.0) Ur Specific [place] 1.018 (1.001-1.035) Urine Protein Negative (Negative) Urine Glucose (UA) Negative (Negative) Urine Ketones Negative (Negative) Urine Blood Moderate H (Negative) Urine Nitrite Negative (Negative) Urine Bilirubin Negative (Negative) Urine Urobilinogen <2.0 (<2.0) mg/dL Ur Leukocyte Esterase Trace H (Negative) Urine RBC 4 (0-5) /hpf Urine WBC 3 (0-5) /hpf Ur Squamous Epith Cells 2 (0-4) /hpf Urine Bacteria Rare H (None) /hpf Hyaline Casts 1 (0-2) /lpf Urine Mucus Rare H (None) /hpf Blood Type A Negative Blood Type Recheck A Neg Bld Type Recheck Status No 01/21/21 Range/Units 10:07 WBC (3.8-10.6) k/uL RBC (3.80-5.40) m/uL Hgb (11.4-16.0) gm/dL Hct (34.0-46.0) % MCV (80.0-100.0) fL MCH (25.0-35.0) pg MCHC (31.0-37.0) g/dL RDW (11.5-15.5) % Plt Count (150-450) k/uL MPV Neutrophils % % Lymphocytes % % Monocytes % % Eosinophils % % Basophils % % Neutrophils # (1.3-7.7) k/uL Lymphocytes # (1.0-4.8) k/uL Monocytes # (0-1.0) k/uL Eosinophils # (0-0.7) k/uL Basophils # (0-0.2) k/uL Sodium 137 (137-145) mmol/L Potassium 4.3 (3.5-5.1) mmol/L Chloride 105 (98-107) mmol/L Carbon Dioxide 26 (22-30) mmol/L Anion Gap 6 mmol/L BUN 9 (7-17) mg/dL Creatinine 0.52 (0.52-1.04) mg/dL Est GFR (CKD-EPI)AfAm >90 (>60 ml/min/1.73 sqM) Est GFR (CKD-EPI)NonAf >90 (>60 ml/min/1.73 sqM) Glucose 88 (74-99) mg/dL Calcium 9.3 (8.4-10.2) mg/dL Total Bilirubin 0.1 L (0.2-1.3) mg/dL AST 16 (14-36) U/L ALT 8 (4-34) U/L Alkaline Phosphatase 45 (38-126) U/L Total Protein 7.0 (6.3-8.2) g/dL Albumin 4.1 (3.5-5.0) g/dL HCG, Quant 42896.7 mIU/mL Urine Color Urine Appearance (Clear) Urine pH (5.0-8.0) Ur Specific [place] (1.001-1.035) Urine Protein (Negative) Urine Glucose (UA) (Negative) Urine Ketones (Negative) Urine Blood (Negative) Urine Nitrite (Negative) Urine Bilirubin (Negative) Urine Urobilinogen (<2.0) mg/dL Ur Leukocyte Esterase (Negative) Urine RBC (0-5) /hpf Urine WBC (0-5) /hpf Ur Squamous Epith Cells (0-4) /hpf Urine Bacteria (None) /hpf Hyaline Casts (0-2) /lpf Urine Mucus (None) /hpf Blood Type Blood Type Recheck Bld Type Recheck Status Disposition Clinical Impression: Vaginal bleeding Narrative: suspected miscarriage Disposition: TRANSFER TO PSYCH HOSP/UNIT Condition: Good Instructions (If sedation given, give patient instructions): Miscarriage (ED) Additional Instructions: Please repeat your blood work on the . Attend your appointment with Dr. Mares on the . If you start to have worsening abdominal pain or vaginal bleeding you must return to the emergency room. Is patient prescribed a controlled substance at d/c from ED?: No Referrals: Andrew Loja DO [Primary Care Provider] - 1-2 days Time of Disposition: 12:21
[2021-01-21 10:23] LABS: Basophils % (A) 0 %; Eosinophils # (A) 0.2 k/uL (0-0.7); Eosinophils % (A) 4 %; HCT 39.5 % (34.0-46.0); HGB 13.1 gm/dL (11.4-16.0); Lymphocytes # (A) 2.1 k/uL (1.0-4.8); Lymphocytes % (A) 39 %; MCH 30.1 pg (25.0-35.0); MCHC 33.2 g/dL (31.0-37.0); MCV 90.7 fL (80.0-100.0); Mean Platelet Volume 9.8; Monocytes # (A) 0.3 k/uL (0-1.0); Monocytes % (A) 5 %; Neutrophils # (A) 2.8 k/uL (1.3-7.7); Neutrophils % (A) 50 %; Platelet Count 164 k/uL (150-450); RBC 4.35 m/uL (3.80-5.40); RDW 12.4 % (11.5-15.5); WBC 5.5 k/uL (3.8-10.6)
[2021-01-21 10:28] LABS: ALT 8 U/L (4-34); AST 16 U/L (14-36); African American GFR (CKD) >90 (>60 ml/min/1.73 sqM); Albumin 4.1 g/dL (3.5-5.0); Alkaline Phosphatase 45 U/L (38-126); Anion Gap 6 mmol/L; Appearance,Urine Clear (Clear); Bacteria,Urine Rare /hpf; Bilirubin,Urine Negative (Negative); Blood Urea Nitrogen 9 mg/dL (7-17); Blood,Urine Moderate (Negative); Calcium 9.3 mg/dL (8.4-10.2); Carbon Dioxide 26 mmol/L (22-30); Chloride 105 mmol/L (98-107); Color,Urine Light Yellow; Glucose 88 mg/dL (74-99); Glucose,Urine (UA) Negative (Negative); Hyaline Casts,Urine 1 /lpf (0-2); Ketones,Urine Negative (Negative); Leukocyte Esterase,Urine Trace (Negative); Mucus,Urine Rare /hpf; Nitrite,Urine Negative (Negative); Non-African American GFR(CKD) >90 (>60 ml/min/1.73 sqM); PH, Urine 6.5 (5.0-8.0); Potassium 4.3 mmol/L (3.5-5.1); Protein,Urine Negative (Negative); RBC,Urine 4 /hpf (0-5); Sodium 137 mmol/L (137-145); Specific Gravity,Urine 1.018 (1.001-1.035); Squamous Epithelial Cell,Urine 2 /hpf (0-4); Total Bilirubin 0.1 mg/dL (0.2-1.3); Urobilinogen,Urine <2.0 mg/dL (<2.0); WBC,Urine 3 /hpf (0-5)
--- NOTE | 2021-01-21 10:57 | US ---
EXAMINATION TYPE: Transabdominal DATE OF EXAM: 01/21/2021 10:43 AM COMPARISON: NONE CLINICAL HISTORY: pain. Spotting and pelvic cramping x 1 day, 2, para 1, history of EXAM PERFORMED: Transabdominal (TA) EXAM MEASUREMENTS: GESTATIONAL AGE / DATING Physician Established: Not yet established Dates by LMP: LMP unknown Dates by First Scan: No previous this is first scan Dates by Current Scan for: (6 weeks/4 days) EDC: 09/12/2021 MATERNAL ANATOMY Uterus: 9.7 x 5.6 x 6.5cm, anteverted Right Ovary: 2.2 x 1.3 x 1.7cm Left Ovary: 2.3 x 1.6 x 2.0cm Post CDS / Adnexa: wnl Presence of free fluid: no Presence of corpus luteal cyst: left ovary: 1.7 x 1.1 x 1.4cm GESTATION / SURVEY CRL: 0.4cm (6 weeks/1 days) MSD: 2.4cm (7 weeks/0 days) Yolk Sac (normal less than 6mm): Normal not seen IUP: Demise Date of LMP: Unknown Beta HcG (if available): Not available at time of exam Possible pole seen, absent heart tones Heterogeneous anteverted uterus. There is oval 1.9 x 2.7 x 2.5 cm lesion within uterus. If gestationa l sac this is abnormal. No significant surrounding decidual reaction noted. There is a suspected 4 mm pole with abnormal round anechoic adjacent structure could be abnormal yolk sac. No free fluid . Both ovaries seen without extraovarian adnexal mass. IMPRESSION: Findings of normal intrauterine not identified. Findings could reflect spontane ous versus too early to visualize intrauterine . Ectopic is not excluded. Serial beta hCG and ultrasound follow-up advised.
[2021-01-21 11:23] LABS: HCG,Quantitative Serum 15579.7 mIU/mL
[2021-01-21] MEDS ORDERED: Rhogam IMMUNE GLOBULIN 1,500 UNIT/1 ML IM STA (11:23)
[2021-01-21 12:31] VITALS: BP 100/56; PULSE 56; RESP 18
== END 2021-01-21 12:34 ==
LOC: EC 09:17
DX: O20.9 Hemorrhage in early pregnancy, unspecified (principal); O99.511 Diseases of the respiratory system complicating pregnancy, first trimester; O99.331 Smoking (tobacco) complicating pregnancy, first trimester; J45.909 Unspecified asthma, uncomplicated; F17.200 Nicotine dependence, unspecified, uncomplicated; Z3A.09 9 weeks gestation of pregnancy
CPT/HCPCS: 36415; 86900; 86901; 80053; 85025; 81001; 84702; 76801; 99285; 96372; J2791

== ENCOUNTER 2021-01-22 08:45 | Emergency (ER) | payer OTHER ==
[2021-01-22 08:57] VITALS: BP 106/65; PULSE 67; RESP 18; TEMP 98.7
--- NOTE | 2021-01-22 09:22 | ED ---
Female Urogenital HPI - General Chief complaint: Urogenital Stated complaint: Poss miscarriage/9 wks Time Seen by Provider: 01/22/21 09:10 Source: patient, RN notes reviewed Mode of arrival: ambulatory Limitations: no limitations - History of Present Illness Initial comments: This a 25-year-old female presents emergency Department with chief complaint of a miscarriage. Patient states she was seen here yesterday and ultrasound which showed evidence of no heartbeat she had prior ultrasound that did show heartbeat.. PATIENT STATES SHE WAS DISCHARGED AND WAS ADVISED FOLLOW-UP DR. Vredin IN ONE WEEK. PATIENT STATES THAT SHE HAD INCREASING PAIN TO THE NIGHT AND SHE PRESENTED TO [facility]. PATIENT RECEIVED MORPHINE there and discharge. Patient states she went home and pass products this conception. Patient states the bleeding is mild she has essentially no pain at this time. Patient offers no complaints. - Related Data Home Medications Medication Instructions Recorded Confirmed Albuterol Sulfate [Proair Hfa] 1 - 2 puff INHALATION RT-Q6H PRN 01/21/21 01/21/21 Sertraline [Zoloft] 50 mg PO DAILY 01/21/21 01/21/21 Venlafaxine HCl [Effexor] 37.5 mg PO DAILY 01/21/21 01/21/21 traZODone HCL [Desyrel] 50 mg PO HS 01/21/21 01/21/21 Allergies Allergy/AdvReac Type Severity Reaction Status Date / Time cat dander Allergy Unknown Verified 01/22/21 08:57 dandelion (Taraxacum Allergy Unknown Verified 01/22/21 08:57 officinale) dog dander Allergy Unknown Verified 01/22/21 08:57 grass pollen Allergy Unknown Verified 01/22/21 08:57 mold Allergy Unknown Verified 01/22/21 08:57 oak Allergy Unknown Verified 01/22/21 08:57 peanut Allergy Unknown Verified 01/22/21 08:57 peas Allergy Unknown Verified 01/22/21 08:57 pine nut Allergy Unknown Verified 01/22/21 08:57 DUST Allergy Unknown Uncoded 01/22/21 08:57 PINE TREES Allergy Unknown Uncoded 01/22/21 08:57 Review of Systems ROS Statement: Those systems with pertinent positive or pertinent negative responses have been documented in the HPI. ROS Other: All systems not noted in ROS Statement are negative. Past Medical History Past Medical History: Asthma Additional Past Medical History / Comment(s): allergies History of Any Multi-Drug Resistant Organisms: None Reported Past Surgical History: Section Past Anesthesia/Blood Transfusion Reactions: No Reported Reaction Past Psychological History: No Psychological Hx Reported Smoking Status: Former smoker Past Alcohol Use History: None Reported Past Drug Use History: None Reported - Past Family History Mother Family Medical History: Asthma General Exam Limitations: no limitations General appearance: alert, in no apparent distress Head exam: Present: atraumatic, normocephalic, normal inspection Respiratory exam: Present: normal lung sounds bilaterally. Absent: respiratory distress, wheezes, rales, rhonchi, stridor Cardiovascular Exam: Present: regular rate, normal rhythm, normal heart sounds. Absent: systolic murmur, diastolic murmur, rubs, gallop, clicks GI/Abdominal exam: Present: soft, normal bowel sounds. Absent: distended, tenderness, guarding, rebound, rigid Course Vital Signs 01/22/21 08:55 Temperature 98.7 F Pulse Rate 67 Respiratory 18 Rate Blood Pressure 106/65 O2 Sat by Pulse 99 Oximetry Medical Decision Making - Medical Decision Making Patient does have a miscarriage bleeding is controlled, patient is having essentially no pain but stable. Patient will follow-up with [facility]. Disposition Clinical Impression: Miscarriage Disposition: HOME SELF-CARE Condition: Stable Instructions (If sedation given, give patient instructions): Miscarriage (ED) Additional Instructions: Please return to the Emergency Department if symptoms worsen or any other concerns. Is patient prescribed a controlled substance at d/c from ED?: No Referrals: Andrew Loja DO [Primary Care Provider] - 1-2 days Evan Verdin DO [Doctor of Osteopathic Medicine] - 1-2 days Time of Disposition: 09:22
== END 2021-01-22 10:05 | disposition home or self-care (01) ==
LOC: EC 08:45
DX: O03.9 Complete or unspecified spontaneous abortion without complication (principal); J45.909 Unspecified asthma, uncomplicated; Z79.891 Long term (current) use of opiate analgesic; Z79.899 Other long term (current) drug therapy; Z91.048 Other nonmedicinal substance allergy status; Z91.010 Allergy to peanuts; Z91.018 Allergy to other foods
CPT/HCPCS: 99283

== ENCOUNTER 2021-01-27 10:30 | Inpatient (IN) | payer MEDICAID, OTHER ==
--- NOTE | 2021-01-27 11:09 | ED ---
Psych HPI - General Source: patient, RN notes reviewed Mode of arrival: ambulatory <Fam Ramirez - Last Filed: 01/27/21 11:08> - General Source: patient, family, RN notes reviewed Mode of arrival: ambulatory Limitations: no limitations <Chas Sales - Last Filed: 01/27/21 15:45> - General Chief Complaint: Psychiatric Symptoms Stated Complaint: Mental Health - History of Present Illness Initial Comments: Patient is a 25-year-old female recently found out she miscarried, stepfather states she has not been taking her bipolar medication in stated that she needs to go to [address]. patient uncooperative with exam and interview flat affect. (Fam Bae) Patient is a pleasant 25-year-old female presenting to the emergency Department with family for depression. Patient has history of bipolar and has been off her medications recently. Patient also has recent miscarriage. Patient is not sleeping. Patient is not eating well. No reported suicidal thoughts. Patient was recently at another facility with depression. Patient went wandering today and did not return phone calls. Patient denies alcohol or street drug use. (Chas Sales) - Related Data Home Medications Medication Instructions Recorded Confirmed Albuterol Sulfate [Proair Hfa] 1 - 2 puff INHALATION RT-Q6H PRN 01/21/21 01/27/21 Sertraline [Zoloft] 50 mg PO DAILY 01/21/21 01/27/21 Venlafaxine HCl [Effexor] 37.5 mg PO DAILY 01/21/21 01/27/21 traZODone HCL [Desyrel] 50 mg PO HS 01/21/21 01/27/21 Allergies Allergy/AdvReac Type Severity Reaction Status Date / Time cat dander Allergy Unknown Verified 01/27/21 12:21 dandelion (Taraxacum Allergy Unknown Verified 01/27/21 12:21 officinale) dog dander Allergy Unknown Verified 01/27/21 12:21 grass pollen Allergy Unknown Verified 01/27/21 12:21 mold Allergy Unknown Verified 01/27/21 12:21 oak Allergy Unknown Verified 01/27/21 12:21 peanut Allergy Unknown Verified 01/27/21 12:21 peas Allergy Unknown Verified 01/27/21 12:21 pine nut Allergy Unknown Verified 01/27/21 12:21 DUST Allergy Unknown Uncoded 01/27/21 11:05 PINE TREES Allergy Unknown Uncoded 01/27/21 11:05 Review of Systems ROS Other: All systems not noted in ROS Statement are negative. <Fam Ramirez - Last Filed: 01/27/21 11:08> ROS Other: All systems not noted in ROS Statement are negative. Constitutional: Denies: fever Eyes: Denies: eye pain ENT: Denies: ear pain Respiratory: Denies: cough Cardiovascular: Denies: chest pain Endocrine: Denies: fatigue Gastrointestinal: Denies: abdominal pain Genitourinary: Denies: dysuria Musculoskeletal: Denies: back pain Skin: Denies: rash Neurological: Denies: headache Psychiatric: Reports: depression <Chas Sales - Last Filed: 01/27/21 15:45> ROS Statement: Those systems with pertinent positive or pertinent negative responses have been documented in the HPI. Past Medical History Past Medical History: Asthma Additional Past Medical History / Comment(s): allergies History of Any Multi-Drug Resistant Organisms: None Reported Past Surgical History: Section Past Anesthesia/Blood Transfusion Reactions: No Reported Reaction Past Psychological History: No Psychological Hx Reported Smoking Status: Former smoker Past Alcohol Use History: None Reported Past Drug Use History: None Reported - Past Family History Mother Family Medical History: Asthma <Fam Ramirez - Last Filed: 01/27/21 11:08> General Exam Limitations: no limitations General appearance: alert, in no apparent distress Head exam: Present: atraumatic, normocephalic, normal inspection Respiratory exam: Present: normal lung sounds bilaterally. Absent: respiratory distress, wheezes, rales, rhonchi, stridor Cardiovascular Exam: Present: regular rate, normal rhythm, normal heart sounds. Absent: systolic murmur, diastolic murmur, rubs, gallop, clicks GI/Abdominal exam: Present: soft, normal bowel sounds. Absent: distended, tenderness, guarding, rebound, rigid Extremities exam: Present: normal inspection, full ROM, normal capillary refill. Absent: tenderness, pedal edema, joint swelling, calf tenderness Neurological exam: Present: alert, oriented X3, CN II-XII intact Psychiatric exam: Present: depressed, flat affect Skin exam: Present: warm, dry, intact, normal color. Absent: rash <Fam Ramirez - Last Filed: 01/27/21 11:08> Limitations: no limitations General appearance: in no apparent distress Head exam: Present: atraumatic Eye exam: Present: normal appearance Neck exam: Present: normal inspection Respiratory exam: Present: normal lung sounds bilaterally Cardiovascular Exam: Present: regular rate, normal rhythm GI/Abdominal exam: Present: soft. Absent: tenderness Extremities exam: Present: normal inspection Neurological exam: Present: alert Psychiatric exam: Present: flat affect Skin exam: Present: normal color <Chas Sales - Last Filed: 01/27/21 15:45> Course Vital Signs 01/27/21 11:00 Temperature 98.7 F Pulse Rate 63 Respiratory 18 Rate Blood Pressure 119/73 O2 Sat by Pulse 95 Oximetry Medical Decision Making <Chas Sales - Last Filed: 01/27/21 15:45> - Medical Decision Making Patient was seen by mental health services with plans for admission (Chas Sales) Disposition <Fam Ramirez - Last Filed: 01/27/21 11:08> Is patient prescribed a controlled substance at d/c from ED?: No Decision Time: 15:45 <Chas Sales - Last Filed: 01/27/21 15:45> Clinical Impression: Bipolar disorder Disposition: TRANSFER TO PSYCH HOSP/UNIT Referrals: Andrew Loja DO [Primary Care Provider] - 1-2 days
[2021-01-27] MEDS ORDERED: ACETAMINOPHEN TAB 325 MG TAB PO STA (15:54)
[2021-01-27 17:58] LABS: Amphetamine Screen,Urine Not Detected (NotDetected); Barbiturate Screen,Urine Not Detected (NotDetected); Benzodiazepines Screen,Urine Not Detected (NotDetected); Cocaine Screen,Urine Not Detected (NotDetected); Methadone Screen, Urine Not Detected (NotDetected); Opiate Screen,Urine Not Detected (NotDetected); Oxycodone Screen, Urine Not Detected (NotDetected); Phencyclidine Screen,Urine Not Detected (NotDetected); Tricyclic Antidepressant,Urine Not Detected (NotDetected); Urn Cannabinoid Scrn Detected (NotDetected)
[2021-01-27] MEDS ORDERED: ALBUTEROL HFA INHALER INHALATION PRN (18:57)
[2021-01-27] MEDS ORDERED: MAGNESIUM HYDROXIDE 2,400 MG/10 ML CUP PO PRN (19:05)
[2021-01-27] MEDS ORDERED: MAG HYDROX/AL HYDROX/SIMETH 30 ML CUP PO PRN (19:05)
[2021-01-27] MEDS ORDERED: HALOPERIDOL LACTATE 5 MG/ML 1 ML VIAL IM PRN (19:19)
[2021-01-27] MEDS ORDERED: LORazepam 2 MG/ML INJ IM PRN (19:19)
[2021-01-27] MEDS: ACETAMINOPHEN TAB 325 MG TAB PO PRN ×2 (20:33→23:39)
[2021-01-27] MEDS ORDERED: traZODone HCL 50 MG TAB PO SCH (21:00)
[2021-01-27] MEDS: haloperidoL 5 MG TAB PO PRN (21:27)
[2021-01-27] MEDS: LORazepam 1 MG TAB PO PRN (23:39)
[2021-01-28] MEDS: VENLAFAXINE HCL 37.5 MG TAB PO SCH (08:19)
--- NOTE | 2021-01-28 11:34 | P.HP ---
Psychiatric H&P - . H&P Date: 01/28/21 History & Physical: Allergies Allergy/AdvReac Type Severity Reaction Status Date / Time cat dander Allergy Unknown Verified 01/27/21 12:21 dandelion (Taraxacum Allergy Unknown Verified 01/27/21 12:21 officinale) dog dander Allergy Unknown Verified 01/27/21 12:21 grass pollen Allergy Unknown Verified 01/27/21 12:21 mold Allergy Unknown Verified 01/27/21 12:21 oak Allergy Unknown Verified 01/27/21 12:21 peanut Allergy Unknown Verified 01/27/21 12:21 peas Allergy Unknown Verified 01/27/21 12:21 pine nut Allergy Unknown Verified 01/27/21 12:21 DUST Allergy Unknown Uncoded 01/27/21 11:05 PINE TREES Allergy Unknown Uncoded 01/27/21 11:05 Vital Signs Temp 98.4 F 01/27/21 19:40 Pulse 62 01/27/21 19:40 Resp 16 01/27/21 19:40 BP 103/65 01/27/21 19:40 Pulse Ox 98 01/27/21 19:27 Intake & Output 01/27/21 01/28/21 01/28/21 18:59 06:59 18:59 Weight 54.431 kg 53.5 kg Laboratory Last Values HCG, Quant 303.4 mIU/mL 01/28/21 07:16 Urine HCG, Qual Detected (Not Detectd) 01/27/21 17:37 Urine Opiates Screen Not Detected (NotDetected) 01/27/21 17:37 Ur Oxycodone Screen Not Detected (NotDetected) 01/27/21 17:37 Urine Methadone Screen Not Detected (NotDetected) 01/27/21 17:37 Ur Propoxyphene Screen Not Detected (NotDetected) 01/27/21 17:37 Ur Barbiturates Screen Not Detected (NotDetected) 01/27/21 17:37 U Tricyclic Antidepress Not Detected (NotDetected) 01/27/21 17:37 Ur Phencyclidine Scrn Not Detected (NotDetected) 01/27/21 17:37 Ur Amphetamines Screen Not Detected (NotDetected) 01/27/21 17:37 U Methamphetamines Scrn Not Detected (NotDetected) 01/27/21 17:37 U Benzodiazepines Scrn Not Detected (NotDetected) 01/27/21 17:37 Urine Cocaine Screen Not Detected (NotDetected) 01/27/21 17:37 U Marijuana (THC) Screen Detected (NotDetected) H 01/27/21 17:37 Coronavirus (PCR) Not Detected (Not Detectd) 01/27/21 16:26 01/28/21 11:27 IDENTIFYING DATA: Patient is a 25-year-old female who currently lives alone in an apartment is single and has 1 daughter. She is currently unemployed. HPI: Patient presented to the hospital yesterday to the ER after she apparently found out that she had miscarried a . Patient apparently was uncooperative and had a flat affect in the ER. According to ER report patient's boyfriend stated that patient had not been taking her medications and had been having poor sleep and poor appetite. Patient's UDS was positive for THC and had a positive beta hCG test which was detected however the quantitative level had dropped to 303 since previously obtained on 01/21 which was 15,579. Patient was recently discharged from the mental health unit in early November 2020. At that time patient was discharged on trazodone and Effexor for major depressive disorder. Patient was seen today by underwriter mortgage loan laying down in her bed and was appearing to be lethargic however was awoken and spoke with underwriter mortgage loan in the office. She has a poverty of content and speech today and has a flat affect. She states that she was feeling tired once again and states that she has not been taking her medications for several weeks. She states that she took to stop taking her medications because she believed that she was . Patient today believes once again that she was and that nobody had told her that she had a miscarriage. She claims that she has been feeling depressed and tired and when asked about stressors she was fairly vague and guarded. Patient had a soft tone of voice and appeared to be constricted in her affect. She denies any paranoia at this time. Patient was mildly delusional thinking that she was still and had no concern when underwriter mortgage loan explained that she had a misscairage. She is denying any anxiety at this time. She states that her dad brought her into the hospital and that she was stating that she was " overdramatic" and was requesting to go back home today. She claims that her sleep is poor. Patient denies any suicidal or homicidal ideations intent or plan. At this time patient denies any auditory or visual hallucinations. Patient denies any flight of ideas racing thoughts and increased in goal directed behavior. Patient admits to using occasional marijuana and denies any other recreational drug use. She is denying any cigarette use. PAST PSYCHIATRIC HISTORY: Patient states that she has a history of depression and anxiety. Patient was previously on Abilify Maintenna, Effexor, trazodone in the past. Patient's last hospitalization to the mental health unit was early November 2020. Patient states that she has been following up with [facility]. Patient denies any history of suicide attempts in the past. PMH: Asthma ALLERGIES: as per EMR CHEMICAL DEPENDENCY HISTORY: as per HPI FAMILY PSYCHIATRIC/SUBSTANCE USE HISTORY: Mother suffers from depression. SOCIAL HISTORY: Patient was born and raised in [facility]. Patient currently lives alone in apartment is single has 1 daughter and is currently unemployed. She states that she completed high school. She denies ever being to care home or penitentiary in the past. MENTAL STATUS EXAM: General Appearance: Patient appears to be short in stature, thin stated age is alert, constricted, isolative. Patient appears to have poor hygiene and grooming. Behavior: Patient is seated without any agitated behavior. vague and guarded. Speech: Patient's speech is fluent and nonpressured. [place]. Mood/Affect: Patient reports their mood is depressed, affect is congruent and constricted. Suicidality/Homicidality: Patient denies having any homicidal ideation intent or plan. Denies any suicidal ideations intent or plan Perceptions: Patient denies any visual hallucinations and denies any auditory hallucinations Though content/process: Patient is concrete, has poverty of content. Not endorsing any delusions or paranoia. Memory and concentration: AOX3, grossly intact for the purposes of this session. Can spell "WORLD" backwards Judgment and insight: poor STRENGTHS/WEAKNESSES: strength is that patient is resilient. Weakness is that patient has poor judgment and poor social support INTELLECT: average IMPRESSIONS: Major depressive disorder, recurrent, severe with psychotic features Cannabis use disorder PLAN: -Patient is admitted under voluntary status to MHU for stabilization of psychiatric symptoms and safety. Patient has signed adult voluntary form and medication consent and is placed in patient's chart. -Medications : Will start patient on Effexor 37.5 mg daily for mood/anxiety and titrate up as needed. d/c trazodone and replaced with seroquel 50mg hs for psychosis/insomnia/mood adjunct. -Ativan and Haldol PRN for agitation/aggression -Patient was counselled on substance abuse and desired to cut back on use -Patient was informed of the risks, benefits and side effects of the medication and patient verbally consented to taking the medications. Patient signed med consent form and was placed in chart. -Internal Medicine consult to perform medical evaluation and physical. -NRT - not needed as patient does not smoke -SW on board for discharge planning. Encourage patient to participate in groups to work on coping skills. Will hold off on filing the demand for hearing as patient is currently on a deferral and states that she stopped taking the meds due to beleiving that she was .
[2021-01-28] MEDS: ACETAMINOPHEN TAB 325 MG TAB PO PRN (11:48)
[2021-01-28] MEDS: ALBUTEROL INHALER 60 PUFF/8 GM INHALER (MHU) INHALATION PRN ×2 (15:50→21:24)
[2021-01-28] MEDS: LORazepam 1 MG TAB PO PRN ×2 (15:59→21:40)
--- NOTE | 2021-01-28 20:07 | P.CONS ---
History of Present Illness - History of Present Illness Note: The holding encounter included physical examination done in the presents of the bed side nurse This is a 25 years old femalephj With past medical history of asthma and ALLERGIES. His admitted to the mental health unit with signs and symptoms of major depressive disorder and severe psychotic features. Medical consult was requested for routine medical management. Patient is with positive urine hCG and serum SCG of 303.4. She States that this is her second . Patient states that she supposed to see Dr. Verdin today as she has appointment for first time visit. She is complaining of from lower abdominal pain at times but by the time of my encounter states that her abdominal pain has gone no. Also she is complaining of from few clots per vagina as she describes without itching or other discharge. She denies nausea vomiting, no diarrhea or constipation, no urinary complaints or dysuria or urgency or hesitancy. No fever. No chest pain or dyspnea or headache or weakness or numbness. Patient denies smoking or alcohol, also she denies illicit drug abuse although her urine drug test was positive for marijuana. Hemodynamically is stable. Coronavirus was tested in the emergency room and was not detected. Review of Systems CONSTITUTIONAL: No fever, no malaise, no fatigue. HEENT: No recent visual problems or hearing problems. Denied any sore throat. CARDIOVASCULAR: No orthopnea, PND, no palpitations, no syncope. PULMONARY: No shortness of breath, no cough, no hemoptysis. GASTROINTESTINAL: No diarrhea, no nausea, no vomiting, no abdominal pain. Normoactive bowel sounds. NEUROLOGICAL: No headaches, no weakness, no numbness. HEMATOLOGICAL: Denies any bleeding or petechiae. GENITOURINARY: Denies any burning micturition, frequency, or urgency. MUSCULOSKELETAL/RHEUMATOLOGICAL: Denies any joint pain, swelling, or any muscle pain. ENDOCRINE: Denies any polyuria or polydipsia. Past Medical History Past Medical History: Asthma Additional Past Medical History / Comment(s): allergies History of Any Multi-Drug Resistant Organisms: None Reported Past Surgical History: Section Past Anesthesia/Blood Transfusion Reactions: No Reported Reaction Past Psychological History: No Psychological Hx Reported Smoking Status: Never smoker Past Alcohol Use History: None Reported Past Drug Use History: None Reported - Past Family History Mother Family Medical History: Asthma Medications and Allergies Home Medications Medication Instructions Recorded Confirmed Type Albuterol Sulfate [Proair Hfa] 1 - 2 puff INHALATION RT-Q6H PRN 01/21/21 01/27/21 History Sertraline [Zoloft] 50 mg PO DAILY 01/21/21 01/27/21 History Venlafaxine HCl [Effexor] 37.5 mg PO DAILY 01/21/21 01/27/21 History traZODone HCL [Desyrel] 50 mg PO HS 01/21/21 01/27/21 History Allergies Allergy/AdvReac Type Severity Reaction Status Date / Time cat dander Allergy Unknown Verified 01/27/21 12:21 dandelion (Taraxacum Allergy Unknown Verified 01/27/21 12:21 officinale) dog dander Allergy Unknown Verified 01/27/21 12:21 grass pollen Allergy Unknown Verified 01/27/21 12:21 mold Allergy Unknown Verified 01/27/21 12:21 oak Allergy Unknown Verified 01/27/21 12:21 peanut Allergy Unknown Verified 01/27/21 12:21 peas Allergy Unknown Verified 01/27/21 12:21 pine nut Allergy Unknown Verified 01/27/21 12:21 DUST Allergy Unknown Uncoded 01/27/21 11:05 PINE TREES Allergy Unknown Uncoded 01/27/21 11:05 Physical Exam Vitals: Vital Signs Temp Pulse Pulse Resp BP BP Pulse Ox 01/27/21 19:40 98.4 F 62 16 103/65 01/27/21 19:27 98.4 F 70 16 103/65 98 01/27/21 11:00 98.7 F 63 18 119/73 95 Intake and Output 01/27/21 01/28/21 01/28/21 22:59 06:59 14:59 Other: Weight 53.5 kg GENERAL: The patient is alert and oriented x3, not in any acute distress. Well developed, well nourished. HEENT: Pupils are round and equally reacting to light. EOMI. No scleral icterus. No conjunctival pallor. Normocephalic, atraumatic. No pharyngeal erythema. No thyromegaly. CARDIOVASCULAR: S1 and S2 present. No murmurs, rubs, or gallops. PULMONARY: Chest is clear to auscultation, no wheezing or crackles. -ABDOMEN: Soft, nontender, lower abdomen is only mildly distended, normoactive bowel sounds. No palpable organomegaly. MUSCULOSKELETAL: No joint swelling or deformity. EXTREMITIES: No cyanosis, clubbing, or pedal edema. NEUROLOGICAL: Gross neurological examination did not reveal any focal deficits. SKIN: No rashes. No petechiae Results Labs: Abnormal Lab Results - Last 24 Hours (Table) 01/27/21 Range/Units 17:37 U Marijuana (THC) Screen Detected H (NotDetected) Assessment and Plan Assessment: -first trimester . Associated with episodes of lower abdominal pain and blood per vagina as patient describes, consult obstetrics service for management and medication review -Depression and other sac illnesses, management as per psychiatrist primary team -Asthma, not in active tissue -Substance abuse with marijuana, patient denies using substance. We recommend patient keep away from also assess especially during DVT prophylaxis: Earlier mobility Patient is recommended to follow-up with her PCP in one week after discharge and she was instructed with the same Thank you for consulting us, we will see the patient on as needed basis. Please call for any question
[2021-01-28] MEDS ORDERED: QUEtiapine 50 MG TAB PO SCH (21:00)
[2021-01-29] MEDS: VENLAFAXINE HCL 37.5 MG TAB PO SCH (08:29)
[2021-01-29] MEDS: LORazepam 1 MG TAB PO PRN ×2 (08:30→17:07)
[2021-01-29] MEDS: ACETAMINOPHEN TAB 325 MG TAB PO PRN ×2 (08:49→16:20)
--- NOTE | 2021-01-29 09:14 | P.OBCN ---
History of Present Illness Consult date: 01/29/21 Requesting physician: Andrew Borges Reason for consult: early problem Chief complaint: Suspected demise History of present illness: Jennifer is a 25-year-old female who was scheduled for a new OB visit with me yesterday but is admitted to the mental health ordered. I was consult and for care. It is noted that on the she had a beta hCG of 15,000 and then yesterday it was down to 300. Most likely this represents a spontaneous AB, but without an ultrasound to verify whether there is still products of conception in the uterus I cannot say if it is completed or not. There are 2 ways to go about managing this situation, 1 is to do an ultrasound and verify that there is no further products and or verify that there is nothing else hopefully that needs to be done to complete the process since were not sure how far along she actually was. The other is to do weekly quantitative serum hCG levels until the value was 0. A pelvic exam will offer no help in delineating this complete AB versus incomplete versus impending . Her vital signs otherwise have been stable from what I can tell. She is hemodynamically stable. She is in speaking with her anxious as she is being told by multiple physicians and staff that she is having miscarriage but she is in denial that that is happening area it seems like she understands better after my discussion with her with the fall in her level from 15,000 down to 300. It is noted that she had Jeyson james given for O negative blood type on January 21 as well. Past Medical History Past Medical History: Asthma Additional Past Medical History / Comment(s): allergies History of Any Multi-Drug Resistant Organisms: None Reported Past Surgical History: Section Past Anesthesia/Blood Transfusion Reactions: No Reported Reaction Past Psychological History: No Psychological Hx Reported Smoking Status: Never smoker Past Alcohol Use History: None Reported Past Drug Use History: None Reported - Past Family History Mother Family Medical History: Asthma Medications and Allergies Home Medications Medication Instructions Recorded Confirmed Type Albuterol Sulfate [Proair Hfa] 1 - 2 puff INHALATION RT-Q6H PRN 01/21/21 01/27/21 History Sertraline [Zoloft] 50 mg PO DAILY 01/21/21 01/27/21 History Venlafaxine HCl [Effexor] 37.5 mg PO DAILY 01/21/21 01/27/21 History traZODone HCL [Desyrel] 50 mg PO HS 01/21/21 01/27/21 History Allergies Allergy/AdvReac Type Severity Reaction Status Date / Time cat dander Allergy Unknown Verified 01/27/21 12:21 dandelion (Taraxacum Allergy Unknown Verified 01/27/21 12:21 officinale) dog dander Allergy Unknown Verified 01/27/21 12:21 grass pollen Allergy Unknown Verified 01/27/21 12:21 mold Allergy Unknown Verified 01/27/21 12:21 oak Allergy Unknown Verified 01/27/21 12:21 peanut Allergy Unknown Verified 01/27/21 12:21 peas Allergy Unknown Verified 01/27/21 12:21 pine nut Allergy Unknown Verified 01/27/21 12:21 DUST Allergy Unknown Uncoded 01/27/21 11:05 PINE TREES Allergy Unknown Uncoded 01/27/21 11:05 Exam Osteopathic Statement: *. No significant issues noted on an osteopathic structural exam other than those noted in the History and Physical/Consult.
--- NOTE | 2021-01-29 09:50 | P.PN ---
Progress Note - Text Progress Note Date: 01/29/21 (\) Interval History: Patient was seen [wandering the hallways] and was directable and agreeable to speak with brief writer in the office. Patient continues to have a soft tone of voice and a flat affect. She states that she is still feeling depressed and was fairly evasive and vague about her and her miscarriage. Patient claims that she was seen by the CLOCK MECHANIC this morning and will be going for an ultrasound today to rule out ectopic . She states that she is feeling fairly tired this morning and claims that she does not have much energy to go to any groups. She claims that she was only able to sleep approximately 3-4 hours last night and was agreeable to have her Seroquel increased. At this time patient denies any suicidal or homical ideations, intent or plan. Patient denies any auditory, visual hallucinations and denies any paranoia or delusions. Patient denies any side effects from the medications and has been compliant with meds. Mental Status Exam: General Appearance: Patient appears to be short in stature, thin stated age is alert, constricted, isolative. Patient appears to have improving hygiene and grooming. walking around with a blanket over her. Behavior: Patient is seated without any agitated behavior. vague and guarded. Speech: Patient's speech is fluent and nonpressured. [place]. Mood/Affect: Patient reports their mood is depressed, affect is congruent and constricted. Suicidality/Homicidality: Patient denies having any homicidal ideation intent or plan. Denies any suicidal ideations intent or plan Perceptions: Patient denies any visual hallucinations and denies any auditory hallucinations Though content/process: Patient is concrete, has poverty of content. Not endorsing any delusions or paranoia. Memory and concentration: AOX3, grossly intact for the purposes of this session Judgment and insight: poor, improving mildly Assessment Major depressive disorder, recurrent, severe with psychotic features Cannabis use disorder Plan: -Patient continues to meet criteria for inpatient psychiatric admission for symptom stabilization and safety. Patient has signed [adult voluntary form and] [medication consent] and was placed in patient's chart. -Medications: Increased Effexor XL 75 mg daily for mood/anxiety. Increase Seroquel to 75 mg daily at bedtime for psychosis/insomnia/mood adjunct. -When necessary Ativan and Haldol for agitation/aggression. -Patient was seen by CLOCK MECHANIC today and are requesting an ultrasound to rule out ectopic or to continue to trend beta-HCG until 0. -NRT - not needed as patient does not smoke -SW on board for discharge planning. Encouraged the patient to participate in milieu.
--- NOTE | 2021-01-29 13:13 | US ---
EXAMINATION TYPE: Transabdominal DATE OF EXAM: 01/29/2021 10:33 AM COMPARISON: Recent US CLINICAL HISTORY: R/O Miscarriage.. Pt states heavy vaginal bleeding x 1 week EXAM PERFORMED: Transabdominal (TA) TV not performed due to portable exam in mental health floor EXAM MEASUREMENTS: GESTATIONAL AGE / DATING Physician Established: Not yet established Dates by LMP: Unknown Dates by First Scan: (7 weeks/5 days) EDC: 09/12/2021 Dates by Current Scan for: No IUP seen at this time MATERNAL ANATOMY Uterus: 7.3 x 4.2 x 7.3 cm Right Ovary: 2.6 x 1.8 x 1.4 cm Left Ovary: 2.0 x 2.0 x 1.5 Post CDS / Adnexa: wnl Presence of free fluid: No Presence of corpus luteal cyst: No GESTATION / SURVEY IUP: No IUP seen at this time, Endo thickness= 0.7 cm Beta HcG (if available): Not available at this time No IUP visualized today as seen on prior exam IMPRESSION: No intrauterine identified
[2021-01-29] MEDS: ALBUTEROL INHALER 60 PUFF/8 GM INHALER (MHU) INHALATION PRN (17:04)
[2021-01-29] MEDS: QUEtiapine 25 MG TAB PO SCH (21:53)
[2021-01-29] MEDS: haloperidoL 5 MG TAB PO PRN (21:53)
[2021-01-30] MEDS: LORazepam 1 MG TAB PO PRN ×3 (03:41→20:47)
[2021-01-30] MEDS: ACETAMINOPHEN TAB 325 MG TAB PO PRN ×2 (03:41→14:22)
[2021-01-30] MEDS: VENLAFAXINE HCL ER 75 MG CAP PO SCH (09:05)
--- NOTE | 2021-01-30 11:02 | P.PN ---
Progress Note - Text Progress Note Date: 01/30/21 Interval History: Patient was seen lying in her bed this morning and was directable and agreeable to speak with board writer in the office. Patient continues to have a soft tone of voice and a flat affect. She states that she is feeling a bit better today with regard to her mood. She continues to have a poverty of content and is concrete. She states that her parents are downstairs and she talked to them earlier today and was claiming that they're here to pick her up. She was bizarre at times and was illogical. She spoke about getting the ultrasound and states that she saw the baby's face during the ultrasound and believes now that she is once again. She was unable to comprehend what the DEPARTMENT STORE GENERAL MANAGER spoke with her about yesterday with regards to the miscarriage. She has poor insight and judgment. She states that she is feeling fairly tired this morning. She claims that she was only able to sleep approximately 3-4 hours last night. At this time patient denies any suicidal or homical ideations, intent or plan. Patient denies any auditory, visual hallucinations. Patient denies any side effects from the medications and has been compliant with meds. Mental Status Exam: General Appearance: Patient appears to be short in stature, thin stated age is alert, constricted, isolative. Patient appears to have improving hygiene and grooming. walking around with a blanket over her. Behavior: Patient is seated without any agitated behavior. vague Speech: Patient's speech is fluent and nonpressured. [place]. Mood/Affect: Patient reports their mood is "a bit better", affect is congruent and constricted. Suicidality/Homicidality: Patient denies having any homicidal ideation intent or plan. Denies any suicidal ideations intent or plan Perceptions: Patient denies any visual hallucinations and denies any auditory hallucinations Though content/process: Patient is concrete, has poverty of content. Not endorsing any delusions or paranoia. Memory and concentration: AOX3, grossly intact for the purposes of this session Judgment and insight: poor, improving mildly Assessment Major depressive disorder, recurrent, severe with psychotic features vs. schizoaffective disorder Cannabis use disorder Plan: -Patient continues to meet criteria for inpatient psychiatric admission for symptom stabilization and safety. Patient has signed adult voluntary form and medication consent and was placed in patient's chart. -Medications: continue with Effexor XL 75 mg daily for mood/anxiety. continue with Seroquel to 75 mg daily at bedtime for psychosis/insomnia/mood adjunct. -When necessary Ativan and Haldol for agitation/aggression. -Patient was seen by DEPARTMENT STORE GENERAL MANAGER. She has an ultrasound on 01/29 which showed no intrauterine . -NRT - not needed as patient does not smoke -SW on board for discharge planning. Encouraged the patient to participate in milieu.
[2021-01-30] MEDS: ALBUTEROL INHALER 60 PUFF/8 GM INHALER (MHU) INHALATION PRN (12:28)
[2021-01-30] MEDS: haloperidoL 5 MG TAB PO PRN ×2 (13:05→20:47)
[2021-01-30] MEDS: QUEtiapine 25 MG TAB PO SCH (20:47)
[2021-01-31] MEDS: VENLAFAXINE HCL ER 75 MG CAP PO SCH (08:47)
[2021-01-31] MEDS: ACETAMINOPHEN TAB 325 MG TAB PO PRN (09:18)
--- NOTE | 2021-01-31 10:06 | P.PN ---
Progress Note - Text Progress Note Date: 01/31/21 Interval History: Patient was seen wandering the hallways this morning and was directable and ag reeable to speak with senior technical writer in the office. Patient continues to have a soft tone of voice and a flat affect. She states that she is feeling a bit better today with regards to her mood. She continues to have a poverty of content and is concrete. She claims that her parents are "rooting for me to get out" and continues to be focused on discharge. She appears to have poor insight and judgment into her condition and need for treatment. Robot Designer again spoke with patient about the ultrasound and her miscarriage and patient claims that "I saw the baby's face" and continues to believe that she is and also claims that "I haven't seen the results yet". She states that her energy level has been improving while on the unit. She claims that she has been going to groups however states that she is just "absorbing stuff" and not really participating. She claims that she was able to sleep a bit more last night however claims that she took a Haldol po prn as she was not able to initiate her sleep. At this time patient denies any suicidal or homical ideations, intent or plan. Patient denies any auditory, visual hallucinations. Patient denies any side effects from the medications and has been compliant with meds. Mental Status Exam: General Appearance: Patient appears to be short in stature, thin stated age is alert, constricted. Patient appears to have improving hygiene and grooming. Behavior: Patient is seated without any agitated behavior. vague Speech: Patient's speech is fluent and nonpressured. [place]. Mood/Affect: Patient reports their mood is "better", affect is incongruent and constricted. Suicidality/Homicidality: Patient denies having any homicidal ideation intent or plan. Denies any suicidal ideations intent or plan Perceptions: Patient denies any visual hallucinations and denies any auditory hallucinations Though content/process: Patient is concrete, has poverty of content. Not endorsing any paranoia. Continues to believe that she is . Memory and concentration: AOX3, grossly intact for the purposes of this session Judgment and insight: Chronically poor, improving mildly Assessment Major depressive disorder, recurrent, severe with psychotic features vs. schizoaffective disorder Cannabis use disorder Plan: -Patient continues to meet criteria for inpatient psychiatric admission for symptom stabilization and safety. Patient has signed adult voluntary form and medication consent and was placed in patient's chart. -Medications: Increased Effexor XL 150 mg daily for mood/anxiety. Increased Seroquel to 100 mg daily at bedtime for psychosis/insomnia/mood adjunct, this dose can be increased as needed over the weekend if patient continues to have difficulties with sleep and psychosis/delusions of -When necessary Ativan and Haldol for agitation/aggression. -Patient was seen by SCHEDULE ANALYST. She has an ultrasound on 01/29 which showed no intrauterine . -NRT - not needed as patient does not smoke -SW on board for discharge planning. Encouraged the patient to participate in milieu. likely discharge early next week if patient improves over the weekend.
[2021-01-31] MEDS: LORazepam 1 MG TAB PO PRN (13:53)
[2021-01-31] MEDS: haloperidoL 5 MG TAB PO PRN (13:53)
[2021-01-31] MEDS: ALBUTEROL INHALER 60 PUFF/8 GM INHALER (MHU) INHALATION PRN (14:39)
[2021-01-31] MEDS: QUEtiapine 100 MG TAB PO SCH (19:45)
[2021-02-01] MEDS: VENLAFAXINE HCL ER 150 MG CAP PO SCH (08:27)
[2021-02-01] MEDS: haloperidoL 5 MG TAB PO PRN (11:51)
--- NOTE | 2021-02-01 13:39 | P.PN ---
Progress Note - Text Progress Note Date: 02/01/21 Patient admitted to the hospital via ER after she apparently found out that she had miscarried a . Patient was uncooperative and had a flat affect in the ER. According to ER report patient's boyfriend stated that patient had not been taking her medications and had been having poor sleep and poor appetite. This patient stated she has been here for 2 days and does not feel as bad as she used to when she came here. She stated "I am still depressed". She stays in the bed most of the time and speaks in a very low monotonous voice. She makes no eye contact. She is taking her medications for now and does not show any side effects of medication. She is quiet, isolates herself from peers. She will continue to be maintained on medication and in the milieu since she continues to be a risk for self-harm.
[2021-02-01] MEDS: LORazepam 1 MG TAB PO PRN (14:25)
[2021-02-01] MEDS: ALBUTEROL INHALER 60 PUFF/8 GM INHALER (MHU) INHALATION PRN (14:50)
[2021-02-01] MEDS: ACETAMINOPHEN TAB 325 MG TAB PO PRN (15:18)
[2021-02-01] MEDS: QUEtiapine 100 MG TAB PO SCH (21:45)
[2021-02-02] MEDS: VENLAFAXINE HCL ER 150 MG CAP PO SCH (08:54)
[2021-02-02] MEDS: LORazepam 1 MG TAB PO PRN (10:20)
--- NOTE | 2021-02-02 12:42 | P.PN ---
Progress Note - Text Progress Note Date: 02/02/21 Patient states that she has a history of depression and anxiety. Patient was previously on Abilify Maintenna, Effexor, trazodone in the past. Patient's last hospitalization to the mental health unit was early November 2020. Patient states that she has been following up with [facility]. This patient is still withdrawn and preoccupied and stays to herself. She has psychomotor retardation and her speech is low in volume and monotonous. She does not interact with other peers on the unit. She is passively compliant with treatment. She is very fearful and anxious. She is taking her medications and does not appear to show any side effects of it. She will be continually encouraged to participate in unit activities.
[2021-02-02] MEDS: ACETAMINOPHEN TAB 325 MG TAB PO PRN ×2 (13:46→17:52)
[2021-02-02] MEDS: QUEtiapine 100 MG TAB PO SCH (20:51)
[2021-02-02] MEDS: haloperidoL 5 MG TAB PO PRN (20:52)
[2021-02-03] MEDS: VENLAFAXINE HCL ER 150 MG CAP PO SCH (08:19)
[2021-02-03] MEDS: LORazepam 1 MG TAB PO PRN ×2 (10:43→18:09)
--- NOTE | 2021-02-03 12:29 | P.PN ---
Progress Note - Text Progress Note Date: 02/03/21 Interval History: Patient was seen participating in group this morning and was directable and ag reeable to speak with information writer in the office. Patient continues to have a soft tone of voice and a flat affect which has been improving mildly. She states that she is feeling a bit better today with regards to her mood and anxiety. She continues to have a poverty of content and is concrete in her thought process. She continues to be preoccupied with discharge and states that she signed her discharge paperwork this morning as it was given to her by "somebody in the front". She appears to have poor insight and judgment into her condition and need for treatment. She has been taking her medications as prescribed. Today she states that she is still "coming to terms with it" when asked about her /miscarriage and today believes that she does not have a viable . She claims that she has been going to groups however was fairly vague about it. She was endorsing paranoia today towards other people on the unit and claims that she was feeling "paranoid last night" therefore took a by mouth Haldol when necessary before bed. She claims that she was able to sleep a bit more last night. At this time patient denies any suicidal or homical ideations, intent or plan. Patient denies any auditory, visual hallucinations. Patient denies any side effects from the medications and has been compliant with meds. Mental Status Exam: General Appearance: Patient appears to be short in stature, thin stated age is alert, constricted. Patient appears to have improving hygiene and grooming. Behavior: Patient is seated without any agitated behavior. vague Speech: Patient's speech is fluent and nonpressured. [place]. Mood/Affect: Patient reports their mood is "ok", affect is incongruent and constricted. Suicidality/Homicidality: Patient denies having any homicidal ideation intent or plan. Denies any suicidal ideations intent or plan Perceptions: Patient denies any visual hallucinations and denies any auditory hallucinations Though content/process: Patient is concrete, has poverty of content. Endorsing paranoia. Memory and concentration: AOX3, grossly intact for the purposes of this session Judgment and insight: Chronically poor, improving mildly Assessment Major depressive disorder, recurrent, severe with psychotic features vs. schizoaffective disorder Cannabis use disorder Plan: -Patient continues to meet criteria for inpatient psychiatric admission for symptom stabilization and safety. Patient has signed adult voluntary form and medication consent and was placed in patient's chart. -Medications: Continue with Effexor XL 150 mg daily for mood/anxiety. Increased Seroquel to 150 mg daily at bedtime for psychosis/insomnia/mood adjunct -When necessary Ativan and Haldol for agitation/aggression. -Patient was seen by PLASTICS HEAT WELDER. She has an ultrasound on 01/29 which showed no intrauterine . -NRT - not needed as patient does not smoke -SW on board for discharge planning. Encouraged the patient to participate in milieu. likely discharge in the next 2-3 days. Patient will be followed by the act team through [facility].
[2021-02-03] MEDS ORDERED: QUEtiapine 50 MG TAB PO SCH (21:00)
[2021-02-03] MEDS: ACETAMINOPHEN TAB 325 MG TAB PO PRN (21:08)
[2021-02-03] MEDS: haloperidoL 5 MG TAB PO PRN (22:03)
[2021-02-04] MEDS: VENLAFAXINE HCL ER 150 MG CAP PO SCH (09:02)
[2021-02-04] MEDS: LORazepam 1 MG TAB PO PRN ×2 (09:04→18:19)
--- NOTE | 2021-02-04 11:07 | P.PN ---
Progress Note - Text Progress Note Date: 02/04/21 Interval History: Patient was seen this morning laying in her bed and was directable and agreeable to speak with radio script writer in the office. Patient continues to have a soft tone of voice. She has mild improvement in her affect today. She states that she is feeling a bit better today with regards to her mood and anxiety. She continues to have a poverty of content and is concrete in her thought process. She was less preoccupied with discharge today and appeared to be calmer. She appears to have poor insight and judgment into her condition and need for treatment. She has been taking her medications as prescribed. She did not want to speak more about her and miscarriage today. She claims that she has been going to groups however was fairly vague about it. She claims that she did take a Haldol by mouth when necessary last night and states that she was because she was feeling "a bit paranoid and restless" and needed to initiate sleep. She claims that she was able to sleep a bit more last night. At this time patient denies any suicidal or homical ideations, intent or plan. Patient denies any auditory, visual hallucinations. Patient denies any side effects from the medications and has been compliant with meds. Mental Status Exam: General Appearance: Patient appears to be short in stature, thin stated age is alert, constricted. Patient appears to have improving hygiene and grooming. Behavior: Patient is seated without any agitated behavior. vague Speech: Patient's speech is fluent and nonpressured. [place]. Soft tone Mood/Affect: Patient reports their mood is "fine", affect is congruent and constricted. Suicidality/Homicidality: Patient denies having any homicidal ideation intent or plan. Denies any suicidal ideations intent or plan Perceptions: Patient denies any visual hallucinations and denies any auditory hallucinations Though content/process: Patient is concrete, has poverty of content. [place]. Memory and concentration: AOX3, grossly intact for the purposes of this session Judgment and insight: Chronically poor, improving mildly Assessment Major depressive disorder, recurrent, severe with psychotic features vs. schizoaffective disorder Cannabis use disorder Plan: -Patient continues to meet criteria for inpatient psychiatric admission for symptom stabilization and safety. Patient has signed adult voluntary form and medication consent and was placed in patient's chart. -Medications: Continue with Effexor XL 150 mg daily for mood/anxiety. Increased Seroquel to 200 mg daily at bedtime for psychosis/insomnia/mood adjunct as patient took another prn of po haldol last night. -When necessary Ativan and Haldol for agitation/aggression. -Patient was seen by [facility] DEAN. She has an ultrasound on 01/29 which showed no intrauterine . -NRT - not needed as patient does not smoke -SW on board for discharge planning. Encouraged the patient to participate in milieu. likely discharge tomorrow if patient does well overnight. Patient will be followed by the act team through [facility].
[2021-02-04] MEDS: ACETAMINOPHEN TAB 325 MG TAB PO PRN (13:36)
[2021-02-04 15:19] VITALS: BMI 23.8
[2021-02-04] MEDS ORDERED: QUEtiapine 200 MG TAB PO SCH (21:00)
[2021-02-05 07:04] VITALS: TEMP 97.9
[2021-02-05] MEDS: VENLAFAXINE HCL ER 150 MG CAP PO SCH (08:48)
[2021-02-05 08:49] VITALS: BP 99/61; PULSE 107; RESP 16
[2021-02-05] MEDS: ACETAMINOPHEN TAB 325 MG TAB PO PRN (09:12)
--- NOTE | 2021-02-05 10:30 | P.DS ---
Providers Date of admission: 01/27/21 18:36 Expected date of discharge: 02/05/21 Attending physician: Andrew Borges MD Consults: 01/27/21 19:05 Consult Physician Routine Consulting Provider: Sanjeev Lopez Consult Reason/Comments: H&P and medical Do you want consulting provider notified?: Yes 01/27/21 19:19 Consult Physician Routine Consulting Provider: Heather Bloom Consult Reason/Comments: Covering for Dr. Lopez Do you want consulting provider notified?: Yes 01/28/21 13:57 Consult Physician Urgent Consulting Provider: Evan Verdin Consult Reason/Comments: pregnacy with lower abd pain and blood clot per vagina Do you want consulting provider notified?: Yes Primary care physician: Andrew Loja - Discharge Diagnosis(es) (1) Schizoaffective disorder, depressive type Current Visit: Yes Status: Acute Priority: High (2) Cannabis abuse Current Visit: Yes Status: Acute Priority: Medium Hospital Course: Admission HPI: Admission note was completed by job specification writer "Patient is a 25-year-old female who currently lives alone in an apartment is single and has 1 daughter. She is currently unemployed. Patient presented to the hospital yesterday to the ER after she apparently found out that she had miscarried a . Patient apparently was uncooperative and had a flat affect in the ER. According to ER report patient's boyfriend stated that patient had not been taking her medications and had been having poor sleep and poor appetite. Patient's UDS was positive for THC and had a positive beta hCG test which was detected however the quantitative level had dropped to 303 since previously obtained on 01/21 which was 15,579. Patient was recently discharged from the mental health unit in early November 2020. At that time patient was discharged on trazodone and Effexor for major depressive disorder. Patient was seen today by job specification writer laying down in her bed and was appearing to be lethargic however was awoken and spoke with job specification writer in the office. She has a poverty of content and speech today and has a flat affect. She states that she was feeling tired once again and states that she has not been taking her medications for several weeks. She states that she took to stop taking her medications because she believed that she was . Patient today believes once again that she was and that nobody had told her that she had a miscarriage. She claims that she has been feeling depressed and tired and when asked about stressors she was fairly vague and guarded. Patient had a soft tone of voice and appeared to be constricted in her affect. She denies any paranoia at this time. Patient was mildly delusional thinking that she was still and had no concern when job specification writer explained that she had a misscairage. She is denying any anxiety at this time. She states that her dad brought her into the hospital and that she was stating that she was "overdramatic" and was requesting to go back home today. She claims that her sleep is poor. Patient denies any suicidal or homicidal ideations intent or plan. At this time patient denies any auditory or visual hallucinations. Patient denies any flight of ideas racing thoughts and increased in goal directed behavior. Patient admits to using occasional marijuana and denies any other recreational drug use. She is denying any cigarette use." Hospital course: Upon admission to the unit patient was initially lethargic, psychotic and depressed. Patient was previously on a deferral from her previous hospitalization however did not take her medications due to the belief that she was . Patient got along well with other patients on the unit and followed unit protocol. Patient was compliant with the medications and denied any side effects throughout hospital course. Patient was started on Seroquel and increased to a dose of 200 mg daily at bedtime for psychosis/insomnia/mood adjunct. Patient was also restarted on Effexor XL titrated up to dose at 150 mg daily for mood/anxiety. Patient spoke of her stressors and engaged in therapy both group and individual. Patient was also seen by medical team for history and physical exam. Due to patient's miscarriage, [facility] [facility] consultation was ordered and completed. Patient had a transabdominal ultrasound ordered by [employer] [facility] which showed no intrauterine . Patient had a significant decrease of her beta hCG from her previous ER visit to this hospitalization suggesting miscarriage. Throughout the course of the hospitalization patient gradually improved with regards to mood, anxiety, psychosis/delusions, sleep. On the day of discharge patient denied any suicidal or homicidal ideations intent or plan denied any auditory or visual hallucinations. Patient endorsed wanting to live for her health and family. The patient denied any access to guns or weapons. Patient denied any paranoia and did not endorse any delusions. Patient does have a significant history of substance abuse and was counseled on abstaining from all substances including alcohol and marijuana. Patient was also counseled on the medications and need for regular compliance and was encouraged to follow-up with their outpatient appointment for mental health and also for primary care. Prior to discharge a family meeting will be arranged by high school social studies teacher to answer any questions and ensure safety upon discharge. Mental status exam: General Appearance: Patient appears to be short in stature, stated age is alert, pleasant, and more cooperative. Patient is in no acute distress and has improved hygiene and grooming Behavior: Patient is calmly seated without any agitated behavior. Speech: Patient's speech is fluent and nonpressured. Mood/Affect: Patient reports their mood is "better", affect is congruent and euthymic. Suicidality/Homicidality: Patient denies having any suicidal or homicidal ideation intent or plan. Perceptions: Patient denies any auditory or visual hallucinations. Though content/process: There is no evidence of any delusional thought content and thought process is linear and goal-directed. [place]. Memory and concentration: AOX3, grossly intact for the purposes of this session. Can spell "WORLD" backwards correctly. Judgment and insight: chronically poor, however has improved with guarded prognosis Impression: Schizoaffective disorder, depressive type Cannabis use disorder Plan: -Continue with discharge today as patient has improved and stabilized psychiatrically and is not currently an imminent threat to herself and/or others. Patient will remain at chronically elevated risk for harm to self and/or others due to her chronically poor insight and judgment. -Continue medications: Effexor XL 150 mg daily for mood/anxiety, Seroquel 200 mg daily at bedtime for psychosis/insomnia/mood adjunct -Patient was counseled on the need for medication compliance and appropriate follow-up at mental health and also primary care for medical issues. Patient verbalized understanding and agreed. -Social work to arrange for and conduct family meeting to ensure safety upon discharge and answer any questions/concerns. Social work also to arrange for patients follow up appointments with [facility] for psychiatric care along with follow up with primary care provider. Patient will be followed up with by the act team through [facility]. -Patient counseled on abstaining from recreational drugs and marijuana and alcohol. Was informed/educated on the adverse effects on their physical and mental health. Patient verbally agreed and understood. Patient was offered substance abuse treatment however declined at this time. -Patient was instructed to return to the hospital or seek immediate medical care if their psychiatric or medical symptoms do worsen or reoccur. Allergies Allergy/AdvReac Type Severity Reaction Status Date / Time cat dander Allergy Unknown Verified 01/27/21 12:21 dandelion (Taraxacum Allergy Unknown Verified 01/27/21 12:21 officinale) dog dander Allergy Unknown Verified 01/27/21 12:21 grass pollen Allergy Unknown Verified 01/27/21 12:21 mold Allergy Unknown Verified 01/27/21 12:21 oak Allergy Unknown Verified 01/27/21 12:21 peanut Allergy Unknown Verified 01/27/21 12:21 peas Allergy Unknown Verified 01/27/21 12:21 pine nut Allergy Unknown Verified 01/27/21 12:21 DUST Allergy Unknown Uncoded 01/27/21 11:05 [place]ES Allergy Unknown Uncoded 01/27/21 11:05 Laboratory Results HCG, Quant 303.4 mIU/mL 01/28/21 07:16 Urine HCG, Qual Detected (Not Detectd) 01/27/21 17:37 Urine Opiates Screen Not Detected (NotDetected) 01/27/21 17:37 Ur Oxycodone Screen Not Detected (NotDetected) 01/27/21 17:37 Urine Methadone Screen Not Detected (NotDetected) 01/27/21 17:37 Ur Propoxyphene Screen Not Detected (NotDetected) 01/27/21 17:37 Ur Barbiturates Screen Not Detected (NotDetected) 01/27/21 17:37 U Tricyclic Antidepress Not Detected (NotDetected) 01/27/21 17:37 Ur Phencyclidine Scrn Not Detected (NotDetected) 01/27/21 17:37 Ur Amphetamines Screen Not Detected (NotDetected) 01/27/21 17:37 U Methamphetamines Scrn Not Detected (NotDetected) 01/27/21 17:37 U Benzodiazepines Scrn Not Detected (NotDetected) 01/27/21 17:37 Urine Cocaine Screen Not Detected (NotDetected) 01/27/21 17:37 U Marijuana (THC) Screen Detected (NotDetected) H 01/27/21 17:37 Coronavirus (PCR) Not Detected (Not Detectd) 01/27/21 16:26 Vital Signs Temp 97.9 F 02/05/21 07:03 Pulse 107 H 02/05/21 08:49 Resp 16 02/05/21 08:49 BP 99/61 02/05/21 08:49 Pulse Ox 97 02/03/21 08:22 Intake & Output 02/04/21 02/05/21 02/05/21 18:59 06:59 18:59 Weight 53.4 kg Patient Condition at Discharge: Stable Plan - Discharge Summary Discharge Rx Participant: Yes New Discharge Prescriptions: New QUEtiapine [SEROquel] 200 mg PO HS 30 Days tab Acetaminophen Tab [Tylenol] 650 mg PO Q4HR PRN tab PRN Reason: Pain/Discomfort Venlafaxine HCl ER [Effexor XR] 150 mg PO DAILY 30 Days cap.er.24h Continue Albuterol Sulfate [Proair Hfa] 1 - 2 puff INHALATION RT-Q6H PRN PRN Reason: Shortness Of Breath Discontinued traZODone HCL [Desyrel] 50 mg PO HS Venlafaxine HCl [Effexor] 37.5 mg PO DAILY Sertraline [Zoloft] 50 mg PO DAILY Discharge Medication List Albuterol Sulfate [Proair Hfa] 1 - 2 puff INHALATION RT-Q6H PRN 01/21/21 [History] Acetaminophen Tab [Tylenol] 650 mg PO Q4HR PRN tab 02/05/21 [Rx] QUEtiapine [SEROquel] 200 mg PO HS 30 Days tab 02/05/21 [Rx] Venlafaxine HCl ER [Effexor XR] 150 mg PO DAILY 30 Days cap.er.24h 02/05/21 [Rx] Follow up Appointment(s)/Referral(s): [facility] [Outside] - 02/10/21 4:30 pm (Hilaria Smith WednesdayFebruary 10 at 4:30 at [facility]) Andrew Loja DO [Primary Care Provider] - 1-2 days Activity/Diet/Wound Care/Special Instructions: Activity and diet as tolerated. Avoid the use of street drugs and alcohol. Take all medications as prescribed. When you are in need of refills on your medications please contact your medical provider and/or outpatient psychiatrist to have this done. Please go to scheduled outpatient appointment for aftercare treatment. If symptoms return or become worse, call the crisis line at and/or go to the nearest emergency room for evaluation. Discharge Disposition: HOME SELF-CARE
== END 2021-02-05 13:40 | disposition home or self-care (01) | DRG 885 ==
LOC: EC 10:30 → 3MHU 18:36
PROVIDERS: ADMIT Psychiatry & Neurology Psychiatry; ATTEND Psychiatry & Neurology Psychiatry
DX: F31.9 Bipolar disorder, unspecified (principal); F12.10 Cannabis abuse, uncomplicated; F41.9 Anxiety disorder, unspecified; G47.00 Insomnia, unspecified; J45.909 Unspecified asthma, uncomplicated; Z20.822 Contact with and (suspected) exposure to COVID-19; O03.9 Complete or unspecified spontaneous abortion without complication; Z56.0 Unemployment, unspecified; Z79.899 Other long term (current) drug therapy; Z81.8 Family history of other mental and behavioral disorders; Z82.5 Family history of asthma and other chronic lower respiratory diseases; Z87.891 Personal history of nicotine dependence; Z91.14 Patient's other noncompliance with medication regimen
CPT/HCPCS: 76801; 80306; 81025; 82075; 84702; 87635; 99284

== ENCOUNTER 2021-04-05 15:27 | Emergency (ER) | payer OTHER ==
[2021-04-05 15:52] VITALS: BP 123/79; PULSE 84; RESP 20; TEMP 98
--- NOTE | 2021-04-05 16:28 | ED ---
Recheck HPI - General Chief Complaint: Recheck/Abnormal Lab/Rx Stated Complaint: wants specific covid test Source: patient Mode of arrival: ambulatory Limitations: no limitations - History of Present Illness Initial Comments: 25-year-old male presents to emergency Department with a chief complaint of covid tseting. States she needs a negative test in order to cross into [place]. Denies any symptoms. - Related Data Home Medications Medication Instructions Recorded Confirmed Albuterol Sulfate [Proair Hfa] 1 - 2 puff INHALATION RT-Q6H PRN 01/21/21 04/05/21 Previous Rx's Medication Instructions Recorded Acetaminophen Tab [Tylenol] 650 mg PO Q4HR PRN tab 02/05/21 QUEtiapine [SEROquel] 200 mg PO HS 30 Days tab 02/05/21 Venlafaxine HCl ER [Effexor XR] 150 mg PO DAILY 30 Days cap.er.24h 02/05/21 Allergies Allergy/AdvReac Type Severity Reaction Status Date / Time cat dander Allergy Unknown Verified 04/05/21 15:51 dandelion (Taraxacum Allergy Unknown Verified 04/05/21 15:51 officinale) dog dander Allergy Unknown Verified 04/05/21 15:51 grass pollen Allergy Unknown Verified 04/05/21 15:51 mold Allergy Unknown Verified 04/05/21 15:51 oak Allergy Unknown Verified 04/05/21 15:51 peanut Allergy Unknown Verified 04/05/21 15:51 peas Allergy Unknown Verified 04/05/21 15:51 pine nut Allergy Unknown Verified 04/05/21 15:51 DUST Allergy Unknown Uncoded 04/05/21 15:51 PINE TREES Allergy Unknown Uncoded 04/05/21 15:51 Review of Systems ROS Statement: Those systems with pertinent positive or pertinent negative responses have been documented in the HPI. ROS Other: All systems not noted in ROS Statement are negative. Past Medical History Past Medical History: Asthma Additional Past Medical History / Comment(s): allergies History of Any Multi-Drug Resistant Organisms: None Reported Past Surgical History: Section Past Anesthesia/Blood Transfusion Reactions: No Reported Reaction Past Psychological History: No Psychological Hx Reported Smoking Status: Never smoker Past Alcohol Use History: None Reported Past Drug Use History: None Reported - Past Family History Mother Family Medical History: Asthma General Exam Limitations: no limitations General appearance: alert, in no apparent distress Head exam: Present: atraumatic, normocephalic, normal inspection Eye exam: Present: normal appearance, PERRL, EOMI Pupils: Present: normal accommodation ENT exam: Present: normal exam, normal oropharynx Neck exam: Present: normal inspection, full ROM Respiratory exam: Present: normal lung sounds bilaterally. Absent: respiratory distress Cardiovascular Exam: Present: regular rate, normal rhythm, normal heart sounds Extremities exam: Present: normal inspection, full ROM Back exam: Present: normal inspection, full ROM Neurological exam: Present: alert, oriented X3 Psychiatric exam: Present: normal affect, normal mood Skin exam: Present: warm, dry, intact, normal color Course Vital Signs 04/05/21 15:46 Temperature 98.0 F Pulse Rate 84 Respiratory 20 Rate Blood Pressure 123/79 O2 Sat by Pulse 99 Oximetry Medical Decision Making - Medical Decision Making Negative covert test. Test results were printed and given to her. Return instructions given. - Lab Data Lab Results 04/05/21 Range/Units 15:53 Coronavirus (PCR) Not Detected (Not Detectd) Disposition Clinical Impression: COVID-19 ruled out by laboratory testing Disposition: HOME SELF-CARE Condition: Stable Instructions (If sedation given, give patient instructions): Coronavirus Disease 2019 (COVID-19) Additional Instructions: Please return to the Emergency Department if symptoms worsen or any other concerns. Is patient prescribed a controlled substance at d/c from ED?: No Referrals: Andrew Loja DO [Primary Care Provider] - 1-2 days Time of Disposition: 16:27
== END 2021-04-05 16:30 | disposition home or self-care (01) ==
LOC: EC 15:27
DX: Z20.822 Contact with and (suspected) exposure to COVID-19 (principal); J45.909 Unspecified asthma, uncomplicated; Z79.899 Other long term (current) drug therapy
CPT/HCPCS: 87635; 99282

== ENCOUNTER 2022-01-07 06:47 | Emergency (ER) | payer OTHER ==
[2022-01-07 07:18] VITALS: TEMP 98.5
--- NOTE | 2022-01-07 07:31 | ED ---
General Adult HPI - General Chief complaint: Extremity Injury, Lower Stated complaint: Leg Numbness Time Seen by Provider: 01/07/22 07:05 Source: patient, EMS, RN notes reviewed, old records reviewed Mode of arrival: EMS Limitations: no limitations - History of Present Illness Initial comments: 26 -year-old female presenting for evaluation of right leg swelling and tingling. There is no weakness. She states she does feel some tingling into her left leg as well. She states she's had swelling in her legs previously and this was related to . She denies injury. She denies back pain or abdominal pain. She denies chest pain or dyspnea. Denies fever. Patient came through ambulatory triage. Her symptoms have been present for just over 24 hours. - Related Data Home Medications Medication Instructions Recorded Confirmed Acetaminophen/Pamabrom [Midol 4 tab PO DAILY PRN 01/07/22 01/07/22 [place]] Allergies Allergy/AdvReac Type Severity Reaction Status Date / Time cat dander Allergy Unknown Verified 01/07/22 08:58 dandelion (Taraxacum Allergy Unknown Verified 01/07/22 08:58 officinale) dog dander Allergy Unknown Verified 01/07/22 08:58 grass pollen Allergy Unknown Verified 01/07/22 08:58 mold Allergy Unknown Verified 01/07/22 08:58 oak Allergy Unknown Verified 01/07/22 08:58 peanut Allergy Unknown Verified 01/07/22 08:58 peas Allergy Unknown Verified 01/07/22 08:58 pine nut Allergy Unknown Verified 01/07/22 08:58 DUST Allergy Unknown Uncoded 10/07/21 19:20 PINE TREES Allergy Unknown Uncoded 10/07/21 19:20 Review of Systems ROS Statement: Those systems with pertinent positive or pertinent negative responses have been documented in the HPI. ROS Other: All systems not noted in ROS Statement are negative. Past Medical History Past Medical History: Asthma Additional Past Medical History / Comment(s): allergies History of Any Multi-Drug Resistant Organisms: None Reported Past Surgical History: Section Past Anesthesia/Blood Transfusion Reactions: No Reported Reaction Past Psychological History: ADD/ADHD, Anxiety, Bipolar, Depression Smoking Status: Current every day smoker Past Alcohol Use History: None Reported Past Drug Use History: None Reported - Past Family History Mother Family Medical History: Asthma General Exam Limitations: no limitations General appearance: alert, in no apparent distress Head exam: Present: atraumatic, normocephalic Eye exam: Present: normal appearance, PERRL ENT exam: Present: normal exam Neck exam: Present: normal inspection. Absent: tenderness, meningismus Respiratory exam: Present: normal lung sounds bilaterally. Absent: respiratory distress, wheezes Cardiovascular Exam: Present: regular rate, normal rhythm GI/Abdominal exam: Present: soft. Absent: distended, tenderness, guarding Extremities exam: Present: normal inspection, full ROM, normal capillary refill, other (Bilateral PT pulses are 2+.). Absent: pedal edema, joint swelling, calf tenderness Neurological exam: Present: alert, oriented X3, CN II-XII intact, reflexes normal, other (Normal gait, normal strength throughout, 5 out of 5 strength. Normal patellar reflexes. Patient is able to stand on toes, squat and walk without difficulty.). Absent: motor sensory deficit Skin exam: Present: warm, dry, intact. Absent: cyanosis, diaphoretic Course Vital Signs 01/07/22 07:02 Temperature 98.5 F Pulse Rate 93 Respiratory 16 Rate Blood Pressure 119/72 O2 Sat by Pulse 98 Oximetry Medical Decision Making - Medical Decision Making 26-year-old female presenting with pain in the right calf as well as soft tissue swelling. She reported some anesthesia sensations. There is no weakness. Normal gait. Normal reflexes. No back pain. No abdominal pain. I did perform laboratory testing to evaluate electrolytes predominantly. She has a mild anemia, normal electrolytes, urinalysis is contaminated without urinary symptoms. Culture will be performed awaiting further results. I did perform an ultrasound rule out DVT in the right lower extremity which is negative. Patient reassured. She is given strict return parameters she will follow-up with her primary care physician. If she should develop fever, back pain, weakness in the leg she should return the emergency department. - Lab Data Result diagrams: 01/07/22 08:19 01/07/22 08:19 Lab Results 01/07/22 01/07/22 01/07/22 Range/Units 08:19 08:19 08:19 WBC 4.6 (3.8-10.6) k/uL RBC 4.01 (3.80-5.40) m/uL Hgb 10.9 L (11.4-16.0) gm/dL Hct 34.5 (34.0-46.0) % MCV 86.1 (80.0-100.0) fL MCH 27.1 (25.0-35.0) pg MCHC 31.5 (31.0-37.0) g/dL RDW 15.5 (11.5-15.5) % Plt Count 232 (150-450) k/uL MPV 9.8 Neutrophils % 42 % Lymphocytes % 41 % Monocytes % 6 % Eosinophils % 7 % Basophils % 1 % Neutrophils # 1.9 (1.3-7.7) k/uL Lymphocytes # 1.9 (1.0-4.8) k/uL Monocytes # 0.3 (0-1.0) k/uL Eosinophils # 0.3 (0-0.7) k/uL Basophils # 0.1 (0-0.2) k/uL Sodium (137-145) mmol/L Potassium (3.5-5.1) mmol/L Chloride (98-107) mmol/L Carbon Dioxide (22-30) mmol/L Anion Gap mmol/L BUN (7-17) mg/dL Creatinine (0.52-1.04) mg/dL Est GFR (CKD-EPI)AfAm (>60 ml/min/1.73 sqM) Est GFR (CKD-EPI)NonAf (>60 ml/min/1.73 sqM) Glucose (74-99) mg/dL Calcium (8.4-10.2) mg/dL Magnesium (1.6-2.3) mg/dL Total Bilirubin (0.2-1.3) mg/dL AST (14-36) U/L ALT (4-34) U/L Alkaline Phosphatase (38-126) U/L NT-Pro-B Natriuret Pep pg/mL Total Protein (6.3-8.2) g/dL Albumin (3.5-5.0) g/dL Urine Color Yellow Urine Appearance Cloudy H (Clear) Urine pH 5.5 (5.0-8.0) Ur Specific [place] 1.035 (1.001-1.035) Urine Protein 1+ H (Negative) Urine Glucose (UA) Negative (Negative) Urine Ketones Negative (Negative) Urine Blood Negative (Negative) Urine Nitrite Negative (Negative) Urine Bilirubin Negative (Negative) Urine Urobilinogen 2.0 (<2.0) mg/dL Ur Leukocyte Esterase Large H (Negative) Urine RBC 27 H (0-5) /hpf Urine WBC 82 H (0-5) /hpf Ur Squamous Epith Cells 33 H (0-4) /hpf Amorphous Sediment Rare H (None) /hpf Urine Bacteria Occasional H (None) /hpf Urine Mucus Many H (None) /hpf Urine HCG, Qual Not Detected (Not Detectd) 01/07/22 01/07/22 Range/Units 08:19 08:19 WBC (3.8-10.6) k/uL RBC (3.80-5.40) m/uL Hgb (11.4-16.0) gm/dL Hct (34.0-46.0) % MCV (80.0-100.0) fL MCH (25.0-35.0) pg MCHC (31.0-37.0) g/dL RDW (11.5-15.5) % Plt Count (150-450) k/uL MPV Neutrophils % % Lymphocytes % % Monocytes % % Eosinophils % % Basophils % % Neutrophils # (1.3-7.7) k/uL Lymphocytes # (1.0-4.8) k/uL Monocytes # (0-1.0) k/uL Eosinophils # (0-0.7) k/uL Basophils # (0-0.2) k/uL Sodium 140 (137-145) mmol/L Potassium 3.8 (3.5-5.1) mmol/L Chloride 111 H (98-107) mmol/L Carbon Dioxide 22 (22-30) mmol/L Anion Gap 7 mmol/L BUN 11 (7-17) mg/dL Creatinine 0.68 (0.52-1.04) mg/dL Est GFR (CKD-EPI)AfAm >90 (>60 ml/min/1.73 sqM) Est GFR (CKD-EPI)NonAf >90 (>60 ml/min/1.73 sqM) Glucose 113 H (74-99) mg/dL Calcium 8.9 (8.4-10.2) mg/dL Magnesium 2.2 (1.6-2.3) mg/dL Total Bilirubin 0.4 (0.2-1.3) mg/dL AST 22 (14-36) U/L ALT 18 (4-34) U/L Alkaline Phosphatase 50 (38-126) U/L NT-Pro-B Natriuret Pep 14 pg/mL Total Protein 6.8 (6.3-8.2) g/dL Albumin 3.8 (3.5-5.0) g/dL Urine Color Urine Appearance (Clear) Urine pH (5.0-8.0) Ur Specific [place] (1.001-1.035) Urine Protein (Negative) Urine Glucose (UA) (Negative) Urine Ketones (Negative) Urine Blood (Negative) Urine Nitrite (Negative) Urine Bilirubin (Negative) Urine Urobilinogen (<2.0) mg/dL Ur Leukocyte Esterase (Negative) Urine RBC (0-5) /hpf Urine WBC (0-5) /hpf Ur Squamous Epith Cells (0-4) /hpf Amorphous Sediment (None) /hpf Urine Bacteria (None) /hpf Urine Mucus (None) /hpf Urine HCG, Qual (Not Detectd) Disposition Clinical Impression: Paresthesia of right lower extremity Disposition: HOME SELF-CARE Condition: Fair Instructions (If sedation given, give patient instructions): Paresthesia (ED) Is patient prescribed a controlled substance at d/c from ED?: No Referrals: Andrew Loja DO [Primary Care Provider] - 1-2 days Time of Disposition: 10:16
[2022-01-07 08:38] LABS: Basophils # (A) 0.1 k/uL (0-0.2); Basophils % (A) 1 %; Eosinophils # (A) 0.3 k/uL (0-0.7); Eosinophils % (A) 7 %; HCT 34.5 % (34.0-46.0); HGB 10.9 gm/dL (11.4-16.0); Lymphocytes # (A) 1.9 k/uL (1.0-4.8); Lymphocytes % (A) 41 %; MCH 27.1 pg (25.0-35.0); MCHC 31.5 g/dL (31.0-37.0); MCV 86.1 fL (80.0-100.0); Mean Platelet Volume 9.8; Monocytes # (A) 0.3 k/uL (0-1.0); Monocytes % (A) 6 %; Neutrophils # (A) 1.9 k/uL (1.3-7.7); Neutrophils % (A) 42 %; Platelet Count 232 k/uL (150-450); RBC 4.01 m/uL (3.80-5.40); RDW 15.5 % (11.5-15.5); WBC 4.6 k/uL (3.8-10.6)
[2022-01-07] MEDS ORDERED: HYDROcodone/APAP 5-325MG 1 EACH TAB PO STA (08:46)
[2022-01-07 08:53] LABS: ALT 18 U/L (4-34); AST 22 U/L (14-36); African American GFR (CKD) >90 (>60 ml/min/1.73 sqM); Albumin 3.8 g/dL (3.5-5.0); Alkaline Phosphatase 50 U/L (38-126); Anion Gap 7 mmol/L; Blood Urea Nitrogen 11 mg/dL (7-17); Calcium 8.9 mg/dL (8.4-10.2); Carbon Dioxide 22 mmol/L (22-30); Chloride 111 mmol/L (98-107); Glucose 113 mg/dL (74-99); Magnesium 2.2 mg/dL (1.6-2.3); Non-African American GFR(CKD) >90 (>60 ml/min/1.73 sqM); Potassium 3.8 mmol/L (3.5-5.1); Sodium 140 mmol/L (137-145); Total Bilirubin 0.4 mg/dL (0.2-1.3); Total Protein 6.8 g/dL (6.3-8.2)
--- NOTE | 2022-01-07 08:53 | US ---
EXAMINATION TYPE: US venous doppler duplex LE RT DATE OF EXAM: 01/07/2022 8:47 AM COMPARISON: NONE CLINICAL HISTORY: swelling. SIDE PERFORMED: Right TECHNIQUE: The lower extremity deep venous system is examined utilizing real time linear array sonog madi with graded compression, doppler sonography and color-flow sonography. VESSELS IMAGED: Common Femoral Vein Deep Femoral Vein Greater Saphenous Vein * Femoral Vein Popliteal Vein Small Saphenous Vein * Proximal Calf Veins (* superficial vessels) Right Leg: Negative for DVT IMPRESSION: No evidence of DVT at this time.
[2022-01-07 09:35] LABS: Amorphous Sediment,Urine Rare /hpf; Appearance,Urine Cloudy (Clear); Bacteria,Urine Occasional /hpf; Bilirubin,Urine Negative (Negative); Blood,Urine Negative (Negative); Color,Urine Yellow; Glucose,Urine (UA) Negative (Negative); Ketones,Urine Negative (Negative); Leukocyte Esterase,Urine Large (Negative); Mucus,Urine Many /hpf; Nitrite,Urine Negative (Negative); PH, Urine 5.5 (5.0-8.0); Protein,Urine 1+ (Negative); RBC,Urine 27 /hpf (0-5); Specific Gravity,Urine 1.035 (1.001-1.035); Squamous Epithelial Cell,Urine 33 /hpf (0-4); WBC,Urine 82 /hpf (0-5)
[2022-01-07 11:34] VITALS: BP 124/74; PULSE 85; RESP 18
== END 2022-01-07 11:33 | disposition home or self-care (01) ==
LOC: EC 06:47
DX: R20.2 Paresthesia of skin (principal); J45.909 Unspecified asthma, uncomplicated; F17.200 Nicotine dependence, unspecified, uncomplicated; F90.9 Attention-deficit hyperactivity disorder, unspecified type; F41.9 Anxiety disorder, unspecified; F31.9 Bipolar disorder, unspecified
CPT/HCPCS: 36415; 80053; 81001; 81025; 83735; 83880; 85025; 87086; 99284

== ENCOUNTER → 2022-02-16 | Outpatient (CLI) | payer OTHER ==
[2022-02-16 12:21] LABS: Appearance,Urine Cloudy (Clear); Bilirubin,Urine Negative (Negative); Blood,Urine Negative (Negative); Color,Urine Yellow; Glucose,Urine (UA) Negative (Negative); Ketones,Urine Negative (Negative); Leukocyte Esterase,Urine Large (Negative); Mucus,Urine Many /hpf; Nitrite,Urine Negative (Negative); PH, Urine 6.5 (5.0-8.0); Protein,Urine Trace (Negative); RBC,Urine 6 /hpf (0-5); Specific Gravity,Urine 1.025 (1.001-1.035); Squamous Epithelial Cell,Urine 27 /hpf (0-4); Urobilinogen,Urine <2.0 mg/dL (<2.0); WBC,Urine 41 /hpf (0-5)
[2022-02-16 18:03] LABS: Basophils # (A) 0.07 X 10*3/uL (0.00-0.10); Basophils % (A) 0.9 %; Eosinophils # (A) 0.34 X 10*3/uL (0.04-0.35); Eosinophils % (A) 4.2 %; HCT 41.7 % (37.2-46.3); HGB 12.7 g/dL (12.0-15.0); Immature Grans, Automated 0.2 %; Lymphocytes # (A) 2.47 X 10*3/uL (0.90-5.00); Lymphocytes % (A) 30.8 %; MCH 26.7 pg (27.0-32.0); MCHC 30.5 g/dL (32.0-37.0); MCV 87.6 fL (80.0-97.0); Mean Platelet Volume 12.3 fL (9.5-12.2); Monocytes # (A) 0.53 X 10*3/uL (0.20-1.00); Monocytes % (A) 6.6 %; NRBC Per 100 WBC 0 /100 WBCS (0.0-0.0); Neutrophils # (A) 4.58 X 10*3/uL (1.80-7.70); Neutrophils % (A) 57.3 %; Platelet Count 305 X 10*3/uL (140-440); RBC 4.76 X 10*6/uL (4.10-5.20); RDW 14.9 % (11.5-14.5); WBC 8.01 X 10*3/uL (4.50-10.00)
[2022-02-16 18:16] LABS: % Iron Saturation 7.77 (12.00-45.00); HCG,Quantitative Serum <3.0 (0.0-6.0); Iron 37 ug/dL (50-170); Total Iron Binding Capacity 477 ug/dL (228-460)
== END | disposition home or self-care (01) ==
LOC: LABWHC1 11:17
PROVIDERS: ATTEND Family Medicine
DX: N92.0 Excessive and frequent menstruation with regular cycle (principal); R31.9 Hematuria, unspecified
CPT/HCPCS: 36415; 81001; 82728; 83540; 83550; 84439; 84443; 84702; 85025; 87086

== ENCOUNTER 2022-03-03 16:48 | Emergency (ER) | payer OTHER ==
[2022-03-03 17:01] VITALS: TEMP 98
[2022-03-03] MEDS ORDERED: SODIUM CHLORIDE 0.9% 1,000 ML IV STA (17:54)
--- NOTE | 2022-03-03 18:34 | ED ---
Seizure HPI - General Chief Complaint: Seizure Stated Complaint: Seizures Time Seen by Provider: 03/03/22 17:50 Source: patient, RN notes reviewed Mode of arrival: ambulatory Limitations: no limitations - History of Present Illness Initial Comments: This is a 26-year-old female who presents to the emergency department for a possible seizure. Patient states that she was with her friend on the city bus when she had the seizure. The last thing she remembers is looking out a window before the seizure. Denies any precipitating symptoms. Her friend states that she witnessed tonic-clonic movement and she believes she was unconscious for approximately 30 minutes. She was also told that she was groggy and disoriented following the event. Patient states that EMS did evaluate her on the bus, however she declined to be transported by ambulance and came to the emergency department by private vehicle. Patient denies any history of seizures. Denies currently being in any pain, but states that she does feel very anxious. Just prior to discharge, she had a friend with her in the emergency department, who said that she neglected to take her medication and eat today, and inquired as to if that could be a contributing factor. MD Complaint: seizure Description of Episode: loss of consciousness, tonic-clonic movement Witnessed: yes - by bystander Trauma: No Seizure History: none - Related Data Home Medications Medication Instructions Recorded Confirmed ARIPiprazole IM SYRINGE [Abilify 400 mg IM Q28D 03/03/22 03/03/22 Maintena Syringe] Acetaminophen [Tylenol 8 Hour] 650 mg PO Q4H PRN 03/03/22 03/03/22 Albuterol Sulfate [Albuterol 2 puff INHALATION RT-Q6H PRN 03/03/22 03/03/22 Sulfate Hfa] QUEtiapine [SEROquel] 150 mg PO HS 03/03/22 03/03/22 buPROPion HCL [Wellbutrin XL] 150 mg PO DAILY 03/03/22 03/03/22 Allergies Allergy/AdvReac Type Severity Reaction Status Date / Time cat dander Allergy Dyspnea Verified 03/03/22 18:50 dandelion (Taraxacum Allergy Allergy Verified 03/03/22 18:50 officinale) Testing dog dander Allergy Itching Verified 03/03/22 18:50 grass pollen Allergy Allergy Verified 03/03/22 18:50 Testing oak Allergy Allergy Verified 03/03/22 18:50 Testing peanut Allergy Anaphylaxis Verified 03/03/22 18:50 peas Allergy Allergy Verified 03/03/22 18:50 Testing pine nut Allergy Allergy Verified 03/03/22 18:50 Testing mold AdvReac Feels sick Verified 03/03/22 18:50 DUST Allergy Allergy Uncoded 03/03/22 18:50 Testing PINE TREES Allergy Allergy Uncoded 03/03/22 18:50 Testing Review of Systems ROS Statement: Those systems with pertinent positive or pertinent negative responses have been documented in the HPI. ROS Other: All systems not noted in ROS Statement are negative. Constitutional: Denies: fever, chills Eyes: Denies: eye pain ENT: Denies: ear pain, throat pain Respiratory: Denies: cough, dyspnea Cardiovascular: Denies: chest pain Gastrointestinal: Denies: abdominal pain, nausea, vomiting, diarrhea Genitourinary: Denies: urgency, dysuria Musculoskeletal: Denies: back pain Past Medical History Past Medical History: Asthma, Seizure Disorder Additional Past Medical History / Comment(s): allergies History of Any Multi-Drug Resistant Organisms: None Reported Past Surgical History: Section Past Anesthesia/Blood Transfusion Reactions: No Reported Reaction Past Psychological History: ADD/ADHD, Anxiety, Bipolar, Depression Smoking Status: Current every day smoker Past Alcohol Use History: None Reported Past Drug Use History: None Reported - Past Family History Mother Family Medical History: Asthma General Exam Limitations: no limitations General appearance: alert, in no apparent distress Head exam: Present: atraumatic, normocephalic, normal inspection Eye exam: Present: normal appearance, PERRL, EOMI. Absent: scleral icterus, conjunctival injection, periorbital swelling ENT exam: Present: normal exam, mucous membranes moist Neck exam: Present: normal inspection. Absent: tenderness, meningismus, lymphadenopathy Respiratory exam: Present: normal lung sounds bilaterally. Absent: respiratory distress, wheezes, rales, rhonchi, stridor Cardiovascular Exam: Present: regular rate, normal rhythm, normal heart sounds. Absent: systolic murmur, diastolic murmur, rubs, gallop, clicks GI/Abdominal exam: Present: soft, normal bowel sounds. Absent: distended, tenderness, guarding, rebound, rigid Neurological exam: Present: alert, oriented X3, CN II-XII intact Psychiatric exam: Present: normal affect, normal mood Skin exam: Present: warm, dry, intact, normal color. Absent: rash Course Vital Signs 03/03/22 03/03/22 16:59 20:09 Temperature 98 F Pulse Rate 104 H 96 Respiratory 18 16 Rate Blood Pressure 126/82 119/67 O2 Sat by Pulse 99 99 Oximetry Medical Decision Making - Medical Decision Making This is a 26 year old female who presents to the emergency department for a possible seizure. Lab work and UA were unremarkable. There are some confusing aspects of the story, such as how long the episode lasted. Additionally, I would expect her to have diffuse body pain and fatigue as is typical following a tonic clonic seizure. Discussed with the patient that what happened is unclear at this time. Instructed her to follow up with her PCP to discuss additional outpatient testing if indicated. Return precautions reviewed in depth, the patient is instructed to return to the emergency department with any new, worsening, or concerning symptoms. Patient verbalized understanding. This case was discussed in detail with the attending ED physician. Presentation, findings, and treatment plan discussed in detail as well. - Lab Data Result diagrams: 03/03/22 18:41 03/03/22 18:41 Lab Results 03/03/22 03/03/22 03/03/22 Range/Units 18:41 18:41 18:41 WBC 6.6 (3.8-10.6) k/uL RBC 4.37 (3.80-5.40) m/uL Hgb 11.9 (11.4-16.0) gm/dL Hct 38.1 (34.0-46.0) % MCV 87.2 (80.0-100.0) fL MCH 27.3 (25.0-35.0) pg MCHC 31.3 (31.0-37.0) g/dL RDW 14.6 (11.5-15.5) % Plt Count 303 (150-450) k/uL MPV 9.5 Neutrophils % 67 % Lymphocytes % 26 % Monocytes % 3 % Eosinophils % 2 % Basophils % 1 % Neutrophils # 4.4 (1.3-7.7) k/uL Lymphocytes # 1.7 (1.0-4.8) k/uL Monocytes # 0.2 (0-1.0) k/uL Eosinophils # 0.1 (0-0.7) k/uL Basophils # 0.0 (0-0.2) k/uL Hypochromasia Slight Sodium 138 (137-145) mmol/L Potassium 3.9 (3.5-5.1) mmol/L Chloride 107 (98-107) mmol/L Carbon Dioxide 23 (22-30) mmol/L Anion Gap 8 mmol/L BUN 8 (7-17) mg/dL Creatinine 0.70 (0.52-1.04) mg/dL Est GFR (CKD-EPI)AfAm >90 (>60 ml/min/1.73 sqM) Est GFR (CKD-EPI)NonAf >90 (>60 ml/min/1.73 sqM) Glucose 87 (74-99) mg/dL Calcium 9.2 (8.4-10.2) mg/dL Magnesium 2.5 H (1.6-2.3) mg/dL Total Bilirubin 0.3 (0.2-1.3) mg/dL AST 18 (14-36) U/L ALT 12 (4-34) U/L Alkaline Phosphatase 59 (38-126) U/L CK-MB (CK-2) (0.0-2.4) ng/mL Total Protein 7.5 (6.3-8.2) g/dL Albumin 4.4 (3.5-5.0) g/dL HCG, Quant <2.4 mIU/mL Urine Color Light Yellow Urine Appearance Clear (Clear) Urine pH 6.5 (5.0-8.0) Ur Specific [place] 1.005 (1.001-1.035) Urine Protein Negative (Negative) Urine Glucose (UA) Negative (Negative) Urine Ketones 1+ H (Negative) Urine Blood Negative (Negative) Urine Nitrite Negative (Negative) Urine Bilirubin Negative (Negative) Urine Urobilinogen <2.0 (<2.0) mg/dL Ur Leukocyte Esterase Negative (Negative) Urine Opiates Screen Not Detected (NotDetected) Ur Oxycodone Screen Not Detected (NotDetected) Urine Methadone Screen Not Detected (NotDetected) Ur Propoxyphene Screen Not Detected (NotDetected) Ur Barbiturates Screen Not Detected (NotDetected) U Tricyclic Antidepress Not Detected (NotDetected) Ur Phencyclidine Scrn Not Detected (NotDetected) Ur Amphetamines Screen Not Detected (NotDetected) U Methamphetamines Scrn Not Detected (NotDetected) U Benzodiazepines Scrn Not Detected (NotDetected) Urine Cocaine Screen Not Detected (NotDetected) U Marijuana (THC) Screen Not Detected (NotDetected) Serum Alcohol <10 mg/dL 03/03/22 Range/Units 18:41 WBC (3.8-10.6) k/uL RBC (3.80-5.40) m/uL Hgb (11.4-16.0) gm/dL Hct (34.0-46.0) % MCV (80.0-100.0) fL MCH (25.0-35.0) pg MCHC (31.0-37.0) g/dL RDW (11.5-15.5) % Plt Count (150-450) k/uL MPV Neutrophils % % Lymphocytes % % Monocytes % % Eosinophils % % Basophils % % Neutrophils # (1.3-7.7) k/uL Lymphocytes # (1.0-4.8) k/uL Monocytes # (0-1.0) k/uL Eosinophils # (0-0.7) k/uL Basophils # (0-0.2) k/uL Hypochromasia Sodium (137-145) mmol/L Potassium (3.5-5.1) mmol/L Chloride (98-107) mmol/L Carbon Dioxide (22-30) mmol/L Anion Gap mmol/L BUN (7-17) mg/dL Creatinine (0.52-1.04) mg/dL Est GFR (CKD-EPI)AfAm (>60 ml/min/1.73 sqM) Est GFR (CKD-EPI)NonAf (>60 ml/min/1.73 sqM) Glucose (74-99) mg/dL Calcium (8.4-10.2) mg/dL Magnesium (1.6-2.3) mg/dL Total Bilirubin (0.2-1.3) mg/dL AST (14-36) U/L ALT (4-34) U/L Alkaline Phosphatase (38-126) U/L CK-MB (CK-2) 0.3 (0.0-2.4) ng/mL Total Protein (6.3-8.2) g/dL Albumin (3.5-5.0) g/dL HCG, Quant mIU/mL Urine Color Urine Appearance (Clear) Urine pH (5.0-8.0) Ur Specific [place] (1.001-1.035) Urine Protein (Negative) Urine Glucose (UA) (Negative) Urine Ketones (Negative) Urine Blood (Negative) Urine Nitrite (Negative) Urine Bilirubin (Negative) Urine Urobilinogen (<2.0) mg/dL Ur Leukocyte Esterase (Negative) Urine Opiates Screen (NotDetected) Ur Oxycodone Screen (NotDetected) Urine Methadone Screen (NotDetected) Ur Propoxyphene Screen (NotDetected) Ur Barbiturates Screen (NotDetected) U Tricyclic Antidepress (NotDetected) Ur Phencyclidine Scrn (NotDetected) Ur Amphetamines Screen (NotDetected) U Methamphetamines Scrn (NotDetected) U Benzodiazepines Scrn (NotDetected) Urine Cocaine Screen (NotDetected) U Marijuana (THC) Screen (NotDetected) Serum Alcohol mg/dL - EKG Data EKG shows normal: sinus rhythm Rate: normal EKG Comments: Normal sinus rhythm. Ventricular rate 95 bpm, DC interval 169 ms, QRS duration 93 ms, QTC 414 ms. Disposition Clinical Impression: Syncope and collapse Disposition: HOME SELF-CARE Instructions (If sedation given, give patient instructions): Syncope (ED), Near Syncope (ED), New-Onset Seizure in Adults (ED) Additional Instructions: Return to the emergency department with any new, worsening, or concerning symptoms. Follow-up with your primary care provider in 1 to 2 days to discuss additional outpatient testing if needed. Is patient prescribed a controlled substance at d/c from ED?: No Referrals: Andrew Loja DO [Primary Care Provider] - 1-2 days
[2022-03-03 18:55] LABS: Appearance,Urine Clear (Clear); Basophils % (A) 1 %; Bilirubin,Urine Negative (Negative); Blood,Urine Negative (Negative); Color,Urine Light Yellow; Eosinophils # (A) 0.1 k/uL (0-0.7); Eosinophils % (A) 2 %; Glucose,Urine (UA) Negative (Negative); HCT 38.1 % (34.0-46.0); HGB 11.9 gm/dL (11.4-16.0); Hypochromasia Slight; Ketones,Urine 1+ (Negative); Leukocyte Esterase,Urine Negative (Negative); Lymphocytes # (A) 1.7 k/uL (1.0-4.8); Lymphocytes % (A) 26 %; MCH 27.3 pg (25.0-35.0); MCHC 31.3 g/dL (31.0-37.0); MCV 87.2 fL (80.0-100.0); Mean Platelet Volume 9.5; Monocytes # (A) 0.2 k/uL (0-1.0); Monocytes % (A) 3 %; Neutrophils # (A) 4.4 k/uL (1.3-7.7); Neutrophils % (A) 67 %; Nitrite,Urine Negative (Negative); PH, Urine 6.5 (5.0-8.0); Platelet Count 303 k/uL (150-450); Protein,Urine Negative (Negative); RBC 4.37 m/uL (3.80-5.40); RDW 14.6 % (11.5-15.5); Specific Gravity,Urine 1.005 (1.001-1.035); Urobilinogen,Urine <2.0 mg/dL (<2.0); WBC 6.6 k/uL (3.8-10.6)
[2022-03-03 19:03] LABS: Amphetamine Screen,Urine Not Detected (NotDetected); Barbiturate Screen,Urine Not Detected (NotDetected); Benzodiazepines Screen,Urine Not Detected (NotDetected); Cocaine Screen,Urine Not Detected (NotDetected); Methadone Screen, Urine Not Detected (NotDetected); Opiate Screen,Urine Not Detected (NotDetected); Oxycodone Screen, Urine Not Detected (NotDetected); Phencyclidine Screen,Urine Not Detected (NotDetected); Tricyclic Antidepressant,Urine Not Detected (NotDetected); Urn Cannabinoid Scrn Not Detected (NotDetected)
[2022-03-03 19:06] LABS: ALT 12 U/L (4-34); AST 18 U/L (14-36); African American GFR (CKD) >90 (>60 ml/min/1.73 sqM); Albumin 4.4 g/dL (3.5-5.0); Alcohol <10 mg/dL; Alkaline Phosphatase 59 U/L (38-126); Anion Gap 8 mmol/L; Blood Urea Nitrogen 8 mg/dL (7-17); Calcium 9.2 mg/dL (8.4-10.2); Carbon Dioxide 23 mmol/L (22-30); Chloride 107 mmol/L (98-107); Glucose 87 mg/dL (74-99); Magnesium 2.5 mg/dL (1.6-2.3); Non-African American GFR(CKD) >90 (>60 ml/min/1.73 sqM); Potassium 3.9 mmol/L (3.5-5.1); Sodium 138 mmol/L (137-145); Total Bilirubin 0.3 mg/dL (0.2-1.3); Total Protein 7.5 g/dL (6.3-8.2)
[2022-03-03 19:22] LABS: HCG,Quantitative Serum <2.4 mIU/mL
[2022-03-03 20:10] VITALS: BP 119/67; PULSE 96; RESP 16
== END 2022-03-03 20:10 | disposition home or self-care (01) ==
LOC: EC 16:48
DX: R55 Syncope and collapse (principal); J45.909 Unspecified asthma, uncomplicated; F17.200 Nicotine dependence, unspecified, uncomplicated; Z91.09 Other allergy status, other than to drugs and biological substances; Z88.8 Allergy status to other drugs, medicaments and biological substances; Z91.010 Allergy to peanuts; Z91.048 Other nonmedicinal substance allergy status
CPT/HCPCS: 36415; 93005; 80053; 82553; 83735; 85025; 81003; 84702; 80306; 99284; G0480; 80320